=== PATIENT | female | born 1960 | race Caucasian/White ===

== ENCOUNTER 2023-12-28 18:52 | Outpatient (REF) | payer BC, SELFPAY ==
[2024-01-03 14:09] LABS: Age Gdln ACOG Testing Note (.); HPV Aptima Negative (Negative); IGP, Aptima HPV, rfx 16/18,45 Note (.)
== END 2023-12-28 18:53 | disposition home or self-care (01) ==
LOC: LAB 18:52
PROVIDERS: PCP Family Medicine; Visit Provider Physician Assistant
DX: Z01.419 Encounter for gynecological examination (general) (routine) without abnormal findings (principal)
CPT/HCPCS: 87624; G0145

== ENCOUNTER 2025-01-01 20:13 | Outpatient (REF) | payer BC, SELFPAY ==
--- OUTSIDE RECORDS SUMMARY | 2025-01-01 20:16 | XMS_ITS | CCD ---
Author Organization [facility] Care Team Providers Care Fashion Buyer Name Role Phone Tash Recio Primary Care Physician MD Tash Recio Primary Care Provider [phone] MD Brett Scott Attending Provider [phone] MD Tash Recio Primary Care Provider [phone] MD Brett Scott Attending Provider [id number] Brett Scott Attending Unavailable Bertt Scott Admitting Unavailable Tash Recio Primary Care Unavailable Tash Recio Primary Care Unavailable Brett Scott Attending Unavailable Brett Scott Admitting Unavailable DUARTE COLINDRES Admitting Unavailable DUARTE COLINDRES Attending Unavailable ALMITA, DR BIANCHI Primary Care Unavailable KARASIK, DR WEST Admitting Unavailable KARASIK, DR WEST Attending Unavailable ALMITA, DR BIANCHI Primary Care Unavailable KARROLO, DR WEST Consulting Unavailable ALMITA, DR BIANCHI Admitting Unavailable ALMITA, DR BIANCHI Attending Unavailable OBIY, DR BIANCHI Primary Care Unavailable OBIY, DR BIANCHI Consulting Unavailable Unavailable Primary Care Provider UnavailSUNNI Herbert Attending Unavailable KAVITHA IGLESIAS Attending Unavailable SUNNI WALKER Attending Unavailable Denny Barber Admitting Unavailable Denny Barber Attending Unavailable Sunil Denny Referring Unavailable Tash Recio Consulting Unavailable REFERRAL, SELF Admitting Unavailable REFERRAL, SELF Attending Unavailable REFERRAL, SELF Referring Unavailable Tsah Recio Consulting Unavailable Ashwin Ramos Attending Unavailable Ashwin Ramos Attending Unavailable Tash Recio Referring Unavailable DUKE Durand Admitting Unavailabl e Sherin Durand Attending Unavailable NONE, XXXX Referring Unavailable STANJOSE Patel Admitting Unavailable KARENJOSE Patel Sherin L Attending Unavailable Maia Hassan Attending Unavailable Maia Hassan Referring Unavailable Maia Hassan Admitting Unavailable Maia Hassan Referring Unavailable Maia Hassan Attending Unavailable Maia Hassan Attending Unavailable Allergies Allergy Classification Reported Allergen(s) Allergy Type Date of Onset Reaction(s) Facility (1 source) No Known Medication Allergies; Translations: [No Known Medication Allergies] Propensity to adverse reactions (disorder) [facility] Repository Medications Current Medications Medication Drug Class(es) Dates Sig (Normalized) Sig (Original) acetaminophen 500 mg oral tablet (8 sources) Start: 11-23-2022 End: 12-28-2023 acetaminophen 500 mg, Oral, PRN as needed for pain, Refills(s) 0 Start Date: 11/23/22 Status: Ordered ascorbic acid 1000 mg oral tablet (3 sources) Vitamin C Ascorbic Acid (vitamin C) 1000 MG tablet 1 (one) time each day at the same time 0 Active aspirin 81 mg delayed release oral tablet (14 sources) Platelet Aggregation Inhibitor, Nonsteroidal Anti-inflammatory Drug Start: 03-14-2023 take 1 tablet by mouth once daily aspirin 81 mg Oral EC Tab 81 mg = 1 tab(s), Oral, Daily, # 30 tab(s), Refills(s) 0 Start Date: 03/14/23 Status: Ordered Start: 08-05-2021 take 1 capsule by mouth once d aily aspirin 81 mg oral capsule 81 mg = 1 cap(s), Oral, Daily, Blood Thinner Start Date: 08/05/21 Status: Ordered Matilde-C 1000 mg oral tablet (11 sources) Start: 01-31-2022 take 1 tablet by mouth once daily Matilde-C 1000 mg oral tablet 1,000 mg = 1 tab(s), Oral, Daily, Prophylaxis Start Date: 01/31/22 Status: Ordered gabapentin 100 mg oral capsule (3 sources) Anti-epileptic Agent Start: 05-12-2022 take 1 capsule by mouth once daily at bedtime gabapentin 100 mg Cap TAKE ONE CAPSULE BY MOUTH DAILY AT BEDTIME Start Date: 05/12/22 Status: Ordered ibuprofen 200 mg oral tablet (8 sources) Nonsteroidal Anti-inflammatory Drug Start: 11-04-2019 take 200 mg by mouth every six hours as needed for pain Advil 200 mg, Oral, q6hr, PRN as needed for pain, Refills(s) 0, Pain Start Date: 11/04/19 Status: Ordered [facility] [place] Medication (17 sources) Start: 05-12-2022 Misc Medicatio n See Instructions, K-2 BY MOUTH DAILY Start Date: 05/12/22 Status: Ordered Start: 05-12-2022 Misc Medicatio n See Instructions, calcium/magnesium/zinc by mouth daily Start Date: 05/12/22 Status: Ordered Multi Vitamin+ (11 sources) Start: 10-07-2019 take 1 tablet by mouth once daily Multi Vitamin+ 1 tab, Oral, Daily, Refill(s) 0, Prophylaxis Start Date: 10/07/19 Status: Ordered Vitamin D3 1000 intl units oral capsule (8 sources) Start: 01-31-2022 take 1 capsule by mouth once daily Vitamin D3 1000 intl units oral capsule 25 mcg = 1 cap(s), Oral, Daily, takes 6 days a week, Prophylaxis Start Date: 01/31/22 Status: Ordered Completed/Discontinued Medications Medication Drug Class(es) Dates Sig (Normalized) Sig (Original) alendronic acid 70 mg oral tablet (2 sources) Bisphosphonate End: 12-28-2023 take 1 tablet by mouth once daily alendronate (Fosamax) 70 MG tablet 1 tablet 30 minutes before the first food, beverage or medicine of the day with plain water Orally 0 12/28/2023 Discontinued citalopram 20 mg oral tablet (2 sources) Serotonin Reuptake Inhibitor Start: 03-01-2023 End: 12-28-2023 take 1 tablet by mouth in the morning citalopram (CeleXA) 20 MG tablet Take 20 mg by mouth in the morning. 0 03/01/2023 12/28/2023 Discontinued cyclobenzaprine hydrochloride 10 mg oral tablet (2 sources) Muscle Relaxant Start: 07-04-2023 End: 12-28-2023 take 1 tablet by mouth every eight hours as needed cyclobenzaprine (Flexeril) 10 MG tablet Take 10 mg by mouth every 8 (eight) hours if needed 0 07/04/2023 12/28/2023 Discontinued 24 hr desvenlafaxine succinate 25 mg extended release oral tablet (2 sources) Serotonin and Norepinephrine Reuptake Inhibitor Start: 11-04-2023 End: 12-28-2023 take 1 tablet by mouth every twenty-four hours in the morning desvenlafaxine succinate ER 25 MG 24 hour tablet Take 1 tablet by mouth in the morning. 0 11/04/2023 12/28/2023 Discontinued estradiol 0.1 mg/ml vaginal cream (13 sources) Estrogen Start: 05-08-2023 End: 12-28-2023 Estrace 0.1 MG/GM vaginal cream Apply 1 g topically 0 05/08/2023 12/28/2023 Discontinued Start: 05-08-2023 Estrace 0.1 mg /g Cream 1 gm, Topical, MonWedFri, 42.5 gm, Refill(s) 3, apply pea size amount around urethra opening 2x per week, [facility], 154.9, cm, 05/08/23 8:33:00 EDT, Height/Length Dosing, 92, kg, 03/14/23 8:58:00 EDT, Weight Dosing Start Date: 05/08/23 Status: Ordered Start: 08-05-2021 Estrace 0.1 mg /g Cream 1 gm, Topical, MonWedFri, 42.5 gm, Refill(s) 3, apply pea size amount around urethra opening 3x per week, [facility], 154.9, cm, 08/05/21 8:44:00 EDT, Height/Length Dosing, 104.2, kg, 08/05/21 8:44:00 EDT, Weight Dosing Start Date: 08/05/21 Status: Ordered Start: 08-05-2021 Estrace 0.1 mg /g Cream 1 gm, Topical, MonWedFri, 42.5 gm, Refill(s) 3, apply pea size amount around urethra opening 3x per week, [facility], 154.9, cm, 08/05/21 8:44:00 EDT, Height/Length Dosing, 104.2, kg, 08/05/21 8:44:00 EDT, Weight Dosing Start Date: 08/05/21 Status: Ordered fluconazole 150 mg oral tablet (2 sources) Azole Antifungal Start: 01-05-2023 End: 12-28-2023 fluconazole (Diflucan) 150 MG tablet TAKE 1 TABLET BY MOUTH SINGLE DOSE 0 01/05/2023 12/28/2023 Discontinued fluorouracil 50 mg/ml topical cream (2 sources) Nucleoside Metabolic Inhibitor Start: 05-24-2022 End: 12-28-2023 fluorouracil (Efudex) 5 % cream every 12 (twelve) hours 0 05/24/2022 12/28/2023 Discontinued hydrOXYzine hydrochloride 25 mg oral tablet (2 sources) Antihistamine Start: 03-01-2023 End: 12-28-2023 hydrOXYzine HCl (Atarax) 25 MG tablet Take 25 mg by mouth in the morning and 25 mg at noon and 25 mg in the evening and 25 mg before bedtime. 0 03/01/2023 12/28/2023 Discontinued LORazepam 1 mg oral tablet (2 sources) Benzodiazepine Start: 03-13-2023 End: 12-28-2023 take 1 tablet by mouth every eight hours as needed LORazepam (Ativan) 1 MG tablet TAKE ONE TABLET BY MOUTH EVERY 8 HOURS FOR 3 DAYS NEEDED 0 03/13/2023 12/28/2023 Discontinued meloxicam 7.5 mg oral tablet (2 sources) Nonsteroidal Anti-inflammatory Drug Start: 08-03-2023 End: 12-28-2023 take 1-2 tablets by mouth once daily as needed meloxicam (Mobic) 7.5 MG tablet TAKE 1 TO 2 TABLETS BY MOUTH ONCE DAILY NEEDED FOR 30 DAYS 0 08/03/2023 12/28/2023 Discontinued metoprolol tartrate 25 mg oral tablet (2 sources) beta-Adrenergic Roxana Start: 11-04-2023 End: 12-28-2023 take 1 tablet by mouth twice daily at mealtime metoprolol tartrate (Lopressor) 25 MG tablet TAKE ONE TABLET BY MOUTH TWICE A DAY WITH FOOD FOR 30 DAYS 0 11/04/2023 12/28/2023 Discontinued terbinafine 250 mg oral tablet (2 sources) Allylamine Antifungal Start: 11-13-2023 End: 12-28-2023 take 1 tablet by mouth once daily terbinafine (LamISIL) 250 MG tablet Indications: Onychomycosis Take 1 tablet, by mouth, once daily, 90 days 90 tablet 0 11/13/2023 12/28/2023 Discontinued Problems Active Problems Problem Classification Problem Date Documented Da te Episodic/Chronic Abdominal pain (20 sources) Inguinal pain; Translations: [Suprapubic pain] 01-31-2022 Episodic Anxiety disorders (1 source) Anxiety disorder; Translations: [Anxiety disorder, unspecified] Onset: 10-09-2023 Chronic Essential hypertension (1 source) Essential hypertension; Translations: [Essential (primary) hypertension] Onset: 10-09-2023 Chronic Genitourinary symptoms and ill-defined conditions (11 sources) Disorder of urethra 01-31-2022 Episodic Neoplasms of unspecified nature or uncertain behavior (1 source) Neoplasm of unspecified behavior of bone, soft tissue, and skin; Translations: [Neoplasm of unspecified behavior of bone, soft tissue, and skin] Onset: 09-27-2022 Episodic Other nutritional; endocrine; and metabolic disorders (11 sources) Morbid obesity 10-07-2019 Chronic Other screening for suspected conditions (not mental disorders or infectious disease) (2 sources) Patient encounter status; Translations: [Encounter for screening mammogram for malignant neoplasm of breast] 12-27-2023 Episodic Prolapse of female genital organs (11 sources) Overactive bladder due to prolapse of female genital organ 10-07-2019 Chronic Spondylosis; intervertebral disc disorders; other back problems (11 sources) Low back pain 01-31-2022 Episodic Unclassified (10 sources) Long-term current use of opiate analgesic drug Onset: 05-12-2022 05-12-2022 Comment on above: Added secondary to c urrent Opioid Treatment Agreement Urinary tract infections (11 sources) Recurrent urinary tract infection 01-31-2022 Episodic Past or Other Problems Problem Classification Problem Date Documented Da te Episodic/Chronic Sprains and strains (4 sources) Sprain of ligaments of lumbar spine, subsequent encounter; Translations: [SPRAIN LIGAMENTS LUMBAR SPN SUBSQT] Onset: 11-28-2021 Episodic Results Test Name Value Interpretation Reference Range Facility Consent for Treatmenton 12-28 Consent for Treatment [id number] Normal [facility] MA Mamm Screen w/CAD if perf and 3D Bilon 01-15-2024 MA Mamm Screen w/CAD if perf and 3D Mason Exam Date/Time: 01/15/2024 09:43 EST Reason for Exam: Z12.31 Report IMPRESSION: BIRADS 2 BENIGN FINDINGS, NORMAL INTERVAL FOLLOW-UP.12 MONTH RECALL. CLINICAL HISTORY: Z12.31. COMPARISON: 12/16/2022. COMMENT: Routine views and tomosynthesis views of both breasts were obtained. There are scattered areas of fibroglandular density. There are small stable nodular densities with intramammary lymph node suspected. No dominant breast mass nor neoplastic calcifications are identified in either breast. There has been no significant change from the previous exam. The examination was reviewed with Computer Aided Detection. Breast Density: No Mammography is very important to your health. The current [employer] and National [employer] Cancer Network guidelines recommends annual mammography beginning at age 40. This facility utilizes a reminder system to ensure all patients receive reminder notifications at the appropriate time based on the recommendations of this exam. Board Certified Radiologists. Accredited by the ACR and FDA. Ordering Provider: REFERRAL, SELF FINAL REPORT Dictated: 01/15/2024 11:46 am Marlon Carter M.D. Signed (Electronic Signature): 01/15/2024 11:46 am Signed by: Marlon Carter M.D. Transcribed by: GEOVANNY Technologist: [facility] Assessment: BI-RADS Category 2-Benign finding Recommendation: Normal interval follow-up Normal [facility] IGP,APTIMA HPV,AGE GDLNon AGE GDLN ACOG TESTING Note . [facility] Comment on above: TESTS RESULT FLAG UN ITS REF RANGE LAB Clinician Provided Cytology Information Source.............Vagina No. of containers..01 ThinPrep Vial Age Algo ACOG Yovana... 30-65 01 FLAG LEGEND: L-Low Normal,H-High Normal,LL-Alert Low,HH-Alert High <-Panic Low,>-Panic High,A-Abnormal,AA-Critical Abnormal Performed at: 01 =[address] [address] Elaine Hernandez MD, HPV APTIMA Negative Negative [facility] Comment on above: This nucleic acid am plification test detects fourteen high- risk HPV types (16,18,31,33,35,39,45,51,52,56,58,59,66,68) without differentiation. Performed at: =[address] [id number] [place]: Elaine Hernandez MD, Phone: [phone] Performed at: [address] [id number] [place] [place]: Elaine Hernandez MD, Phone: [phone] IGP, APTIMA HPV, RFX 16/18,45 Note . [facility] Comment on above: TESTS RESULT FLAG UN ITS REF RANGE LAB DIAGNOSIS: 02 NEGATIVE FOR INTRAEPITHELIAL LESION OR MALIGNANCY. Specimen adequacy: 02 Satisfactory for evaluation. Endocervical and/or squamous metaplastic cells (endocervical component) are present. Performed by: 02 Bre [place] Pre Certification Specialist (ASCP) . 02 Note: Note 02 The Pap smear is a screening test designed to aid in the detection of premalignant and malignant conditions of the uterine cervix. It is not a diagnostic procedure and should not be used as the sole means of detecting cervical cancer. Both false-positive and false-negative reports do occur. Test Methodology: Note 02 This liquid based ThinPrep(R) pap test was screened with the use of an image guided system. HPV Genotype Reflex Note 02 Criteria not met, HPV Genotype not performed. FLAG LEGEND: L-Low Normal,H-High Normal,LL-Alert Low,HH-Alert High <-Panic Low,>-Panic High,A-Abnormal,AA-Critical Abnormal Performed at: [address] [address] Elaine Hernandez MD, SPATULA-ALONE [facility] ED Note-Physicianon 10-10-20 ED Note-Physician Basic Information abdomenTime Seen: Rito WALL, Ernie 10/09/2023 09:47 Chief Complaint Pt reports she got dizzy with bilateral tingling in arms this AM around 0830. Pt reports she was feeling anxious and stressed at the time. Hx of anxiety. denies vision/speech changes. denies medical hx. denies chest pain/sob. History of Present Illness 60-year-old female comes to the ED for evaluation of paresthesias. The patient states she was at work when she became very stressed and felt like her blood pressure spiked. She states she felt weak dizzy and had generalized paresthesias. No focal area of weakness. No unilateral paresthesias. No associated headache or visual changes. No chest pain or shortness of breath. No abdominal pain nausea or vomiting. She states she did have a similar episode in the past and was seen by cardiology that time and it was thought to be due to anxiety. She states overall she is feeling improved upon evaluation here, but continues to have some generalized tingling. Review of Systems A 10 point review of systems is negative except as noted above. Medical and Surgical History: Reviewed and noted Social history: Lives at home Tobacco: Denies Physical Exam Vitals & Measurements T: 36.5 ?C(Oral) HR: 100(Peripheral) RR: 16 BP: 170/98 SpO2: 97% HT: 155 cm WT: 97.6 kg BMI: 40.62 Nurses notes and vital signs reviewed and patient is not hypoxic. General: Awake and alert, mildly anxious in appearance Skin: Warm, dry, no pallor noted. Head: Atraumatic. Neck: No JVD. Eye: Normal conjunctiva. Ears, Nose, Mouth, and Throat: Moist mucous members. Cardiovascular: Strong distal pulses. Normal cardiac rate. No peripheral edema. Chest wall: Respiratory: Respirations are nonlabored. Clear to auscultation. Back: Normal range of motion, no CVA tenderness. Musculoskeletal: Normal ROM with no gross deformity. Gastrointestinal: Soft and nontender. Urological: Neurological: Awake and alert. No focal deficits. Follows commands. GCS 15. NIHSS 0 performed at 0947 Psychiatric: Cooperative. Medical Decision Making Patient presents with generalized paresthesias, shakiness and sensation of her blood pressure spiking. She does states she had a history of this in the past with anxiety. She is off anxiety medication and declined. Medical work-up was obtained. Laboratory studies reviewed and noted. EKG with no ischemic changes. Chest x-ray with no acute infiltrates. Her blood pressure has trended down throughout her ED stay and on serial examination she is feeling improved. Results are discussed at length with her. Sound like she had a similar presentation in the past and was seen by cardiology who felt her symptoms were likely related to anxiety. This does fit her presentation today as well. However, with her presenting elevated blood pressure did recommend she transfer her blood pressures at home and discuss with her PCP. She continues to have no associated chest pain or neurological deficits. She is discharged to follow-up with PCP. Patient was encouraged to return to the ED if symptoms worsen or change. Assessment/Plan Anxiety (F41.9: Anxiety disorder, unspecified) Hypertension (I10: Essential (primary) hypertension) Orders: Automated Diff Basic Metabolic Panel CBC w/ Auto Diff ED Cardiac Monitoring eGFR Extra SST Tube Oxygen Saturation Oxygen Therapy PT & PTT Saline Lock Insert Troponin 0 Hr. Troponin 3 Hr. Troponin 6 Hr. Troponin 9 Hr. XR Chest Single View Disposition Plan Patient Discharge Condition Disposition: Discharged home Condition: Improved and stable Counseled: Patient and/or family were counseled to workup, results, treatment plan and follow-up recommendations Discharge Prescription List Prescriptions No active prescription medications Follow-up With When Contact Information Tash Recio In 3 days 10/12/2023 EST [address] [facility] [address] [place] [id number] Business (1) Additional Instructions: Patient Education Managing Anxiety, Adult Hypertension, Adult Attestation Patient seen and evaluated by the physician hospital administrative assistant. Attending physician was present in the emergency department and supervised care. This visit was performed by both the physician and an APC. I performed all aspects of the MDM as documented. This report was transcribed using voice recognition software. Every effort was made to ensure accuracy, however, inadvertently computerized supervisor research kennel mistakes may be present. Appropriate healthcare PPE was used in evaluating this patient. The patient was placed in a mask. The healthcare provider was wearing mask, gloves, and utilizing proper hand hygiene. All equipment was properly cleansed. Problem List/Past Medical History Ongoing Long-term current use of opiate analgesic drug Obesity, Class III, BMI 40-49.9 (morbid obesity) Overactive bladder due to prolapse of female genital organ Historical Inguinal pain Recurrent UTI (more content not included)... Normal [facility] Comment on above: Result Comment: Elec tronically Signed By: rEnie Veras PA-C\.br\Date and Time Signed: 10/09/23 11:28 EST\.br\Electronically Co-Signed By: Ashwin Ramos DO\.br\Date and Time Co-Signed: 10/10/23 06:57 EST Auto Diffon 10-09-2023 Basophils/100 WBC (Bld) 0.3 % Normal 0.0-2.0 [facility] Comment on above: Order Comment: Order Added by Discern Expert. Performed By: #### 2 [id number], [id number], [id number], [id number], [id number], [id number] ####[facility] [address] [place] [address] Basophils/Leukocytes Auto (Bld) [Pure # fraction] 0.0 E9/L Normal 0.0-0.2 [facility] Comment on above: Order Comment: Order Added by Discern Expert. Performed By: #### 2 550241, [id number], [id number], 2500525, [id number], [id number] ####[address] [address] Eosinophils/100 WBC (Bld) 0.2 % Normal 0.0-8.0 [facility] Comment on above: Order Comment: Order Added by Discern Expert. Performed By: #### 2 306372, [id number], 97668294, 8018265, 5950728, [id number] ####[address] [address] Eosinophils/Leukocytes Auto (Bld) [Pure # fraction] 0.0 E9/L Normal 0.0-0.5 [facility] Comment on above: Order Comment: Order Added by Discern Expert. Performed By: #### 2 912239, [id number], [id number], 0138359, 1865923, [id number] ####[address] [address] Lymphocytes/100 WBC (Bld) 20.3 % Normal 14.0-50.0 [facility] Comment on above: Order Comment: Order Added by Discern Expert. Performed By: #### 2 906991, [id number], 64600098, 4619231, 2758362, [id number] ####[address] [address] Lymphocytes/Leukocytes Auto (Bld) [Pure # fraction] 1.0 E9/L Normal 1.0-4.0 [facility] Comment on above: Order Comment: Order Added by Discern Expert. Performed By: #### 2 140243, [id number], [id number], 1568296, 2156860, [id number] ####[address] [address] Monocytes/100 WBC (Bld) 4.6 % Normal 4.0-14.0 [facility] Comment on above: Order Comment: Order Added by Discern Expert. Performed By: #### 2 945795, [id number], 70195552, 8815477, 3709343, [id number] ####[address] [place] [address] Monocytes/Leukocytes Auto (Bld) [Pure # fraction] 0.2 E9/L Normal 0.2-1.0 [facility] Comment on above: Order Comment: Order Added by Discern Expert. Performed By: #### 2 446362, 78535123, 90343912, 0044175, 9119114, [id number] ####[facility] [address] [place] [address] Neutrophils/100 WBC (Bld) 74.6 % Normal 36.0-75.0 [facility] Comment on above: Order Comment: Order Added by Discern Expert. Performed By: #### 2 540986, [id number], [id number], 2908633, 8121039, [id number] ####[facility] [address] [place] [address] Neutrophils/Leukocytes Auto (Bld) [Pure # fraction] 3.8 E9/L Normal 2.0-7.5 [facility] Comment on above: Order Comment: Order Added by Discern Expert. Performed By: #### 2 611668, 37395055, 83848064, 2589595, 6004402, [id number] ####[facility] [address] [place] [address] BMP 10-09-2023 Creatinine [Mass/Vol] 0.8 mg/dL Normal 0.5-1.3 [facility] Comment on above: Performed By: #### 2 033011, [id number], 47866080, 5520410, 1425930, [id number] ####[facility] [address] [place] [address] Urea nitrogen [Mass/Vol] 14 mg/dL Normal 5-21 [facility] Comment on above: Performed By: #### 2 295387, 57972889, 34924320, 1396003, 1919824, [id number] ####[facility] [address] [place] [address] Urea nitrogen/Creatinine [Mass ratio] 18 No Units Normal 10-20 [facility] Comment on above: Performed By: #### 2 685798, 94467244, 73722707, 5986930, 6245967, [id number] ####[facility] [address] [place] [address] Anion gap [Moles/Vol] 11 mmol/L Normal 6-16 [facility] Comment on above: Performed By: #### 2 329306, [id number], 61853804, 7470847, 0983858, [id number] ####[facility] [address] [place] [address] Calcium [Mass/Vol] 9.1 mg/dL Normal 8.9-11.1 [facility] [facility] Comment on above: Performed By: #### 2 101301, [id number], [id number], 4223805, 0150724, [id number] ####[facility] [address] [place] [address] Chloride [Moles/Vol] 106 mmol/L Normal 101-111 [facility] Comment on above: Performed By: #### 2 283942, [id number], [id number], 9296148, 4596184, 12042938 ####[facility] [address] [place] [address] CO2 [Moles/Vol] 25 mmol/L Normal 21-31 [facility] Comment on above: Performed By: #### 2 668147, 16074575, 93073636, 4168567, 5220984, 61188320 ####[facility] [address] [place] [address] Glucose [Mass/Vol] 117 mg/dL Normal 55-199 [facility] Comment on above: Result Comment: If t his glucose result represents a fasting glucose, interpretation should refer to the following reference range: 55-99 mg/dL Performed By: #### 2 209819, [id number], 04395321, 5018644, 9541610, 07624897 ####[facility] [address] [place] [address] Potassium [Moles/Vol] 3.6 mmol/L Normal 3.5-5.3 [facility] Comment on above: Performed By: #### 2 779849, 98849615, 98062490, 4474057, 3656351, 86096132 ####[facility] [address] [place] [address] Sodium [Moles/Vol] 138 mmol/L Normal 135-145 [facility] Comment on above: Performed By: #### 2 120453, 39870179, 00269386, 6115780, 4827517, 51267657 ####[facility] [address] [place] [address] CBC w/ Auto Diffon 3 Erythrocyte distribution width (RBC) [Ratio] 13.9 % Normal 10.9-14.2 [facility] Comment on above: Performed By: #### 2 478388, 20794589, 88794613, 0722606, 9845107, 66144721 ####[facility] [address] [place] [address] Hematocrit (Bld) [Volume fraction] 43.9 % Normal 34.0-46.0 [facility] Comment on above: Performed By: #### 2 074263, 91711995, 73635017, 1981483, 9915759, 60425769 ####[facility] [address] [place] [address] Hemoglobin (Bld) [Mass/Vol] 14.4 g/dL Normal 12.0-16.0 [facility] Comment on above: Performed By: #### 2 483193, 08078444, 55587725, 5531811, 2537657, 58370675 ####[facility] [address] [place] [address] MCH (RBC) [Entitic mass] 28.7 pg Normal 27.0-34.0 [facility] Comment on above: Performed By: #### 2 835801, 35558864, 35419089, 3291308, 4825805, 20424343 ####[facility] [address] [place] [address] MCHC (RBC) [Mass/Vol] 32.8 g/dL Normal 31.4-36.0 [facility] Comment on above: Performed By: #### 2 641369, 46087404, 48154321, 5048644, 3308312, 56869889 ####[place] [address] MCV (RBC) [Entitic vol] 87.4 fL Normal 80.0-100.0 [facility] Comment on above: Performed By: #### 2 042781, 45485519, 92365154, 2981525, 7166219, 24875214 ####[address] [address] Platelet mean volume (Bld) [Entitic vol] 8.6 fL Normal 6.4-10.8 [facility] Comment on above: Performed By: #### 2 630876, 52147539, 53687686, 9799987, 6556765, 54754233 ####[address] [address] Platelets (Bld) [#/Vol] 168.0 E9/L Normal 150.0-500.0 [facility] Comment on above: Performed By: #### 2 185517, 35448629, 24798456, 6106861, 8389964, 47444394 ####[address] [address] RBC (Bld) [#/Vol] 5.0 E12/L Normal 4.3-5.9 [facility] Comment on above: Performed By: #### 2 858065, 70182612, 73361829, 3376666, 1570945, 60847123 ####[place] [address] [place] [address] WBC corrected for nucl RBC Auto (Bld) [#/Vol] 5.1 E9/L Normal 4.0-11.0 [facility] Comment on above: Performed By: #### 2 308190, 43633724, 32377825, 2391943, 9707397, 25922834 ####[facility] [address] [place] [address] CHEMISTRYOrdered By: SYSTEM SYSTEM on 10-09-2023 Anion gap [Moles/Vol] 11 mmol/L Normal 6 - 16 mEq/L [facility] Calcium [Mass/Vol] 9.1 mg/dL Normal 8.9 - 11. 1 mg/dL [facility] Chloride [Moles/Vol] 106 mmol/L Normal 101 - 1 11 mmol/L [facility] CO2 [Moles/Vol] 25 mmol/L Normal 21 - 31 mmol/L [facility] Creatinine [Mass/Vol] 0.8 mg/dL Normal 0.5 - 1.3 mg/dL [facility] GFR/1.73 sq M.predicted among non-blacks MDRD (S/P/Bld) [Vol rate/Area] 83 mL/min/1.73 m2 Normal >=59mL/min/1 .73 m2 [facility] Chem S Comment on above: Interpretive Data: C hronic kidney disease could be indicated at eGFR's of less than 60 mL/min/1.73m2. Kidney failure is indicated at less than 15 mL/min/1.73m2. Glucose [Mass/Vol] 117 mg/dL Normal 55 - 199 mg/dL [facility] Comment on above: Interpretive Data: I f this glucose result represents a fasting glucose, interpretation should refer to the following reference range: 55-99 mg/dL Potassium [Moles/Vol] 3.6 mmol/L Normal 3.5 - 5.3 mmol/L [facility] Sodium [Moles/Vol] 138 mmol/L Normal 135 - 145 mmol/L [facility] Troponin I.cardiac [Mass/Vol] 3.10 pg/mL Low 10.10 - 27.10 pg/mL [facility] Comment on above: Interpretive Data: T he 95% CI (Confidence Interval) PPV (Positive Predictive Value) for myocardial infarction in females is 38 pg/mL, in males 51 pg/mL. The results should be used in conjunction with clinical conditions of myocardial infarction. (Access High Sensitivity Troponin I Instructions For Use, Iván Kenton, June 2018) Urea nitrogen [Mass/Vol] 14 mg/dL Normal 5 - 21 mg/dL [facility] Remisol Urea nitrogen/Creatinine [Mass ratio] 18 mg/mg Normal 10 - 20 [facility] Remisol CHEMISTRYOrdered By: Lab ROP User on 10-09-2023 Glucose [Mass/Vol] 111 mg/dL High 55 - 99 mg/dL [facility] POC Subsection POC Username [email or web address] Invalid Interpretation Code [facility] POC Subsection Sodium [Moles/Vol] [id number] mmol/L Invalid Interpretation Code [facility] POC Subsection Sodium [Moles/Vol] [id number] mmol/L Invalid Interpretation Code [facility] POC Subsection COAGULATIONOrdered By: Elly Stout on 10-09-2023 aPTT Coag (PPP) [Time] 32.5 s Normal 25.1 - 36.5 second(s) [facility] Auto Coag Comment on above: Interpretive Data: Analilia hankins 15 days - 4 weeks 1 - 5 months 6 - 11 months 1 - 5 years 6 - 10 years 11 - 17 years PTT Mean: 35.4 (27.6-45.6) Mean: 33.5 (24.8-40.7) Mean: 32.4 (25.1-40.7) Mean: 31.6 (24.0-39.2) Mean: 31.6 (26.9-38.7) Mean: 31.0 (24.6-38.4) Pediatric Reference ranges were obtained from a study by Linwood Mi et al. prepared from 1437 samples obtained at 7 different centers using the same coagulation reagent and instrumentation as [facility]. Currently there are no coagulation studies available worldwide for children to 14 days, and no normal ranges. Heparin therapeutic range (represented by Anti-Factor Xa activity of 0.2 - 0.4 U/mL) corresponds to PTT of 56.6 - 109.0 sec. INR Coag (PPP) [Relative time] 1.2 {INR} Invalid Interpretation Code [facility] Auto Coag Comment on above: Interpretive Data: I NR results are specifically intended to assess patients stabilized on long-term Anticoagulation therapy suggested INR s Less Intensive Anticoagulation 2.0 3.0 Conventional Range 3.0 4.5 PT Coag (PPP) [Time] 13.5 s High 9.4 - 1 2.5 second(s) [facility] Auto Coag Comment on above: Interpretive Data: 1 5 days - 4 weeks 1 - 5 months 6 -11 months 1-5 years 6-10 years 11 -17 years Mean: 11.2 (9.5-12.6) Mean: 11.0 (9.7-12.8) Mean: 11.0 (9.8-13.0) Mean: 11.3 (9.9-13.4) Mean: 11.7 (10.0-14.6) Mean: 11.8 (10.0 - 14.1) Pediatric Reference ranges were obtained from a study by abmer Yan al. prepared from 1437 samples obtained at 7 different centers using the same coagulation reagent and instrumentation as [facility]. Currently there are no coagulation studies available worldwide for children to 14 days, and no normal ranges. Capillary Glucose POCon 09-27 Glucose [Mass/Vol] 111 mg/dL High 55-99 [facility] Comment on above: Performed By: #### 2 [id number] #### [facility] [address] [place] [address] Consent for Treatmenton 09-27 Consent for Treatment [id number] .00TIFF Normal [facility] Discharge Instructionson Discharge Instructions [id number] 1.00TIFF Normal [facility] ED Clinical Summaryon 2022 ED Clinical Summary [address] [address] ED Clinical Summary Person Information Name: CLARICE DICKINSON [place]ha/[place] Age: 63 Years : 1960 Sex: Female Language: Sudanese PCP: Tash Recio MD Marital Status: Phone: [phone] MRN: Visit Id: Visit Reason: Anxiety; Paresthesia; Dizziness; LIGHT HEADED, DIZZY Speciality: Acuity: 3 Enc Type: Emergency Med Service: Emergency Arrival: 10/09/2023 09:38:37 Discharge: 10/09/2023 11:23:02 LOS: 000 01:45 Checkin: 10/09/2023 09:38:37 Checkout: 10/09/2023 11:23:02 Dispo Type: Home (Routine DC) EVENTS: Event Name Event Status Request Date/Time Start Date/Time Complete Date/Time Arrive Complete 10/09/2023 09:38:37 10/09/2023 09:38:37 10/09/2023 09:38:37 Document Home Meds Request 10/09/2023 09:38:37 Triage Complete 10/09/2023 09:38:37 10/09/2023 09:48:47 10/09/2023 09:48:47 Bed Assign Complete 10/09/2023 09:41:00 10/09/2023 09:41:00 10/09/2023 09:41:00 Dr Exam Complete 10/09/2023 09:41:00 10/09/2023 09:47:31 10/09/2023 09:47:31 RN Exam Complete 10/09/2023 09:41:00 10/09/2023 10:10:12 10/09/2023 10:10:12 Registration Complete 10/09/2023 09:41:47 10/09/2023 09:41:47 10/09/2023 09:41:47 Reg Complete Request 10/09/2023 09:41:47 Reg Bed Request Complete 10/09/2023 09:41:48 10/09/2023 09:41:48 10/09/2023 09:41:48 EKG Complete 10/09/2023 09:44:58 10/09/2023 10:03:50 Registration Request 10/09/2023 09:47:31 Dr Exam Complete 10/09/2023 09:52:25 10/09/2023 09:52:25 10/09/2023 09:52:25 Pending Labs Complete 10/09/2023 09:55:31 10/09/2023 09:55:31 10/09/2023 09:55:32 Pending Labs Request 10/09/2023 09:56:48 Lab Complete 10/09/2023 09:56:48 10/09/2023 10:36:52 Patient Care Request 10/09/2023 09:56:48 RT Request 10/09/2023 09:56:48 X-Ray Complete 10/09/2023 09:56:48 10/09/2023 10:13:55 10/09/2023 10:25:48 Pending Labs Complete 10/09/2023 10:15:41 10/09/2023 10:15:41 10/09/2023 10:36:52 Lab Complete 10/09/2023 10:15:41 10/09/2023 10:15:41 10/09/2023 10:36:52 Pending Labs Complete 10/09/2023 10:20:47 10/09/2023 10:20:47 10/09/2023 10:20:55 Lab Complete 10/09/2023 10:20:48 10/09/2023 10:20:48 10/09/2023 10:20:55 Pending Labs Complete 10/09/2023 10:25:27 10/09/2023 10:25:27 10/09/2023 10:25:27 Wet Read Complete 10/09/2023 10:25:48 10/09/2023 10:26:31 10/09/2023 10:26:31 Discharge Complete 10/09/2023 11:08:37 10/09/2023 11:23:07 10/09/2023 11:23:07 Transfer Complete 10/09/2023 11:23:07 10/09/2023 11:23:07 10/09/2023 11:23:07 ADDRESS: [address] [facility] [id number] [facility] DOC NOTES: MEDICAL INFORMATION: Prescriptions Given: Medications to Continue with No Changes Other Medications acetaminophen 500 Milligram By Mouth as needed as needed for pain. ascorbic acid (Matilde-C 1000 mg oral tablet) 1 Tablets By Mouth every day. aspirin (aspirin 81 mg Oral EC Tab) 1 Tablets By Mouth every day. estradiol topical (Estrace 0.1 mg/g Cream) 1 Gram Topical Monday. apply pea size amount around urethra opening 2x per week. Refills: 3. multivitamin (Multi Vitamin+) 1 tab By Mouth every day. Non-Formulary Medication (Misc Medication) calcium/magnesium/zin c by mouth daily. PATIENT EDUCATION INFORMATION: Instructions: Managing Anxiety, Adult; Hypertension, Adult Follow up: With: Address: When: Tash Recio [address], [address] [place] [id number] Business (1) In 3 days 10/12/2023 DIAGNOSIS: Anxiety; Hypertension Normal [facility] ED Patient Education Noteon 10-09-2023 ED Patient Education Note Cardiovascular Hypertension, Adult High blood pressure (hypertension) is when the force of blood pumping through the arteries is too strong. The arteries are the blood vessels that carry blood from the heart throughout the body. Hypertension forces the heart to work harder to pump blood and may cause arteries to become narrow or stiff. Untreated or uncontrolled hypertension can lead to a heart attack, heart failure, a stroke, kidney disease, and other problems. A blood pressure reading consists of a higher number over a lower number. Ideally, your blood pressure should be below 120/80. The first ( top ) number is called the systolic pressure. It is a measure of the pressure in your arteries as your heart beats. The second ( bottom ) number is called the diastolic pressure. It is a measure of the pressure in your arteries as the heart relaxes. What are the causes? The exact cause of this condition is not known. There are some conditions that result in high blood pressure. What increases the risk? Certain factors may make you more likely to develop high blood pressure. Some of these risk factors are under your control, including: ? Smoking. ? Not getting enough exercise or physical activity. ? Being overweight. ? Having too much fat, sugar, calories, or salt (sodium) in your diet. ? Drinking too much alcohol. Other risk factors include: ? Having a personal history of heart disease, diabetes, high cholesterol, or kidney disease. ? Stress. ? Having a family history of high blood pressure and high cholesterol. ? Having obstructive sleep apnea. ? Age. The risk increases with age. What are the signs or symptoms? High blood pressure may not cause symptoms. Very high blood pressure (hypertensive crisis) may cause: ? Headache. ? Fast or irregular heartbeats (palpitations). ? Shortness of breath. ? Nosebleed. ? Nausea and vomiting. ? Vision changes. ? Severe chest pain, dizziness, and seizures. How is this diagnosed? This condition is diagnosed by measuring your blood pressure while you are seated, with your arm resting on a flat surface, your legs uncrossed, and your feet flat on the floor. The cuff of the blood pressure monitor will be placed directly against the skin of your upper arm at the level of your heart. Blood pressure should be measured at least twice using the same arm. Certain conditions can cause a difference in blood pressure between your right and left arms. If you have a high blood pressure reading during one visit or you have normal blood pressure with other risk factors, you may be asked to: ? Return on a different day to have your blood pressure checked again. ? Monitor your blood pressure at home for 1 week or longer. If you are diagnosed with hypertension, you may have other blood or imaging tests to help your health care provider understand your overall risk for other conditions. How is this treated? This condition is treated by making healthy lifestyle changes, such as eating healthy foods, exercising more, and reducing your alcohol intake. You may be referred for counseling on a healthy diet and physical activity. Your health care provider may prescribe medicine if lifestyle changes are not enough to get your blood pressure under control and if: ? Your systolic blood pressure is above 130. ? Your diastolic blood pressure is above 80. Your personal target blood pressure may vary depending on your medical conditions, your age, and other factors. Follow these instructions at home: Eating and drinking ? Eat a diet that is high in fiber and potassium, and low in sodium, added sugar, and fat. An example of this eating plan is called the DASH diet. DASH stands for Dietary Approaches to Stop Hypertension. To eat this way: ? Eat plenty of fresh fruits and vegetables. Try to fill one half of your plate at each meal with fruits and vegetables. ? Eat whole grains, such as whole-wheat pasta, brown rice, or whole-grain bread. Fill about one fourth of your plate with whole grains. ? Eat or drink low-fat dairy products, such as skim milk or low-fat yogurt. ? Avoid fatty cuts of meat, processed or cured meats, and poultry with skin. Fill about one fourth of your plate with lean proteins, such as fish, chicken without skin, beans, eggs, or tofu. ? Avoid pre-made and processed foods. These tend to be higher in sodium, added sugar, and fat. ? Reduce your daily sodium intake. Many people with hypertension should eat less than 1,500 mg of sodium a day. ? Do not drink alcohol if: ? Your health care provider tells you not to drink. ? You are , may be , or are planning to become . ? If you drink alcohol: ? Limit how much you have to: ? 0?1 drink a day for women. ? 0?2 drinks a day for men. ? Know how much alcohol is in your drink. In the [place] one drink equals one 12 oz bottle of beer (355 mL), one 5 oz glass of wine (148 mL), or one 1? oz glass (more content not included)... Normal [facility] ED Patient Summaryon 023 ED Patient Summary [address] [address] Patient Discharge Instructions Person Information Name: CLARICE DICKINSON Age: 63 Years Arrival Date: 10/09/2023 09:38:37 Discharge Diagnosis: Anxiety; Hypertension Primary Care Physician: Tash Recio MD Provider Information Primary Provider: Ashwin Ramos DO Advanced [employer] Musician:Ernie Veras PA-C The exam and treatment you received in the Emergency Department were for an urgent problem and are not intended as complete care. It is important that you follow up with a doctor, nurse practitioner, or physician?s hospital administrative assistant for ongoing care. If your symptoms become worse or you do not improve as expected and you are unable to reach your usual health care provider, you should return to the Emergency Department. We are available 24 hours a day. CLARICE DICKINSON has been given the following list of patient education materials, prescriptions and follow-up instructions: Follow-up Instructions: With: Address: When: Tash Recio [address] [place] [address], [place] [address] Business (1) In 3 days 10/12/2023 In the event that this physician does not participate in your insurance network, please consult with your insurance company to find a nearby participating provider. Patient Education Materials: Managing Anxiety, Adult; Hypertension, Adult A MESSAGE TO ALL PATIENTS REGARDING OPIOIDS PRESCRIPTION OPIOIDS: WHAT YOU NEED TO KNOW Prescription opioids can be used to help relieve gtiyszji-ax-rdkeyb pain and are often prescribed following a surgery or injury, or for certain health conditions. These medications can be an important part of the treatment but also come with serious risks. It is important to work with your healthcare provider to make sure you are getting the safest, most effective care. WHAT ARE THE RISKS AND SIDE EFFECTS OF OPIOID USE? Prescription opioids carry serious risks of addiction and overdose, especially with prolonged use. An opioid overdose, often marked by slowed breathing, can cause sudden . The use of prescription opioids can have a number of side effects as well, even when taken as directed: ? Tolerance?meaning you might need to take more of the medication for the same pain relief ? Physical dependence?meaning you have symptoms of withdrawal when a medication is stopped ? Increased sensitivity to pain ? Constipation ? Nausea, vomiting, and dry mouth ? Sleepiness and dizziness ? Confusion ? Depression ? Low levels of testosterone that can result in lower sex drive, energy, and strength ? Itching and sweating RISKS ARE GREATER WITH: ? History of drug misuse, substance use disorder, or overdose ? Mental health conditions (such as depression or anxiety) ? Sleep apnea ? Older age (65 years and older) ? Avoid alcohol while taking prescription opioids. Also, unless specifically advised by your health care provider, medications to avoid include: ? Benzodiazepines (such as Xanax or Valium) ? Muscle relaxants (such as Soma or Flexeril) ? Hypnotics (such as Ambien or Lunesta) ? Other prescription opioids KNOW YOUR OPTIONS Talk to your health care provider about ways to manage your pain that don?t involve prescription opioids. Some of these options may actually work better and have fewer risks and side effects. Options may include: ? Pain relievers such as acetaminophen, ibuprofen, and naproxen ? Some medication that are also used for depression or seizures ? Physical therapy and exercise ? Cognitive behavioral therapy, a psychological, goal-directed approach, in which patients learn how to modify physical, behavioral, and emotional triggers of pain and stress. IF YOU ARE PRESCRIBED OPIOIDS FOR PAIN: ? Never take opioids in greater amounts or more often than prescribed. ? Follow up with your primary health care provider. o Work together to create a plan on how to manage your pain. o Talk about ways to help manage your pain that don?t involve prescription opioids. o Talk about any and all concerns and side effects. ? Help prevent misuse and abuse o Never sell or share prescription opioids. o Never use another person?s prescription opioids. ? Store prescription opioids in a secure place and out of reach of others (this may include visitors, children, friends, and family). ? Safely dispose of unused prescription opioids: Find your community drug take-back program or your pharmacy mail-back program, or flush them down the toilet, following guidance from the Food and Drug Administration (www.fda.gov/Drugs/Re sourcesForYou). ? Visit www.cdc.gov/drugoverd ose to learn about the risks of opioids abuse and overdose. ? If you believe you may be struggling with addiction, tell your health career technical education instructor and ask for guidance or call [facility]?S National Helpline at 3-697- (more content not included)... Normal [facility] HEMATOLOGYOrdered By: SYSTEM SYSTEM on 10-09-2023 Basophils/100 WBC (Bld) 0.3 % Normal 0.0 - 2.0 % [facility]eAutoSS Basophils/Leukocytes Auto (Bld) [Pure # fraction] 0.0 E9/L Normal 0.0 - 0.2 E9/L [facility]eAutoSS Eosinophils/100 WBC (Bld) 0.2 % Normal 0.0 - 8.0 % [facility]eAutoSS Eosinophils/Leukocytes Auto (Bld) [Pure # fraction] 0.0 E9/L Normal 0.0 - 0.5 E9/L [facility] Lymphocytes/100 WBC (Bld) 20.3 % Normal 14.0 - 50.0 % [facility]eAuto[facility] Lymphocytes/Leukocytes Auto (Bld) [Pure # fraction] 1.0 E9/L Normal 1.0 - 4.0 E9/L [facility]Auto[facility] Monocytes/100 WBC (Bld) 4.6 % Normal 4.0 - 14.0 % [facility]eAutoSS Monocytes/Leukocytes Auto (Bld) [Pure # fraction] 0.2 E9/L Normal 0.2 - 1.0 E9/L [facility]AutoSS Neutrophils/100 WBC (Bld) 74.6 % Normal 36.0 - 75.0 % [facility]eAutoSS Neutrophils/Leukocytes Auto (Bld) [Pure # fraction] 3.8 E9/L Normal 2.0 - 7.5 E9/L [facility] HemeAutoSS HEMATOLOGYOrdered By: Sd Jack on 10-09-2023 Erythrocyte distribution width (RBC) [Ratio] 13.9 % Normal 10.9 - 14.2 % [facility] HemeAutoSS Hematocrit (Bld) [Volume fraction] 43.9 % Normal 34.0 - 46.0 % [facility] Hemoglobin (Bld) [Mass/Vol] 14.4 g/dL Normal 12.0 - 16.0 gm/dL [facility]eAutoSS MCH (RBC) [Entitic mass] 28.7 pg Normal 27.0 - 34.0 pg [facility]eAutoSS MCHC (RBC) [Mass/Vol] 32.8 g/dL Normal 31.4 - 36.0 gm/dL [facility] MCV (RBC) [Entitic vol] 87.4 fL Normal 80.0 - 100.0 fL [facility]eAutoSS Platelet mean volume (Bld) [Entitic vol] 8.6 fL Normal 6.4 - 10.8 fL [facility]eAutoSS Platelets (Bld) [#/Vol] 168.0 E9/L Normal 150.0 - 500.0 E9/L FT HemeAutoSS RBC (Bld) [#/Vol] 5.0 E12/L Normal 4.3 - 5.9 E12/L FT HemeAutoSS WBC corrected for nucl RBC Auto (Bld) [#/Vol] 5.1 E9/L Normal 4.0 - 11.0 E9/L [facility] HemeAutoSS Monitor Recordon 10-09-2023 Monitor Record [id number]# 1.00TIFF Normal [facility] Monitor Record [id number]# 1.00TIFF Normal [facility] PT & PTTon 10-09-2023 aPTT Coag (PPP) [Time] 32.5 second(s) Normal 25.1-36.5 [facility] Comment on above: Result Comment: Para meter 15 days - 4 weeks 1 - 5 months 6 - 11 months 1 - 5 years 6 - 10 years 11 - 17 years PTT Mean: 35.4 (27.6-45.6) Mean: 33.5 (24.8-40.7) Mean: 32.4 (25.1-40.7) Mean: 31.6 (24.0-39.2) Mean: 31.6 (26.9-38.7) Mean: 31.0 (24.6-38.4) Pediatric Reference ranges were obtained from a study by Linwood Mi et al. prepared from 1437 samples obtained at 7 different centers using the same coagulation reagent and instrumentation as [facility]. Currently there are no coagulation studies available worldwide for children to 14 days, and no normal ranges. Heparin therapeutic range (represented by Anti-Factor Xa activity of 0.2 - 0.4 U/mL) corresponds to PTT of 56.6 - 109.0 sec. Performed By: #### 2 [id number], [id number], [id number], [id number], [id number], [id number] ####[facility] [address] [place] [address] INR Coag (PPP) [Relative time] 1.2 {INR} Invalid Interpretation Code [facility] Comment on above: Result Comment: INR results are specifically intended to assess patients stabilized on long-term Anticoagulation therapy suggested INR?s ?Less Intensive Anticoagulation? 2.0 ? 3.0 Conventional Range 3.0 ? 4.5 Performed By: #### 2 [id number], [id number], [id number], [id number], [id number], [id number] ####[facility] [address] [place] [address] PT Coag (PPP) [Time] 13.5 second(s) High 9.4-12.5 [facility] Comment on above: Result Comment: 15 d ays - 4 weeks 1 - 5 months 6 -11 months 1- 5 years 6-10 years 11 -17 years Mean: 11.2 (9.5-12.6) Mean: 11.0 (9.7-12.8) Mean: 11.0 (9.8-13.0) Mean: 11.3 (9.9-13.4) Mean: 11.7 (10.0-14.6) Mean: 11.8 (10.0 - 14.1) Pediatric Reference ranges were obtained from a study by Linwood Mi et al. prepared from 1437 samples obtained at 7 different centers using the same coagulation reagent and instrumentation as [facility]. Currently there are no coagulation studies available worldwide for children to 14 days, and no normal ranges. Performed By: #### 2 [id number], [id number], [id number], [id number], [id number], [id number] ####[facility] [address] [place] [address] Prescriptions/Work Noteson 1 12-09-2022 Prescriptions/Work Notes [id number]# 1.00TIFF Normal [facility] Troponin 0 Hr.on 10-09-2023 Troponin I.cardiac [Mass/Vol] 3.10 pg/mL Low 10.10-27.10 [facility] Comment on above: Result Comment: The 95% CI (Confidence Interval) PPV (Positive Predictive Value) for myocardial infarction in females is 38 pg/mL, in males 51 pg/mL. The results should be used in conjunction with clinical conditions of myocardial infarction. (Access High Sensitivity Troponin I Instructions For Use, Iván Larry, June 2018) Performed By: #### 2 [id number], [id number], [id number], [id number], [id number], [id number] ####[facility] [address] [place] [address] XR Chest Single Viewon 10-09 XR Chest Single View Exam Date/Time: 10/09/2023 10:25 EST Reason for Exam: Chest pain Report IMPRESSION: NO EVIDENCE OF ACTIVE CHEST DISEASE. CLINICAL HISTORY: Chest pain. COMPARISON: 03/13/2023. COMMENT: AP portable. The heart is normal in size. The mediastinum is unremarkable. The lungs appear clear. No infiltration nor pleural effusion is evident. No significant change is noted when compared to the prior exam. Ordering Provider: Ernie Veras FINAL REPORT Dictated: 10/09/2023 11:56 am Marlon Carter M.D. Signed (Electronic Signature): 10/09/2023 11:56 am Signed by: Marlon Carter M.D. Transcribed by: GEOVANNY Technologist: MICHELLE Technical Comments Radiation Dose: Ka,r in mGy = na DAP = na Normal [facility] eGFRon 10-09-2023 GFR/1.73 sq M.predicted among non-blacks MDRD (S/P/Bld) [Vol rate/Area] 83 mL/min/1.73 m2 Normal >=59 [facility] Comment on above: Order Comment: Order added by Discern Expert. Result Comment: Director Of Global Marketing cade kidney disease could be indicated at eGFR's of less than 60 mL/min/1.73m2. Kidney failure is indicated at less than 15 mL/min/1.73m2. Performed By: #### 2 [id number], [id number], [id number], 6804603, 1314326, [id number] ####[facility] [address] [place] [address] C Urineon 05-11-2023 Bacteria identified Cx Nom (U) Microbiology PROCEDURE: Urine Culture [R1] SOURCE: U CleanCatch BODY SITE: COLLECTED DATE/TIME: 05/08/2023 10:43 EDT RECEIVED DATE/TIME: 05/08/2023 13:49 EDT START DATE/TIME: 05/08/2023 13:49 EDT FREE TEXT SOURCE: Mo ALVAREZ, Maia Hassan MD, Maia Shahid FINAL REPORTS Final Report [] Verified Date/Time: 05/11/2023 15:07 EDT <10,000 cfu/ml Mixed skin contaminants Performing Locations R1: This test was performed at: [facility], [address] [address], [address]- , , [facility] Comment on above: Performed By: #### 2 [id number] ####[facility] [address] [place] [address] Consent for Procedure/Surger yon 05-08-2023 Consent for Procedure/Surgery [id number]# 1.00CD:127 Normal [facility] Consent for Treatmenton 04-27 Consent for Treatment [id number]#1 .00CD:127 Normal [facility] Inpatient Patient Summaryon 05-08-2023 Inpatient Patient Summary [place] [id number] Clinical Summary Person Information Name: CLARICE DICKINSON Age: 63 Years : 1960 Sex: Female PCP: Tash Recio MD Marital Status: Phone: [phone] Race: White Ethnicity: Non- or Language: Sudanese Visit Id: Visit Reason: URETHERAL LESION, RECURRENT UTI Speciality: Acuity: Enc Type: Outpatient Med Service: Surgery Arrival: 05/08/2023 08:19:21 Discharge: Dispo Type: Address: [address] [place] [phone] Provider Notes: Diagnosis: Female stress incontinence; Urethral lesion; Urgency of urination Problems Active Long-term current use of opiate analgesic drug (05/12/2022) Overactive bladder due to prolapse of female genital organ Obesity, Class III, BMI 40-49.9 (morbid obesity) Smoking Status: Functional Status: Sensory Deficits: History of Falls: Mobility Assistance Prior to Admission: ADLs: Current Level of Assistance for Self-Care/Mobility: Cognitive Status: Allergies No Known Medication Allergies Laboratory or Other Results This Visit (last charted value for your 05/08/2023 visit) No Laboratory or Other Results This Visit Measurements: Height: 154.9 cm Weight: Blood Pressure: Not Valued / Not Valued BMI: Procedures No Procedures Documented Immunizations No Immunizations Documented This Visit Final Med List: acetaminophen 500 Milligram By Mouth as needed as needed for pain. ascorbic acid (Matidle-C 1000 mg oral tablet) 1 Tablets By Mouth every day. aspirin (aspirin 81 mg Oral EC Tab) 1 Tablets By Mouth every day. estradiol topical (Estrace 0.1 mg/g Cream) 1 Gram Topical Monday. apply pea size amount around urethra opening 2x per week. Refills: 3. multivitamin (Multi Vitamin+) 1 tab By Mouth every day. Non-Formulary Medication (Misc Medication) calcium/magnesium/zin c by mouth daily. Care Team Members: Attending Physician: Maia Hassan MD Consulting Physician: Referring Physician: Maia Hassan MD Follow up: With: Address: When: Maia Hassan [address], [facility] [address] [place] [phone] Business (1) Comments: Office to schedule follow up in 3 months Patient Education Information: EU - Cystoscopy Discharge Instructions (CUSTOM) [facility] IntraOperative Documentson 0 05-08-2023 IntraOperative Documents [id number]# 1.00CD:127 [facility] Main OR Intraoperative Recor don 05-08-2023 Main OR Intraoperative Record IntraOp Document Type FTURO Summary Primary Physician: Maia Hassan MD Finalized Date/Time: 05/08/23 09:34:50 Pt. Name: CLARICE DICKINSON D.O.B./Sex: 1960 Female Med Rec #: [id number] Physician: Maia Hassan MD Financial #: [id number] Pt. Type: O Room/Bed: / Admit/Disch: 05/08/23 08:19:21 - Institution: Case Times FTURO Entry 1 Patient Times In Room 05/08/23 09:06:00 Out Room 05/08/23 09:36:00 Procedure Times Start 05/08/23 09:21:00 Stop 05/08/23 09:31:00 Anesthesia Times Last Modified By: Yamini ARAYA, Trice ESCAMILLA 05/08/23 09:29:33 Case Attendance FTURO Entry 1 Entry 2 Entry 3 Case Attendee Maia Hassan MD RN, SEJALOR, Josefa Cramer CST Role Performed Surgeon - Primary Manager Culture - Primary Scrub - Primary Time In 05/08/23 09:06:00 05/08/23 09:06:00 05/08/23 09:06:00 Time Out 05/08/23 09:36:00 05/08/23 09:36:00 05/08/23 09:36:00 Procedure CYSTOSCOPY LOCAL(.) CYSTOSCOPY LOCAL(.) CYSTOSCOPY LOCAL(.) Comments Last Modified By: Yamini ARAYA, CNOR, Yamini ARAYA, SEJALOR, Yamini ARAYA, SEJALOR, Trice 05/08/23 Trice 05/08/23 Trice 05/08/23 09:29:34 09:29:34 09:29:34 Surgical Procedures FTURO Entry 1 Procedure Description Procedure CYSTOSCOPY LOCAL Modifiers . Surgeon Description cysto Primary Procedure Yes Primary Surgeon Maia Hassan MD Start 05/08/23 09:21:00 Stop 05/08/23 09:31:00 Anesthesia Type Local Surgical Service Urology Wound Class 2 - Clean-Contaminated Last Modified By: SEJAL Kc RNOR, Trice 05/08/23 09:29:36 General Case Data FTURO Pre-Care Text: Classifies surgical wound, implements aseptic technique, initiates traffic control Entry 1 Case Information OR URO 1 FT Case Level None Wound Class 2 - Clean-Contaminated Specialty Urology Preop Diagnosis URETHERAL LESION, Postop Same As Preop No RECURRENT UTI Postop Diagnosis URETHERAL LESION, Outcomes Met? Yes Last Modified By: Yamini ARAYA, SEJALOR, Trice 05/08/23 09:27:49 Post-Care Text: The patient is free from signs and symptoms of infection EU IntraOp - FTURO Pre-Care Text: Implements protective measures prior to operative or invasive procedure, confirms identity before the operative or invasive procedure, verifies operative procedure, surgical site, and laterality Entry 1 EU Perioperative Protocols Procedure(s) CYSTOSCOPY LOCAL(.) Patient Identity Birthday, ID Band Verified (select at Check, Patient least 2): Participation Consents / H and P HandP, Surgery/Procedure Operative Site N/A Verified Consent Marking Verified Surgical Site Yes Laterality Verified n/a Verified Procedure Verified Yes Correct Patient Yes Position Verified Availability Equipment, Medication Time Out Maia Hassan MD, Verified (If Participants Yamini ARAYA, CNOR, Applicable) Bela Carnes CST, Kimberly A Time Out Complete 05/08/23 09:19:00 Allergies Reviewed? Yes Allergies Reviewed Self/Patient With Body Position Frog Legged Prep Area perineal area Prep Agents Betadine Solution Skin. Condition Unable to Visualize Additional Other (See Comment) Specimens Comment urine culture Specimens Collected Vitals - EU Blood Pressure 167/102 Pulse 89 bpm Respirations 16 br/min SPO2 EBL 0 IandO - EU Total Intake 0 mL Total Output 0 mL Outcomes Met? Yes Last Modified By: FRANCINE Kc RN, Ruthann 05/08/23 09:25:49 Post-Care Text: The patient is free from signs and symptoms of injury caused by extraneous objects Sign Out FTURO Entry 1 Before Patient Leaves OR Nurse verbally Yes Nurse verbally n/a confirms with the confirms with the team the name of team that the procedure(s) instrument, sponge, recorded and needle counts are correct (or N/A) Nurse verbally Yes Nurse verbally n/a confirms with the confirms with the team how the team whether there specimen is labeled are any equipment (including patient problems to be name), if applicable addressed Sign Out Complete 05/08/23 09:33:00 Last Modified By: FRANCINE Kc RN, Ruthann 05/08/23 09:29:49 Case Comments Finalized By: FRANCINE Kc RN, Ruthann Document Signatures Signed By: FRANCINE Kc RN, Ruthann 05/08/23 09:29 FRANCINE Kc RN, Ruthann 05/08/23 09:34 Normal [facility] Main OR Preoperative Recordo n 05-08-2023 Main OR Preoperative Record Holding Area Document Type FTURO Summary Primary Physician: Maia Hassan MD Finalized Date/Time: 05/08/23 08:33:49 Pt. Name: CLARICE DICKINSON/Sex: 1960 Female Med Rec #: [id number] Physician: Maia Hassan MD Financial #: [id number] Pt. Type: O Room/Bed: / Admit/Disch: 05/08/23 08:19:21 - Institution: Case Times Holding FTURO Pre-Care Text: Verifies consent for planned procedure, identifies individual values and wishes concerning care, includes family members in perioperative teaching Secures patient's records' belongings, and valuables, maintains patient's dignity and privacy, and maintains patient confidentiality Entry 1 In Holding 05/08/23 08:24:00 Outcomes Met? Yes Last Modified By: Josefa Mckeon RN 05/08/23 08:26:14 Post-Care Text: The patient participates in decisions affecting his or her perioperative plan of care The patient's right to privacy is maintained Surgery Checklist FTURO Entry 1 Patient Birthday, ID Band Procedure History and Physical, Identification: Check, Patient Verification: Surgical Consent, With Participation Patient NPO after Midnight: n/a Personal Items: Glasses, Jewelry Personal Items GLASSES; RINGS 3; Limitations: UP AD VADIM Comment: BRACELETS X 6; EARRINGS X 1 [place] Complaints of Pain: Yes Pain Comment: 12/06 - LOWER LEFT QUAD (ABDOMEN) Skin Integrity Dry, Warm Vitals - EU Blood Pressure 165/102 Pulse 89 bpm Respirations 16 br/min SPO2 98 % Additional None RN Reviewed Yes Specimens Collected Last Modified By: Josefa Mckeon RN 05/08/23 08:33:46 Finalized By: Josefa Mckeon RN Document Signatures Signed By: Josefa Mckeon RN 05/08/23 08:29 Josefa Mckeon RN 05/08/23 08:33 Normal [facility] Operative Reporton Operative Report Patient: CLARICE DICKINSON Age: 63 years Sex: Female : 1960 Associated Diagnoses: None Author: Maia Hassan MD Procedure Operative Information Details: Date/ Time: 05/08/2023 11:15:00. Pre-Op Dx: Urethral lesion (KAD53-CK N36.9, Discharge, Medical). Post-Op Dx: Same. Anesthesia Type: Local. Procedure: Local Cystoscopy. Complications: None. Risks/Benefits/Inform ed Consent: Surgical risks, benefits, details of the procedure have been explained to the patient, Full informed consent has been obtained. Intraoperative Information Prepped: Patient is brought back to the endoscopy suite, Patient is placed in supine position, Patient prepped in the usual fashion with Betadine solution, 2% Xylocaine Jelly is placed per Urethra, After waiting several minutes the Cystoscope is introduced. The Urethra is: Similar 5 mm yellow submucosal mass at 12-1 o'clock postion on anterior bladder neck, stable appearing, non tender.. The Bladder is: Normal, Trabeculated None (0), No bladder tumors, lesions, stones or foreign bodies.. The ureteral orifices: Show efflux of clear urine. Devices Implanted: None. Removal: Cystoscope is removed, The patient tolerated it well. Vaginal examination: Vaginal mucosa: There is moderate vaginal atrophy The urethra is patent, orthotopic. There are no masses or lesions. There is mild urethral hypermobility and ELEAZAR is seen. She is able to correctly identify her pelvic muscles after coaching, weak recruitment. No signficant anterior/posterior prolapse. Mild stage 1-2 anterior with valsalva. . Postoperative Information Discharge: Follow up arranged. Stable submucosal urethral lesion. Follow up in 3 months to see if urgency symptoms and UTIs lessen after restarting estrace cream. If not, will discuss proceeding with transurethral resection of urethral lesion under anesthesia. . Normal [facility] Comment on above: Result Comment: Elec tronically Signed By: Maia Hassan MD.\.br\Date and Time Signed: 05/08/23 11:19 EDT Outpatient Surgery Discharge Instructionon 05-08-2023 Outpatient Surgery Discharge Instruction [id number]# 1.00CD:127 Normal [facility] Outpatient Surgery Discharge Instruction [place] [id number] Patient Discharge Instructions PERSON INFORMATION Name: CLARICE DICKINSON Date of : 1960 Current Date: 05/08/2023 09:33:48 PHYSICIANS Admitting Physician: Maia Hassan MD Comment: Discharge Diagnosis: Female stress incontinence; Urethral lesion; Urgency of urination CLARICE DICKINSON has been given the following list of follow-up instructions, prescriptions, and patient education materials: IF UNABLE TO CONTACT YOUR PHYSICIAN AND YOU FEEL IT IS AN EMERGENCY, GO TO THE NEAREST EMERGENCY ROOM OR CALL 911 Follow up: With: Address: When: Maia Hassan [address] [place], [place] [phone] Business (1) Comments: Office to schedule follow up in 3 months Comment: PATIENT EDUCATION INFORMATION Instructions: Cystoscopy ? Voiding after the procedure: there may be some pain, burning, urgency, frequency and blood tinged urine following the procedure. These symptoms usually resolve within 2-5 days. Drink the amount of fluid it takes to keep the urine pink to yellow or clear in color. Drinking enough water and fluids will help to ease any discomfort after your procedure. ? If you are having problems that seem out of the ordinary, please call. ? If unable to contact your physician and you feel it is an emergency, go to the nearest emergency room or call 911 ? Diet ? you may resume your normal diet. ? Activity ? you may resume your normal activities ? Call if you have a fever over 100 degrees. ALOK Adams ANNE M, have received the attached patient education materials/instruction s and have verbalized understanding: May we do a follow up call? Yes No I was present when discharge instructions were given Patient Signature Date Clinican/Nurse Signature Date You may receive a survey from Jaelyn Marcial asking you to rate your care experience. Your feedback is important and will help us understand what we do well and how we can improve the quality of care we provide to you, your loved ones and our community. It?s an honor to serve you. Thank you for choosing [facility] Normal [facility] Progress Note-Physicianon Progress Note-Physician Patient: CLARICE DICKINSON Age: 63 years Sex: Female : 1960 Associated Diagnoses: None Author: Maia Hassan MD Health Status Allergies: Allergic Reactions (Selected) No Known Medication Allergies, Allergies (1) Active Reaction No Known Medication Allergies None Documented Current medications: (Selected) Prescriptions Prescribed Estrace 0.1 mg/g Cream: 1 gm, Topical, MonWedFri, 42.5 gm, Refill(s) 3, apply pea size amount around urethra opening 2x per week, [facility], 154.9, cm, 05/08/23 8:33:00 EDT, Height/Length Dosing, 92, kg, 03/14/23 8:58:00 EDT, Weight Dosing Documented Medications Documented Matilde-C 1000 mg oral tablet: 1,000 mg = 1 tab(s), Oral, Daily, Prophylaxis Misc Medication: See Instructions, calcium/magnesium/zin c by mouth daily Multi Vitamin+: 1 tab, Oral, Daily, Refill(s) 0, Prophylaxis acetaminophen: 500 mg, Oral, PRN as needed for pain, Refills(s) 0 aspirin 81 mg Oral EC Tab: 81 mg = 1 tab(s), Oral, Daily, # 30 tab(s), Refills(s) 0 Impression and Plan Assessment and Plan: Diagnosis: Female stress incontinence (RKI49-IR N39.3, Discharge, Medical), History of recurrent UTIs (NDR36-RI Z87.440, Working, Medical), Urethral lesion (JLO45-AK N36.9, Discharge, Medical), Urgency of urination (JIC00-PT R39.15, Discharge, Medical), Vaginal atrophy (KIC43-RP N95.2, Working, Medical). Patient presented today for follow up of urethral lesion, urinary urgency and history of recurrent UTIs. Due to patient?s recent UTI and slight worsening of urgency symptoms, I will continue topical Estrace cream and order urine culture. She has not been using Estrace cream consistently of late. Pt to restart 2 times per week. Risks/ benefits discussed. Refill sent today to pharmacy on file. 1) Urethral lesion Discussed stable appearance of submucosal urethral lesion suspicious for lipoma or cyst. Prior urine cytology 02/05/22: atypical, favor reactive; FISH negative. However, discussed how we cannot rule out malignancy without pathology. Patient with several stressors in life currently. We will continue monitoring for hematuria and worsening urinary symptoms. Discussed importance of compliance of medical therapy and follow up. -Follow up in 3 months. Will discuss proceeding with transurethral resection of urethral tumor under anesthesia at that time. Risks/benefits of procedure discussed with patient. 2) Urinary urgency, Vaginal atrophy -Worsening urgency today. -Patient will restart Estrace cream, timed voiding, pelvic floor therapy at home and follow-up in 3 months. 3) History of UTI -Self treated with Cipro 2 days ago. Had UTI 1 month ago that was treated with Cipro by PCP. Otherwise, no UTIs since last seen -We will send urine today for culture and call in antibiotic based on sensitivities. -TUR urethral lesion if UTIs continue Normal [facility] Comment on above: Result Comment: Elec tronically Signed By: Mo ALVAREZ, Maia Shahid\.br\Date and Time Signed: 05/08/23 11:28 EDT Consent for Treatmenton 06 Consent for Treatment [id number]# 1.00CD:127 Normal [facility] Consultation Noteon 05-05-20 Consultation Note Patient: CLARICE DICKINSON Age: 63 years Sex: Female : 1960 Associated Diagnoses: None Author: Sherin Durand PA-C Subjective Chief complaint Lower back pain. Leg pain- resolved. Patient is a 63-year-old female. She has a past medical history significant for a [facility] claim. The approved diagnosis code- S35.5XXA?sprain of ligaments of the lumbar spine. She underwent recent repeat bilateral L4?5 transforaminal epidural steroid injection. This was done on 03/22/2023. And she has obtained 100% relief. She states that this injection was very uncomfortable for her. She had a lot of tenseness and anxiety during the procedure. Patient states that she had a lot of discomfort for a few days after but this then resolved. About a week after she obtained 100% relief and she still has 100% relief at this time. At this time she is overall very happy. She states that she can walk and stand without problem. She is able to do the things she wants to do. Health Status Allergies: Allergic Reactions (Selected) No Known Medication Allergies, Allergies (1) Active Reaction No Known Medication Allergies None Documented Current medications: (Selected) Prescriptions Prescribed Estrace 0.1 mg/g Cream: 1 gm, Topical, MonWedFri, 42.5 gm, Refill(s) 3, apply pea size amount around urethra opening 3x per week, [facility], 154.9, cm, 08/05/21 8:44:00 EDT, Height/Length Dosing, 104.2, kg, 08/05/21 8:44:00 EDT, Weight Dosing Documented Medications Documented Advil: 200 mg, Oral, q6hr, PRN as needed for pain, Refills(s) 0, Pain Matilde-C 1000 mg oral tablet: 1,000 mg = 1 tab(s), Oral, Daily, Prophylaxis Misc Medication: See Instructions, K-2 BY MOUTH DAILY Misc Medication: See Instructions, calcium/magnesium/zin c by mouth daily Multi Vitamin+: 1 tab, Oral, Daily, Refill(s) 0, Prophylaxis Vitamin D3 1000 intl units oral capsule: 25 mcg = 1 cap(s), Oral, Daily, takes 6 days a week, Prophylaxis acetaminophen: 500 mg, Oral, PRN as needed for pain, Refills(s) 0 aspirin 81 mg Oral EC Tab: 81 mg = 1 tab(s), Oral, Daily, # 30 tab(s), Refills(s) 0 Problem list: All Problems Lower back pain / SNOMED CT 384925474 / Confirmed Obesity, Class III, BMI 40-49.9 (morbid obesity) / SNOMED CT 426305067 / Confirmed Overactive bladder due to prolapse of female genital organ / SNOMED CT 0225102973 / Confirmed Long-term current use of opiate analgesic drug / SNOMED CT 731127664683502 / Confirmed Added secondary to current Opioid Treatment Agreement Resolved: Recurrent UTI / SNOMED CT 883739995 Resolved: Suprapubic pain / SNOMED CT 477900898 Resolved: Urethral lesion / SNOMED CT 1751275 Resolved: Inguinal pain / SNOMED CT 863235098 Objective VS/Measurements BP: 141/84, BMI 39.6, respirations: 12 General: Alert and oriented, No acute distress. Overweight Eye: Normal conjunctiva. HENT: Normocephalic, Normal hearing. Cardiovascular: No edema. Musculoskeletal Normal range of motion. Normal strength. Integumentary: Warm, Dry, [place]. Injection site well-healed Neurologic: Alert, Oriented. Psychiatric: Cooperative, Appropriate mood & affect. Impression and Plan Patient is a 63-year-old female. She has a past medical history significant for a [facility] claim. The approved diagnosis code- S35.5XXA?sprain of ligaments of the lumbar spine. She underwent recent repeat bilateral L4?5 transforaminal epidural steroid injection. This was done on 03/22/2023. And she has obtained 100% relief. At this time, she is doing well. She is comfortable and happy. She is able to walk and stand without problem. She is overall very pleased with how much relief she has obtained. At this time, she is going to follow-up in 3 months for reevaluation. Call the clinic sooner if necessary. She will call should she require anything from our services. CAROLYN score: 2% Normal [facility] Comment on above: Result Comment: Elec tronically Signed By: Sherin Durand PA-C\.br\Date and Time Signed: 05/05/23 07:51 EDT\.br\Electronically Co-Signed By: Denny Barber MD\.br\Date and Time Co-Signed: 05/07/23 08:50 EDT Office/Clinic Note-Physician on 05-05-2023 Office/Clinic Note-Physician [id number]#1 .00CD:127 Normal [facility] Office/Clinic Note-Physician [id number]#1 .00CD:127 Normal [facility] Patient Correspondenceon Patient Correspondence [id number]#1 .00CD:127 Normal [facility] Patient Correspondence [id number]#1 .00CD:127 [facility] Patient History Officeon Patient History Office [id number]#1 .00CD:127 [facility] Pre-Certification Formon Pre-Certification Form [id number]# 1.00CD:127 [facility] Coding Summary.on 03-24-2023 Coding Summary. CD:[id number] W w+PGhlYWQ+MF1QDROjE45 ajQEqmF8oF2TKQHxWTjmr QERDVPsAFnBajfBhPK4jl XNjZXJu IC8+JU3gPOEyKqjojVFff 3G4uBO9X59xnw3yPJfpkP L7RXAeOlYnpykhu6xkqHy 6IDcuNmluOyBt RKBseR26SKL9wY38Jj26n LFcwXNnd1kzwIy1OoTtNX RaNQF2pIfaVDkda0UrZSR mB98tkWJpt9O8 XLWqmYqqeJUvFnDomFK6b D9wGMaklimnd4orffyqIv y0ce39bVLru5V5zCP3P1E lcuG3XNUcbREp LbwhqRPMlT3iyucwh9hcv ytsMyHsSINvIAn2EJx5SS HtnRibSrEbKU09PIZ7TPA aniPuQ9NtFUXj yHjsJjC5a9C7Rq8TJ9WEB yobY2ORNSFIBKpczWJ+PC 06nu88X9SgBzbbCzf9HGG zRBO1pLS9tF4z CKQaZAgku9C4hCZ9V6Via qQzdx3kk2ggOHZyLJzqH4 8chHVdt2D3XIPfzTM4XPF bhZlsNnMtjB39 Oyc+FREimShzd9UjKchiu 0epo3wdfBx2JnfvWBLxzu YjoSaxCTM3i6DoPe4zTOX idXI6cCF4tB0o WsBnFcZ1ACbaP704EfHjm QSqEiufV17aX7CuvMO+PH BtBog2TSOsuZcrQK0lV9Z hZGRpbmctbGVm fPskEK3dGGZpikryDDBod M1kAYZxF8y6SwRyTiX7MD pbG4BrXADcathsFk41hQ3 tFsGwUlO3MTch J3JkhnO2XMBctGPaVChrD UF7A33ew8K9FWNoAKWdOB N3rDO6kS8txHqckhsdkHC mdDsgdmVydGlj TLrdAZerT995OYUrnAwrB kNvZGluZyBEYXRlOiAgMD QvMjgvMjAyMzwvdGQ+PHR gHGR6rVrdJOGa wLDgOZtdDh4sgEycbIvbJ B8aANMvfapxKUYpuK3wQH NtqRGziOhkZS7gMURewko im780AjUeLDA2 LCTpdUXsR5CyxO7uDnNpP WJhQTYiS9RdzLExMQnmJ6 91ZJpsJsC9FPCepnTwV6Z sLWFsaWduOiB0 o3M1Cw3Rh9EydcklH6Hwk BHvGaWcAbtoMDc0W5YaOz wvdHI+YN43FJYgZH35VBn 7VJW5pLsoRDup BLGkM3LfcK6zOfLrIMPiH GRkOyc+PHRhYmxlIHdpZH RoPScxMDAlJyBzdHlsZT0 iLq3mAUVvZJYi zQonwJUhRqSit0vrAQKiV ZsjBN2guDgbG9SczXP2RO Ehf2z2Vd41P40lW2QwvMI +QDYiqFR7jCS5 bO4pVnAnGbG5KTyaS393R rZpgWIwDmowz8kfw3oqlL a6YyA4MTStemEjeWhlPDW 6e9WdCp33U94w IHdpZHRoPSIxNSUiIHZhb Bqbyg0qeS6mLb5+PGNvbC F2bBD3wZ9pSkUzGsJ8WQe jE673IqPhbGYc Jcsfb7gfg4czcGe2UpAiO ZIzbkMyyVcaXTP3n6KbIr 31U9CnjCehj9VsApu0kj8 1kONwm1A3uUW8 E1YjLUVeaxllzQMqxXnrF J3dWKAgopikUWZtmL0nOV WbZ4p4HmSgPmQ2GZbuQ5J ajeJ2GDBtsNDe MDQvrVFGuB6lyqmax6dcx cniFwNsAZKnNMk3LAo4ZL MezVpqFnPhUYO5CpP0TLY 2xQPqoD1imIve gvialE3nJvc+UVH6lOEem OZRNI8uDugerHL+PHRkIH X4jFjhNMcoJCJanW5aVRA tS9y6RyTaRrK8 BJraR4KgwdD2KNZraVHfV SAwoMISbB7xoebcg4rwdp jpNnYyBRYqNVu4HGz9AZB saWduOiBsZWZ0 RuP8AKF9yYQjfR1ppUyay ttpjV9xHqq+QmlydGggRG Q0JOe3H3QmOdj3RQLmsHx sFG8qlRSrDQoy Xu8cvYzavWpzRO9iUGCrj fssm645DmSoq5ebWIAruP BwOJcmZZH7I96ie1G0ZVZ oUFUuKKM9jTD5 eA8tpLcmockefJGyzPkku vWjmFwqALvqCXtaO909GL IsaJotXhSyWVz7S9WuZvj 1HQKziLzyGB5m cJHaWMvzYe0rpMcxoFlqV L6tLKVdjuscf118JpQez0 ojVPUxmBDiZCjrQZX2K11 ui9P5VPLrKFAb KPC5eED0wD4taZdqixfbb GVmdDsgdmVydGljYWwtYW tdP279YPPmcZipKbZmuIh 6G3EpAng8OSXa bXkzOZ7bvEWbOYzvRv6df ZojeFtvOC3eBIQnrzlon5 79WnRcr4wsRSNqoZOwGTc lBAO6O08lo9D4 IWVeSFJkZLY8gOY3xN3rs GlnbjogbGVmdDsgdmVydG caNGudOZsdL778VAIaxDl nPlBhdGllbnQg OZmrGEm3V3DaGyuypJL+P G25HVJaBM51aIYaxOMmo2 cbaAy2CzRjWJPkTPR7vEh bECgau0IbSIBm D01yvSMge7O3TLAaoBcyd JMkStBrnYB4xE4uZYydaj tdc5asbkjgRrwwt8dbjf2 6lS54P94eBRyl ZHRoPSIzMCUiIHZhbGlnb m3sdI8xGh9+FNZmmNK3iQ U3kL5qKXEtMfN2SHgqF45 9InRvcCIvPjxj d8qrf8yqbOb7TpO5TFQyz tXxpLyoHOS9u9SlPq20G8 9sIHdpZHRoPSIyMCUiIHZ enTerax0xdK9p Ii8+XMBlfVO2dMG9lH7wL wBwTzY5GRewS932JoJxkF UnNytjZ00pF8OjySZ+PHR fOrm3WDPguYyp GZ7syDTcTIsgUv7jLAK4Y gVxIyAzZIctO6XqSFPvbe khneybxGB3VAThHXVmlU0 6Xq2lvLebUWAw gMLCoX5bdfdso3aooguqC eOdYDCbJWs0IIa5JJYxvW kdEwUmQAA6ZeY9ZJG0jNC mdV9lpZfflhhy xO0bN8RnSDKuewfsJh71p S8sRfCzXtV5RDsaAga+Ql FTM9pTFgLjICCTPuUzKYl vdGQ+PHRkIHN0 rGqsECydNWXfwE3xSBAvU 1c6KyEhBfC0QFpjZ8GvMG VvwqzjBr66nT5dGlPtCnG 8IFueH2XarqG5 RNNveKAgOQymXTV8H52rs 8E8KKYrCDXfZQH5eGR1xX 1hbGlnbjogbGVmdDsgdmV ydGljYWwtYWxp Z436FHBdnFsnLsU6FbX3M oX0EpJ3F3AfUcz8KIEkaF swXH1bjNMlAXvoHb8anMn glDdqGO1uHRQr kedvBRNxqN5lILVnlKUdb LhmRV7hHMEkaluei354Zm ZcRBM9OBCnoERtW6RwnK1 yOiAjMDAwMDAw J9OnaJWvEBhnI093TPbwD gL7ACOmznKdY5GmUCEbjQ lbEzX4e6N2Wh90OjXCSQE yczwvdGQ+PHRk NZG6uTxrGFgdNNPbrY8sZ GHlD2d5FsHbLhM5GCycY2 NpGOQsfeyzYf01aT5bFoT bDmE0GBuvV3Vw vcG5AKMbyMFkTPreLBI9F 72pf4W8MZNqNZQpMCJ9sL I6cS0kyEqvzhbofDPgwWf gdmVydGljYWwt MWhrC689WPJlqKzeSpAju WFsZTwvdGQ+PNZcOCI7eD djKCamWEAxbN6fPRMeS8t 7KlGxMaB1XIuj Z8ElOXPscctjNl29mB1bR oRxXqT3MOgrN6RjjjM4NF XsbMUgECtsKDX6L10cc1J 1LGZbYMDgXKB7 nPD0cA2adKhdjnpuqXPkq DsgdmVydGljYWwtYWxpZ2 36JOSygNosWpNiyX6bZCI uYWdlbWVudDwv dGQ+DO14xg53A3BvCqvuY ix5BFKzSCG4qVJ6tI6cVU ZiRNbbx6G0hAD3J4IidiR pdq9vz0ewJMJj QZgpU18uxMHty0K9VMKnd VA3USEeyBphVpFalL53Fu c+SUOuxLuup3IcSyqrs3i vq7mqnFj5NcLf WKGtkbUgbDryMPC1f8TpT t80S90gWWltGZPcMDRwNN KwCAFqtZhcju6wyS7wQq4 +JQZbvDX6iEE5 eQ6hNiQnHzY0MGdsT628G zWaqINlJfboc7czb3rteI t6EzIvIAJefaPhiPumVBA 3g3NbEe24J1Ot bLbgj1YmUtq3mr73xXLuw 4W1pMN1N1OlWUSrviqtoE HjzJtxQM3vLVEhhmnhEXT gaU0qGDXlS0b9 ZuMlMnQ8EXvcX0WjwvM1K CKmvITnDFKsrQDDpZ7dxn vom9szhzblKnOsLCBqAPd 3SKa6DFZzrXat OeFiMBN8GiI7CQR9hQTzx H3zyPordfuyyC9tCfb+UG o7y4pwuXCmHK7mwBU2JW9 5VK67kZQgs9V0 fBQ6Y2UaRPLfxzddlygit AS1UJEzMTBupO35Yy4upI bxJt4xSFLbUSK3FCXjoUF oQ5EwwY3bXtBr HIWuKJDhT5LbkLXtOVutO 926TSibWaO5AKTxosRpX5 GbNYJuyRqjIcP4w0L0Wl4 IHC21SY03IH58 fYLvn1B3mKF8S7OmTGZbh uwtcqzifAU2NKEePDIqwI 15Zy1wjXyvNt8dCMUrKTJ 8QYZixSPnR7Ri wI5wTjZhRIQsMORxI5Hfn EIhMHnzI260IYvkHwH2GJ ZdlaZfU2XoOJDuhReoWuL 5h1M3Ni6MVx38 CE25TT76bPJxw8N1tAA5O 3LjQMFxlqtunxaewJQ6YD QuEPCouX36Vz6ylFzpIt5 qUNPeLAS4GOYm zRHkW2RdfD7fOwGsYZUcK CXhU3IweUTjFKiuR494AA niHtA8JZYiunAgH3PnCAP fgPcsUfR4n2L0 Xr5IAXjbpwv2J4XqTqzwf HI+BK54PFZpNY05uTFgkI Jdb9izeRf4QwAcDYVyIKL 1hBouHUxhs4Xb ZKAcF85e (more content not included)... Normal [facility] Consent for Procedure/Surger yon 03-22-2023 Consent for Procedure/Surgery [id number]#1. 00CD:127 [facility] Consent for Treatmenton 02-26 Consent for Treatment [id number]#1 .00CD:127 [facility] Discharge Instructionson Discharge Instructions [id number]#1. 00CD:127 [facility] IntraOperative Documentson 0 03-22-2023 IntraOperative Documents [id number]#1. 00CD:127 [facility] Main OR Intraoperative Recor don 03-22-2023 Main OR Intraoperative Record IntraOp Document Type FTPM Summary Primary Physician: Denny Barber MD Finalized Date/Time: 03/22/23 08:09:36 Pt. Name: CLARICE DICKINSON D.O.B./Sex: 1960 Female Med Rec #: [id number] Physician: Denny Barber MD Financial #: [id number] Pt. Type: P Room/Bed: / Admit/Disch: 03/22/23 06:57:25 - Institution: Case Times FTPM Entry 1 Patient Times In Room 03/22/23 07:59:00 Out Room 03/22/23 08:08:00 Procedure Times Start 03/22/23 08:02:00 Stop 03/22/23 08:07:00 Anesthesia Times Last Modified By: Sharri Wilson RN 03/22/23 08:09:24 Case Attendance FTPM Entry 1 Entry 2 Entry 3 Case Attendee Sunil ALVAREZ, Denny Fuentes RN, Sharri Tate RN Role Performed Surgeon - Primary Scrub - Primary Manager Culture - Primary Time In 03/22/23 07:59:00 03/22/23 07:59:00 03/22/23 07:59:00 Time Out 03/22/23 08:08:00 03/22/23 08:08:00 03/22/23 08:08:00 Procedure TRANSFORAMINAL EPIDURAL TRANSFORAMINAL EPIDURAL TRANSFORAMINAL EPIDURAL STEROID STEROID STEROID INJECTIO(Bilateral) INJECTIO(Bilateral) INJECTIO(Bilateral) Comments Last Modified By: Sharri Wilson RN 03/22/23 Sharri Wilson RN 03/22/23 Sharri Wilson RN 03/22/23 08:09:24 08:09:24 08:09:24 Entry 4 Case Attendee Kavitha Villalta Role Performed Speech Communication Instructor Time In 03/22/23 07:59:00 Time Out 03/22/23 08:08:00 Procedure TRANSFORAMINAL EPIDURAL STEROID INJECTIO(Bilateral) Comments Last Modified By: Sharri Wilson RN 03/22/23 08:09:24 Perioperative Protocols FTPM Pre-Care Text: Implements protective measures prior to operative or invasive procedure, confirms identity before the operative or invasive procedure, verifies operative procedure, surgical site, and laterality Entry 1 Procedure(s) TRANSFORAMINAL EPIDURAL Patient Identity Birthday, ID Band STEROID Verified (select at Check, Patient INJECTIO(Bilateral) least 2): Participation Consents / H and P HandP, Surgery/Procedure Operative Site Present Verified Consent Marking Verified Surgical Site Yes Laterality Verified Yes Verified Procedure Verified Yes Correct Patient Yes Position Verified Availability Equipment, Medication, Prep Dry Yes Verified (If X-ray Applicable) PreOp Antibiotic No Time Out Sharri Wilson RN, Smith Given Participants RN, Sunil Castillo MD, Ambar Baldwin Amy Time Out Complete 03/22/23 08:00:00 Outcomes Met? Yes Last Modified By: Sharri Wilson RN 03/22/23 08:00:12 Post-Care Text: The patient is free from signs and symptoms of injury caused by extraneous objects Allergy Information FTPM Pre-Care Text: Verifies allergies Entry 1 Allergies Reviewed? Yes Allergies Reviewed Self/Patient With Outcomes Met? Yes Last Modified By: Sharri Wilson RN 03/22/23 07:21:18 Post-Care Text: The patient received appropriate medication(s) safely administered during the perioperative period Surgical Procedures FTPM Entry 1 Procedure Description Procedure TRANSFORAMINAL EPIDURAL Modifiers Bilateral STEROID INJECTION Surgeon Description L4 TFESI Primary Procedure Yes Primary Surgeon Sunil ALVAREZ, Denny Start 03/22/23 08:02:00 Stop 03/22/23 08:07:00 Anesthesia Type None Surgical Service Pain Management Wound Class 1 - Clean Last Modified By: Sharri Wilson RN 03/22/23 08:09:26 General Case Data FTPM Pre-Care Text: Classifies surgical wound, implements aseptic technique, initiates traffic control Entry 1 Case Information OR Pain Proc Room Case Level Level 2 Wound Class 1 - Clean Specialty Pain Management Preop Diagnosis S33.5XXA Postop Same As Preop Yes Postop Diagnosis S33.5XXA Outcomes Met? Yes Last Modified By: Sharri Wilson RN 03/22/23 07:21:30 Post-Care Text: The patient is free from signs and symptoms of infection Skin Assessment (Pre Procedure) FTPM Pre-Care Text: Implements protective measures to prevent skin/ tissue injury due to thermal or mechanical sources Evaluates for signs and symptoms of physical injury to skin and tissue Entry 1 Skin Integrity Intact, [place], Warm, and Skin Abnormality No Dry Outcomes Met? Yes Last Modified By: Sharri Wilson RN 03/22/23 07:21:41 Post-Care Text: The patient is free from signs and symptoms of injury caused by extraneous objects Patient Positioning FTPM Pre-Care Text: Identifies physical alterations that require additional precautions for procedure-specific positioning, verifies presence of prosthetics or corrective devices, positions the patient, evaluates the patient for signs and symptoms of injury as a result of positioning Entry 1 Procedure TRANSFORAMINAL EPIDURAL Body Position Prone STEROID INJECTIO(Bilateral) Feet Uncrossed? Yes Left Arm Position Resting at Side Right Arm Position Resting at Side Left Leg Position Extended Right Leg Position Extended Positioning Device Pillow Under Head Large, Safety Strap, Pillow Large Under Knees Press Points Checked Yes By Sharri Wilson RN Outcomes Met? Yes Last Modified By: Sharri Wilson RN 04 (more content not included)... Normal [facility] Main OR Preoperative Recordo n 03-22-2023 Main OR Preoperative Record Holding Area Document Type FTPM Summary Primary Physician: Denny Barber MD Finalized Date/Time: 03/22/23 07:17:47 Pt. Name: ALOKCLARICE D.O.B./Sex: 1960 Female Med Rec #: [id number] Physician: Denny Barber MD Financial #: [id number] Pt. Type: P Room/Bed: / Admit/Disch: 03/22/23 06:57:25 - Institution: Case Times Holding FTPM Pre-Care Text: Verifies consent for planned procedure, identifies individual values and wishes concerning care, includes family members in perioperative teaching Secures patient's records' belongings, and valuables, maintains patient's dignity and privacy, and maintains patient confidentiality Entry 1 In Holding 03/22/23 07:16:00 Outcomes Met? Yes Last Modified By: Trudy Golden RN 03/22/23 07:16:05 Post-Care Text: The patient participates in decisions affecting his or her perioperative plan of care The patient's right to privacy is maintained Surgery Checklist FTPM Entry 1 Patient Birthday, ID Band Procedure History and Physical, Identification: Check, Patient Verification: Surgical Consent, With Participation Patient NPO after Midnight: No Date/Time: 03/22/23 07:16:00 Results Reviewed 0630 cup of coffee Personal Items: Dentures, Glasses, Comments: Jewelry Personal Items Pt. wearing upper Complaints of Pain: Yes Comment: partial, one ring and glasses. Pain Comment: 2/10 lower back pain Operative Site Yes Marking: Marked By: Dr. Barber Location: bilateral L4 Availability Equipment, X-Ray Verified: Does Patient Smoke No Patient states Yes Comment - Adult -Bunny postop adult Supervision supervision available Case Cancelled in No Holding Area see comments below for reason Last Modified By: Trudy Golden RN 03/22/23 07:17:43 Finalized By: Trudy Golden RN Document Signatures Signed By: Trudy Golden RN 03/22/23 07:17 Trudy Golden RN 03/22/23 07:17 [facility] Operative Reporton Operative Report SURGERY DATE: 03/22/2023 DIAGNOSIS: Lumbar sprain OPERATION: Bilateral lumbar transforaminal epidural steroid injection under fluoroscopic guidance of the L4 nerve roots at the L4-L5 foramina SOLUTION USED: 1 mL of 2% lidocaine, 3 mL of normal saline and 1 mL of Kenalog 40 mg, 5 mL total, 2.5 mL per site; contrast was 1 mL of Isovue per site; local anesthetic was 2 mL of lidocaine 1% per site ANESTHESIA: Local COMPLICATIONS: None PROCEDURE: After informed consent was obtained, the patient was brought to the Operating Room and placed in the prone position. The area in question was prepped and draped in a sterile fashion. An ipsilateral oblique fluoroscopic view of the lumbar spine was obtained and after a local anesthetic was administered into the skin, a 22 gauge Chiba needle was inserted into the skin and advanced to the 6 o'clock position beneath the left L4 pedicle under intermittent fluoroscopic guidance. Proper needle position was confirmed via AP and lateral fluoroscopy. Contrast was administered under live fluoroscopy in both views and demonstrated appropriate epidural and nerve root uptake and the absence of any intravascular or intrathecal spread. The local anesthetic steroid solution was injected incrementally. The needle was removed. Bleeding was nil. The procedure was repeated in the same manner at the same level on the opposite side. The patient tolerated the procedure well and was transferred to the Recovery Room in good condition. Denny Barber M.D. [facility] Comment on above: Result Comment: Elec tronically Signed By: Sunil ALVAREZ, Denny\.br\Date and Time Signed: 03/22/23 08:08 EDT Heart and Vascular Office/Cl inic Noteon 03-20-2023 Heart and Vascular Office/Clinic Note Chief Complaint here for f/uof ED visit History of Present Illness Clarice Dickinson is a 63-year-old female patient here today for follow-up after ER visit. She had gone to [facility], ER with complaints of bilateral upper extremities paresthesias. She had no chest pain per se, they did do an EKG which was nonacute and troponins which were negative. She had been seen by Dr. Dodson in the past for abnormal EKG prior to MRI requiring sedation. ordered echocardiogram which showed normal LV function, RVSP of 38 mmHg. Doing well today, no new cardiac complaints. Her symptoms are driven by psychosocial stressors. She describes her discomfort as numbness and tingling in the arms. Occasionally she will get some chest tightness when stressed emotionally. No family history, no tobacco use, no other significant cardiac risk factors beyond age and gender. Review of Systems Constitutional: no fever, no chills, no weakness, no fatigue Respiratory: no shortness of breath, no cough, no orthopnea, no wheezing Cardiovascular: no chest pain, no palpitations, no edema Neuro:no dizziness no light headed no syncope Additional ROS info: Except as noted in the above Review of Systems and in the History of Present Illness all other systems have been reviewed and are negative or noncontributory. Physical Exam Vitals & Measurements HR: 88(Peripheral) BP: 128/84 SpO2: 97% HT: 61 in HT: 155 cm WT: 92 kg WT: 202.4 lb BMI: 38.29 General: alert, no acute distress Neck: Supple, noJVD nocarotid bruit Cardiovascular: regular rate and rhythm, no murmur normal peripheral perfusion Respiratory: Lungs CTA, respirations non labored Extremities:no edema Neurological: oriented x 4, LOC appropriate for age, sensation equal & normal bilaterally, speech normal Skin: Warm, dry, intact- no rash or concerning lesions Cardiac Diagnostics (02/28/2022 09:54 EDT Echo Transthoracic Complete) SUMMARY/CONCLUSION: 1. Normal left ventricular size and function with a left ventricular ejection fraction of 65%. 2. Mild left atrial enlargement. 3. Trivial tricuspid regurgitation with mildly elevated pulmonary pressures of 38 mmHg. 4. Stage 1 diastolic dysfunction. 5. No old echocardiograms for comparison. [1] Assessment/Plan 1. Chest pain (R07.9: Chest pain, unspecified) Her chest pain is atypical. Her EKG is unchanged from prior, troponin was negative. Her echocardiogram shows normal LV function. She can continue her daily aspirin. We discussed stress ECG to rule out ischemia. She could also have coronary artery calcium score. She will call us after school is finished and we will likely proceed with stress testing, does not want to schedule today, which is fine Follow-up With When Contact Information ALL GARCIA, Sherin[place] [address]- [phone] Additional Instructions: Follow-up after cardiac testing. Problem List/Past Medical History Ongoing Long-term current use of opiate analgesic drug Obesity, Class III, BMI 40-49.9 (morbid obesity) Overactive bladder due to prolapse of female genital organ Historical Inguinal pain Recurrent UTI Suprapubic pain Urethral lesion Procedure/Surgical History Eye (12/13/2022), Epidural injection of lumbar spine using fluoroscopic guidance (11/23/2022), Injection of nerve root of lumbar spine using fluoroscopic guidance (07/06/2022), MRI - Magnetic resonance imaging (04/08/2022), Partial hysterectomy (2005), History of knee surgery. Medications acetaminophen, 500 mg, Oral, PRN Advil, 200 mg, Oral, q6hr, PRN aspirin 81 mg oral capsule, 81 mg= 1 cap(s), Oral, Daily aspirin 81 mg Oral EC Tab, 81 mg= 1 tab(s), Oral, Daily Matilde-C 1000 mg oral tablet, 1000 mg= 1 tab(s), Oral, Daily Estrace 0.1 mg/g Cream, 1 gm, Topical, MonWedFri, 3 refills Misc Medication, See Instructions Misc Medication, See Instructions Multi Vitamin+, 1 tab, Oral, Daily Vitamin D3 1000 intl units oral capsule, 25 mcg= 1 cap(s), Oral, Daily Allergies No Known Medication Allergies Social History Alcohol - Denies Alcohol Use, 03/30/2018 1-2 times per year, 03/13/2023 Substance Abuse - Denies Substance Abuse, 03/30/2018 Tobacco - Denies Tobacco Use, 03/30/2018 Never (less than 100 in lifetime) Tobacco Use:. Never Smokeless Tobacco Use:., 03/14/2023 Family History Family history is negative Immunizations Vaccine Date Status SARS-CoV-2 (COVID-19) mRNA-1273 vaccine 03/12/2021 Recorded SARS-CoV-2 (COVID-19) mRNA-1273 vaccine 02/10/2021 Recorded [1] Echo Transthoracic Complete; Jonathan ALVAREZ, Raphael Negro 02/28/2022 09:54 EDT Normal [facility] Comment on above: Result Comment: Elec tronically Signed By: Sherin CARRIZALES CNP\Date and Time Signed: 03/20/23 14:22 EDT Coding Summary.on 03-16-2023 Coding Summary. CD:[id number] W w+PGhlYWQ+UW2VVBCcS46 ojWRlnE5kC5OXSTkSTeft HILSYRmIJtKxqpKgKS0qw XNjZXJu IC8+UN1hDXLbOjkqzGEbp 5G0bKQ7W66msl5aOWsuvX A4SAWrRiZevhkbv6rihKg 6IDcuNmluOyBt CQGfdD26KGU6fY57Zn13m TThaFAou6zokBx3GfCpHN MsUVC0uEtgCHwtr5ZgYYK eH84qdWTpi9C5 YHMrsDaxnCPxXwMalIX7l L4uYUpxkooxh3owefkaYz z7sv39bRZsd2H3aUL6Z6D siiH3ZFQutXQc UahxfIRVvR0qlazez5vec lqaRtFzYGRuUAu9KPp4QR QitMisTuDlCY71VNA5JKW kayZhC7YzDVQg gSppHjM5a3F3Cl2US8MOQ lkoU7EVFPDSYJtraTP+PC 70wq22X7NpZnhrQgf1EBX tPJV5cHB1zJ4e IPJuASadl4E3kRO0U2Lwh vLmfm1vy5xaEDJhXDylQ8 8ovJBxo9Z0VYXucQS7OIR vtAucMyHvhY45 Oyc+OZEviZbkr2CaAzpsb 7pym2xeaVt6JsvuFKUdyr CfqKuuIGD7q4HfVh9yKTI btLI3zIX9mC7r QrUyOlP0JAogN879QwHcz UOxRmpiW15iB5TewYG+PH EiBfp4YSXokAlrVC3rI4C hZGRpbmctbGVm xEzzPE6jCUYfayacOMKmk C0wWDNdB1n5JzFbAjX8SZ flD5HyYNFvfainUd10bQ8 jOuKxOyV9QDbc V6MmnhC0ABNyjNJrVBqpH UD2M60uj7I0JPAfXTDfHD J2pFW2yZ0znSvdaqmlkXV mdDsgdmVydGlj HGgzJUqwW875BMCzyFyuM kNvZGluZyBEYXRlOiAgMD QvMjAvMjAyMzwvdGQ+PHR pPHW5zLopNVIc oGEgMLbbQm2hzFyxdIvsR F6jZNOdcewgIRVkyF5yBK XbdYKbsUvpGU7hAXYgine db757RnQtYRX7 FDCzlCRbB4PhmZ2yDdWtM NVtWKVqT2OhtGVtEMclK5 09UDajTzO1RMZsuuViO7Y sLWFsaWduOiB0 j0X6Xs0No1LpsaxcO6Xkw HEvIdEfWwucQZo7B3LlNl wvdHI+QS81TNKiOI59WFb 7QDX5fZcyIYzv JBUsS1AerW3tPgHhKRQpT GRkOyc+PHRhYmxlIHdpZH RoPScxMDAlJyBzdHlsZT0 zGz9jYGTyUOSx eFkymREiXvBri4ipNFQiY DutIV6tpPajW8XjnGE7YS Xhs3l9Mu85Q21rK8ZabXA +ESZglXJ6pDM5 uW0yYpAoYwP6FYuqP646M dBluWZfIuwzg6brl8ocyP m8KsO5OVWsldEbbVgmEZG 6f2JpCa45P55c IHdpZHRoPSIxNSUiIHZhb Ujrag8yrA5nSp8+PGNvbC D7pOQ5bH9mFcEmTkW2KGf vI471KeCooKDv Cqfxj1wlk5hxuHq8YoPuR VEnewIauRvvCJR3p6FgLk 32N7SxgYzll8UtNit0cl2 3nAUfd9K0xAZ6 S2NkUOXywxrulTDnfFjhN U6zSKOhabmfDQPpeN9dVF SvN6s5UtCbWlX3QNfvC0T nazL2YYIwkZMy YBEkgPCUeJ8vhzgpk8sfp kxjMdXlBWUhSRd5ZSt4DO SirQpnQvYgWGX5GnB4ZPC 1vPGuqR1qqYqw wtusbE5qRrw+DBV5jVZam ASRXR2uRovhtBV+PHRkIH V8qDieJJtwRWFqmN3jQCU mI5q7AvOoGdW1 CLmwZ5RzkfA8HSUwlAJwA KDurEYJbH4xlzkjn9ysqe rmSvIsNKGgZLs7MPz0SZO saWduOiBsZWZ0 BuC9MAC7tYOqsZ2nxBfzb uazqF6iAof+QmlydGggRG E5SDo6N8CjBso8TKJglYl qUY2lpRXcTGrw Ep9qrHrmnPqeAP9fVMVya hivn943NgPlp6rfMPAfuQ HoZSykWQL6E67wz5G8CDS eORPfWDA9eQN0 cY4ajUbcmxvqkDVxfTtsb wHmlZqwSOmhPMybZ147VI MwxEvdMxZlCPu6I5HkDig 3UXUkiOlrNW3x uPGlVAgyQe3kwAfcnXbzO S2tTHGrpuyum461QnPgl4 ssOUNrqEPeLVeqPPM4K17 ql2C6WTYsXBBw RGM6bZB3aR3ioVdbjndqc GVmdDsgdmVydGljYWwtYW wpY181FPOdyGphXuEliNx 2B6IjLku9MYFh xDwjSU6fpTGvAVykKx2zx SonkUsoRE9mOKPozgnyr5 14ZdRbm0nmTZSnwWTgLQx wLVO9N70jg3D1 QBLeZMCsHTU6fZY1pB5rs GlnbjogbGVmdDsgdmVydG fwJFawJWcsS193HXUdjJc nPlBhdGllbnQg VPhmQCm2Y7QyGwlhqBP+P T15RPRdWC15zCQlgNWec5 tuvCm8OyApEVIaGZC2bSk oWAxxw3BtTJJt Q69idJTjl1X2BHZxfTtxm YUyFmGaeTT9qK0rAChfsg qvg3pazwptWmxqq3xowu3 2gO40O05rKLly ZHRoPSIzMCUiIHZhbGlnb e2cyP0hPt5+LONgpXL5uS L1cO5uHUMaIbW2FIagH01 9InRvcCIvPjxj i3fxz0mzpJt6KkL4UODew tHcnAjiVKY4r5SvMq74F4 9sIHdpZHRoPSIyMCUiIHZ erOhvdj6wmW5f Ii8+ICNwtOW9jPC5lO4xK nHyNaL9BExxE700DnKovI TrKpvqL10dL3WnvOV+PHR xYsw1EWXseJlj DF4zfBKrZGtjGz6dRGP4X jRxYrEwODbiE5ZxLGKpam gllgxknJN7JXRvBNNvcT8 1Tq2zlHfqRREu jXZSbU5athbyf3lkgmarO zCpPNGpKYy0CAu9ROKcpK yoChPhPGH6IcZ3WHO2eFP vtX9wpGxrojzv hK2uK9HaAHGjvhvvUf20w A7aXuNpLxM8QCqqDoq+Ql AQC7zNUbNaFAQJAzKoOIf vdGQ+PHRkIHN0 zZxeKEwpKPHlhR9jGQSzP 8b9SkYuOsE7XXjxV2FiWL QuvxinZx88eR9pInMhUhI 0IQwhM4XjngS1 IWVbvNZiSLseWYS6E23al 6G8ENHhDLYoGQN8yHN3zJ 1hbGlnbjogbGVmdDsgdmV ydGljYWwtYWxp V939FKXjhEscSpA3BhG0Z aA4YwO5L5JiXhd9ZJJiwA rjJO9pdUKbKKgrBx0cpIn izAmkNQ2vMQGm eusyRNBznX8cBHThvGYib DmgSM4fHJYnwavxa110Bp DbBKW6OLEekLFcT0EcfJ4 yOiAjMDAwMDAw M7DasRRjRXydM406FQupK jR1VYGzviSeD3JpCOXknF dlGlC3m4D2To74RyZQAFK yczwvdGQ+PHRk OHO0aZeyCNfeMQBxlE7nL SIzD1f4SoVoGfN8NBcdU5 LuKAYratljAh62vN1fEeL nHnQ5GWnrG2On daL8WGQhrPOaKOgyMMJ7L 51un7Q4BHYtDNMfVXG9tD P4fF3epIgyakkdyOEbsKr gdmVydGljYWwt UZmsE633LKBfdRitOcXlk WFsZTwvdGQ+XMSuYVI1eM bbFPoaBLLorH3xTIOiQ3z 7GiOoLoZ5EEkz C1TcBQVwckvsBf96pH5xU tTaNjO4HJzoK9SowlO3PV KjnCDaBBzvNJD2D62ko7O 7HXEfZSSuLXY7 mQN3lU1svHkqxpevnQImn DsgdmVydGljYWwtYWxpZ2 84MKKapXapKfRqOTGwAR2 jeTwvdGQ+PC90 pi17N9LrPamsEgc3EPVeG FN3eZM6yQ0mADIePJsww4 W4iWH4L8AsmmLwnc8we0w jMCSfWPjqU49i uATah5H4KJLzmDN3DTKcc CjaPfUvwH39Dyr+PGNvbG mok4OkBtucp0qhm0jfsIk 9IjMwJSIgdmFs oExrMPM0s7CzNx78K93qI HdpZHRoPSIzMCUiIHZhbG mdjv6xdN1oLz3+PGNvbCB 2fUF3uR8fUhBl AeF5LBeaV502UaWbwDZiO utyp0mcm8vjdEd9LjZbVD IwbkAhiHzxHEJ2g8EkJv3 6G2ExrWmfr5Mz Ekh3om07eEQvj0K5lVX8U 3BhZGRpbmctbGVmdDogMC 6rMTTifhywSEFvaD9iXTF oO4g8CfRoFcI9 JRcoC3PkxdY7OBModKRxR NIoyZNKbD6ipnzlu5ovby uoKtHdLYTxBMz3TCr8CUM saWduOiBsZWZ0 QiN5MQI2tIRegE0jbRryc jottE4vFmk+ZHp3d1ddzD DaQK7wxDW4JV73ZD24iRJ xh0L5zQK1B1Ax EASgetqrbaefnVK5XQKgQ AOrvA63Ls7afOicLa2eDC LyDJP7XNHdoYKlQ0OvlS2 yOiAjMDAwMDAw X0IpfPKvUIbyG138KOrgL yS7ZSTaguHiG7LzIHKyiH fnChA8y0O1Nr0CHG82HI6 8KV31zEVld8B8 eKP4T0RfBZBjafxgeaqmr RO7DEElXJUdbX73Gt1buX dmYy9pHLXdLJT5PUGveYX tD2TmuN9vRiEr SZMqGQEcM8FfqLVwZUcyK 234PQvoRbC9DZRzsrKcG2 VjUSQqaUuwVrZ0c0W6Wy2 OPt63OM24EH59 zPNbz5C8tAS8G3BiRNPvf jzofybzvDG7UNJrNANvdG 15Wn1tlSibKm1xLCExWLX 8BHNkcZAeH0Qw qF3fZaCzQHAoUNQpY0Ojt GSwMPvwY042YBfqCcQ9ZL EoztUtY4XmBNAryTicKeL 8b2J7Qa6DKRdh fgh3N0AxNjbvwXX+PC90Y NDaHA32cJEpbQZft0yhkH z0SmBdCQDkBHV9eFyzYPq jg3LpEMJzM96p aRCfd7V9 (more content not included)... Normal [facility] Consent for Treatmenton 02-25 Consent for Treatment [id number]#1 .00CD:127 Normal [facility] Prescriptions/Work Noteson 0 03-14-2023 Prescriptions/Work Notes [id number]# 1.00CD:127 Normal [facility] Progress Note-Nurseon 2022 Progress Note-Nurse [id number]# 1.00CD:127 Normal [facility] Auto Diffon 03-13-2023 Basophils/100 WBC (Bld) 0.6 % Normal 0.0-2.0 [facility] Comment on above: Order Comment: Order Added by Discern Expert. Performed By: #### 2 062423, 8859314, 6587455, 4953936, 63410828, 71541314 ####[facility] [address] [place] [address] Basophils/Leukocytes Auto (Bld) [Pure # fraction] 0.0 E9/L Normal 0.0-0.2 [facility] Comment on above: Order Comment: Order Added by Discern Expert. Performed By: #### 2 194307, 8362987, 8067985, 7360324, 82037901, 82973089 ####[address] [address] Eosinophils/100 WBC (Bld) 0.4 % Normal 0.0-8.0 [facility] Comment on above: Order Comment: Order Added by Discern Expert. Performed By: #### 2 626513, 2721420, 6519132, 5143409, 42838498, 85737920 ####[address] [address] Eosinophils/Leukocytes Auto (Bld) [Pure # fraction] 0.0 E9/L Normal 0.0-0.5 [facility] Comment on above: Order Comment: Order Added by Discern Expert. Performed By: #### 2 223286, 7025195, 3020063, 8551568, 25759692, 93313550 ####[address] [address] Lymphocytes/100 WBC (Bld) 20.4 % Normal 14.0-50.0 [facility] Comment on above: Order Comment: Order Added by Discern Expert. Performed By: #### 2 088578, 6447987, 6803458, 0384260, 57073713, 89106292 ####[address] [address] Lymphocytes/Leukocytes Auto (Bld) [Pure # fraction] 1.0 E9/L Normal 1.0-4.0 [facility] Comment on above: Order Comment: Order Added by Discern Expert. Performed By: #### 2 931429, 7087160, 0837664, 4954736, 99106257, 55579947 ####[address] [address] Monocytes/100 WBC (Bld) 6.0 % Normal 4.0-14.0 [facility] Comment on above: Order Comment: Order Added by Discern Expert. Performed By: #### 2 185981, 4003315, 0527238, 0924620, 99683423, 70319735 ####[facility] [address] [place] [address] Monocytes/Leukocytes Auto (Bld) [Pure # fraction] 0.3 E9/L Normal 0.2-1.0 [facility] Comment on above: Order Comment: Order Added by Discern Expert. Performed By: #### 2 315783, 2692573, 7096961, 4574535, 84577243, 90669142 ####[facility] [address] [place] [address] Neutrophils/100 WBC (Bld) 72.6 % Normal 36.0-75.0 [facility] Comment on above: Order Comment: Order Added by Discern Expert. Performed By: #### 2 519633, 0409905, 0810547, 8414438, 88783245, 10746792 ####[facility] [address] [place] [address] Neutrophils/Leukocytes Auto (Bld) [Pure # fraction] 3.6 E9/L Normal 2.0-7.5 [facility] Comment on above: Order Comment: Order Added by Discern Expert. Performed By: #### 2 722592, 8767929, 6527811, 6622174, 15494931, 73128367 ####[facility] [address] [place] [address] CBC w/ Auto Diffon Erythrocyte distribution width (RBC) [Ratio] 13.9 % Normal 10.9-14.2 [facility] Comment on above: Performed By: #### 2 395471, 2199163, 6069597, 0081889, 45100115, 36071997 #### [facility] [address] [place] [address] Hematocrit (Bld) [Volume fraction] 42.6 % Normal 34.0-46.0 [facility] Comment on above: Performed By: #### 2 601036, 2227921, 1340118, 7947667, 54478275, 50491538 #### [facility] [address] [place] [address] Hemoglobin (Bld) [Mass/Vol] 13.9 g/dL Normal 12.0-16.0 [facility] Comment on above: Performed By: #### 2 134031, 5611129, 9669536, 6695696, 56901723, 27647657 #### [facility] [address] [place] [address] MCH (RBC) [Entitic mass] 28.9 pg Normal 27.0-34.0 [facility] Comment on above: Performed By: #### 2 451158, 6281002, 0818326, 1506805, 24033090, 20854186 #### [facility] [address] [place], [place] [address] MCHC (RBC) [Mass/Vol] 32.6 g/dL Normal 31.4-36.0 [facility] Comment on above: Performed By: #### 2 744957, 1439624, 9585597, 9522106, 57939979, 66811597 #### [facility] [address] [place] [address] MCV (RBC) [Entitic vol] 88.7 fL Normal 80.0-100.0 [facility] Comment on above: Performed By: #### 2 047411, 3324091, 2329959, 9425771, 51651020, 12403327 #### [facility] [address] [place] [address] Platelet mean volume (Bld) [Entitic vol] 8.6 fL Normal 6.4-10.8 [facility] Comment on above: Performed By: #### 2 458816, 4397561, 7905335, 4686491, 41134729, 86321936 #### [facility] [address] [place] [address] Platelets (Bld) [#/Vol] 166.0 E9/L Normal 150.0-500.0 [facility] Comment on above: Performed By: #### 2 530826, 9872458, 6354255, 1735070, 43673626, 36567148 #### [facility] [address] [place] [address] RBC (Bld) [#/Vol] 4.8 E12/L Normal 4.3-5.9 [facility] Comment on above: Performed By: #### 2 915597, 8639605, 9390713, 1818670, 21463421, 24022933 #### [facility] [address] [place] [address] WBC corrected for nucl RBC Auto (Bld) [#/Vol] 4.9 E9/L Normal 4.0-11.0 [facility] Comment on above: Performed By: #### 2 845038, 0898832, 6497862, 2436901, 64135867, 69820702 #### [facility] [address] [place] [address] CMPon 03-13-2023 Albumin [Mass/Vol] 3.9 g/dL Normal 3.3-5.0 [facility] Comment on above: Performed By: #### 2 640901, 3343742, 0764965, 2554655, 38844007, 96783132 #### [facility] [address] [place] [address] Albumin/Globulin (S) [Mass conc ratio] 1.3 Normal 1.1-2.2 [facility] Comment on above: Performed By: #### 2 440583, 3515836, 0850013, 9159560, 15907874, 77944359 #### [facility] [address] [place] [address] ALP [Catalytic activity/Vol] 57 Int._Unit/L Normal 21-98 [facility] Comment on above: Performed By: #### 2 697944, 3883645, 9653394, 4126776, 94133987, 36945259 #### [facility] [address] [place] [address] ALT No additional P-5'-P [Catalytic activity/Vol] 11 Int._Unit/L Normal 6-46 [facility] Comment on above: Performed By: #### 2 566731, 1785696, 9680096, 6229403, 75091530, 59064111 #### [facility] [address] [place] [address] AST [Catalytic activity/Vol] 23 Int._Unit/L Normal 5-43 [facility] Comment on above: Performed By: #### 2 176426, 1928206, 3455175, 1641209, 84913175, 85315359 #### [facility] [address] [place] [address] Bilirubin [Mass/Vol] 0.8 mg/dL Normal 0.0-1.1 [facility] Comment on above: Performed By: #### 2 681096, 8150378, 6501543, 1636050, 28703278, 63973514 #### [facility] [address] [place] [address] Creatinine [Mass/Vol] 0.9 mg/dL Normal 0.5-1.3 [facility] Comment on above: Performed By: #### 2 400517, 4735856, 9746681, 1391744, 60775675, 76723298 #### [facility] [address] [place] [address] Globulin (S) [Mass/Vol] 3.1 g/dL Normal 1.4-4.0 [facility] Comment on above: Performed By: #### 2 185054, 2347688, 2335045, 5868882, 19999157, 45456566 #### [facility] [address] [place] [address] Protein [Mass/Vol] 7.0 g/dL Normal 6.0-7.8 [facility] Comment on above: Performed By: #### 2 729934, 2874249, 3070889, 7727975, 43140991, 63522290 #### [facility] [address] [place] [address] Urea nitrogen [Mass/Vol] 12 mg/dL Normal 5-21 [facility] Comment on above: Performed By: #### 2 374160, 9690520, 3914733, 7159321, 56491722, 22382783 #### [facility] [address] [place] [address] Urea nitrogen/Creatinine [Mass ratio] 13 No Units Normal 10-20 [facility] Comment on above: Performed By: #### 2 229080, 0506453, 3888722, 2492445, 77296849, 23798359 #### [facility] [address] [place] [address] Anion gap [Moles/Vol] 11 mmol/L Normal 6-16 [facility] Comment on above: Performed By: #### 2 614858, 1464735, 3283967, 0534056, 51376557, 59656093 #### [facility] [address] [place] [address] Calcium [Mass/Vol] 9.2 mg/dL Normal 8.9-11.1 [facility] Comment on above: Performed By: #### 2 782628, 2617599, 8818820, 2478973, 48108820, 61721196 #### [facility] [address] [place] [address] Chloride [Moles/Vol] 103 mmol/L Normal 101-111 [facility] Comment on above: Performed By: #### 2 174122, 6568899, 5566253, 4275640, 67318196, 96062605 #### [facility] [address] [place] [address] CO2 [Moles/Vol] 26 mmol/L Normal 21-31 [facility] Comment on above: Performed By: #### 2 687228, 3258596, 1658237, 0782000, 78616471, 23669778 #### [facility] [address] [place] [address] Glucose [Mass/Vol] 133 mg/dL Normal 55-199 [facility] Comment on above: Result Comment: If t his glucose result represents a fasting glucose, interpretation should refer to the following reference range: 55-99 mg/dL Performed By: #### 2 126916, 3449681, 4791806, 2272734, 33392278, 08956933 #### [facility] [address] [place] [address] Potassium [Moles/Vol] 3.7 mmol/L Normal 3.5-5.3 [facility] Comment on above: Performed By: #### 2 578969, 1595371, 3841623, 5321213, 79410067, 94193520 #### [facility] [address] [place] [address] Sodium [Moles/Vol] 136 mmol/L Normal 135-145 [facility] Comment on above: Performed By: #### 2 201857, 6823785, 3962429, 0988109, 55271468, 16850055 #### [facility] [address] [place] [address] Capillary Glucose POCon 02-25 Glucose [Mass/Vol] 114 mg/dL High 55-99 [facility] Comment on above: Performed By: #### 2 74777117 #### [facility] [address] [place] [address] Consent for Treatmenton 02-25 Consent for Treatment [id number]#1 .00CD:127 Normal [facility] Discharge Instructionson Discharge Instructions [id number]# 1.00CD:127 Normal [facility] ED Clinical Summaryon 2022 ED Clinical Summary [address] [address] ED Clinical Summary Person Information Name: CLARICE DICKINSON[place] Age: 63 Years : 1960 Sex: Female Language: Sudanese PCP: Tash Recio MD Marital Status: Phone: [phone] Visit Id: Visit Reason: Paresthesia; Medical screening exam; LIGHTHEADED, TINGLY ARMS Speciality: Acuity: 3 Enc Type: Emergency Med Service: Emergency Arrival: 03/13/2023 08:55:13 Discharge: 03/13/2023 11:04:42 LOS: 000 02:09 Checkin: 03/13/2023 08:55:13 Checkout: 03/13/2023 11:04:42 Dispo Type: Home (Routine DC) EVENTS: Event Name Event Status Request Date/Time Start Date/Time Complete Date/Time Arrive Complete 03/13/2023 08:55:13 03/13/2023 08:55:13 03/13/2023 08:55:13 Document Home Meds Request 03/13/2023 08:55:13 Triage Complete 03/13/2023 08:55:13 03/13/2023 09:05:13 03/13/2023 09:05:13 Bed Assign Complete 03/13/2023 08:58:06 03/13/2023 08:58:06 03/13/2023 08:58:06 Dr Exam Complete 03/13/2023 08:58:06 03/13/2023 08:58:25 03/13/2023 08:58:25 RN Exam Complete 03/13/2023 08:58:06 03/13/2023 09:15:32 03/13/2023 09:15:32 Registration Complete 03/13/2023 08:58:25 03/13/2023 09:08:20 03/13/2023 09:08:20 Pending Labs Complete 03/13/2023 09:07:06 03/13/2023 10:51:34 Lab Complete 03/13/2023 09:07:06 03/13/2023 10:01:27 EKG Complete 03/13/2023 09:07:06 03/13/2023 09:17:53 Reg Complete Request 03/13/2023 09:08:20 Reg Bed Request Complete 03/13/2023 09:08:20 03/13/2023 09:08:20 03/13/2023 09:08:20 X-Ray Complete 03/13/2023 09:11:37 03/13/2023 09:20:51 03/13/2023 09:30:45 Pending Labs Complete 03/13/2023 09:14:39 03/13/2023 09:14:39 03/13/2023 09:36:06 Lab Complete 03/13/2023 09:14:39 03/13/2023 09:14:39 03/13/2023 09:36:06 Pending Labs Complete 03/13/2023 09:15:47 03/13/2023 09:15:47 03/13/2023 09:15:47 Pending Labs Complete 03/13/2023 09:18:49 03/13/2023 09:18:49 03/13/2023 09:18:50 Wet Read Complete 03/13/2023 09:30:45 03/13/2023 10:16:46 03/13/2023 10:16:46 Pending Labs Complete 03/13/2023 09:36:47 03/13/2023 09:36:47 03/13/2023 09:36:55 Lab Complete 03/13/2023 09:36:47 03/13/2023 09:36:47 03/13/2023 09:36:55 Discharge Complete 03/13/2023 10:54:02 03/13/2023 11:05:17 03/13/2023 11:05:17 Transfer Complete 03/13/2023 11:05:17 03/13/2023 11:05:17 03/13/2023 11:05:17 ADDRESS: [address] [place] [phone] PHYS DOC NOTES: MEDICAL INFORMATION: Prescriptions Given: [facility], [address], [place] [id number], [phone] lorazepam (Ativan 1 mg Tab) 1 Tablets By Mouth every 8 hours for 3 Days. Take one by mouth every eight hours as needed. Refills: 0. Medications to Continue with No Changes Other Medications acetaminophen 500 Milligram By Mouth as needed as needed for pain. ascorbic acid (Matilde-C 1000 mg oral tablet) 1 Tablets By Mouth every day. aspirin (aspirin 81 mg oral capsule) 1 Capsules By Mouth every day. cholecalciferol (Vitamin D3 1000 intl units oral capsule) 1 Capsules By Mouth every day. takes 6 days a week. estradiol topical (Estrace 0.1 mg/g Cream) 1 Gram Topical Monday. apply pea size amount around urethra opening 3x per week. Refills: 3. ibuprofen (Advil) 200 Milligram By Mouth every 6 hours as needed as needed for pain. multivitamin (Multi Vitamin+) 1 tab By Mouth every day. Non-Formulary Medication (Misc Medication) calcium/magnesium/zin c by mouth daily. Non-Formulary Medication (Misc Medication) K-2 BY MOUTH DAILY. PATIENT EDUCATION INFORMATION: Instructions: Paresthesia, Jjcv-ia-Uzwz Follow up: With: Address: When: Tash Recio [address] [place] [address], [address] [place] [id number] Business (1) In 4 days 03/17/2023 DIAGNOSIS: Anxiousness; Paresthesias Normal [facility] ED Note-Physicianon 03-13-20 ED Note-Physician Basic Information Time Seen: Ashwin Ramos DO 03/13/2023 08:58 Chief Complaint Pt c/o bilateral arm parasthesis since this morning. Pt denies neck/back pain, THOMAS, blurred vision, n/v. History of Present Illness 63 female presents emergency department with bilateral upper extremity paresthesias. Patient states this started a little bit last night but then again this morning. She is never had anything like this before and denies any other associated symptoms. She specifically denies: Headache, changes to speech or vision, dizziness or vertigo, weakness to the upper or lower extremities, chest pain shortness of breath abdominal pain urinary symptoms nausea vomiting diarrhea or any other associated symptoms or complaints. She takes no medications daily other than a daily baby aspirin. She denies any obvious aggravating or alleviating factors. She does state that she is been dealing with a lot of stress lately regarding her father who has been very sick and some of her siblings and their dealings with his care. No other aggravating or relieving factors no other associated symptoms no other prior treatments or complaints. Family: Reviewed and noncontributory Social: lives at home Review of systems negative unless otherwise specified in the HPI. Physical Exam Vitals & Measurements T: 36.4 ?C(Oral) HR: 104(Peripheral) RR: 18 BP: 164/97 SpO2: 97% HT: 155 cm WT: 92.4 kg BMI: 38.46 General: The patient appears well and in no apparent distress. Patient is resting comfortably on cart. Skin: Warm, dry, no pallor noted. Head: Normocephalic, atraumatic Neck: No JVD Eye: PERRLA, EOMI ENT: Moist mucus membranes Cardiovascular: Regular rate normal peripheral perfusion Respiratory: No respiratory distress no accessory muscle use no obvious audible wheezing Chest Wall: no deformity Musculoskeletal: normal ROM, no deformity, no swelling GI: Soft no obvious distention. No rebound or rigidity. No guarding. No tenderness. Neurological: A&O moves all extremities equal strength and symmetry stroke scale score of 0 Psychiatric: Cooperative and appropriate Medical Decision Making MEDICAL DECISION MAKING Number and Complexity of Problems Differential Diagnosis: MDM Data External documents reviewed: My EKG interpretation: in chart if applicable My CT interpretation: in chart if applicable My X-ray interpretation: in chart if applicable My Ultrasound interpretation: Decision rules/scores evaluated: Discussed with: Treatment and Disposition ED Course: Work-up in the ER has been reviewed and noted. Work-up is essentially benign we did check her blood pressure a second time and it was unremarkable. The paresthesias not entirely clear but given that they are bilateral I would not suspect central cause. Patient was educated on signs and symptoms of worsening clinical picture including any changes to speech or vision or lateralization of her symptoms and that if these do occur she needs to return immediately for imaging. In the meantime she does have follow-up with her PCP on Monday we will trial her on some Ativan to see if this helps with her symptoms as she does state that she has a lot going on causing her stress and perhaps this is a manifestation of that stress. She is provided with a note for work and discharged home she is comfortable with the plan. Shared decision making: Code status: Assessment/Plan Anxiousness (F41.9: Anxiety disorder, unspecified) Ordered: lorazepam, 1 mg = 1 tab(s), Oral, q8hr, Take one by mouth every eight hours as needed, X 3 day(s), # 9 tab(s), Refills(s) 0, Pharmacy: [id number], 155, cm, 03/13/23 9:05:00 EDT, Height/Length Dosing, 92.4, kg, 03/13/23 9:05:00 EDT, Weight Dosing Paresthesias (R20.2: Paresthesia of skin) Orders: Automated Diff Capillary Glucose POC CBC w/ Auto Diff Comprehensive Metabolic Panel ECG 12 Lead Adult eGFR Extra Blue Tube Extra SST Tube Troponin TSH With T4fr Reflex XR Chest Single View Disposition Plan Discharge Prescription List Prescriptions Ativan 1 mg Tab, 1 mg= 1 tab(s), Oral, q8hr Follow-up With When Contact Information Tash Recio In 4 days 03/17/2023 EDT [address] [facility] [place] [id number] Business (1) Additional Instructions: Patient Education Paresthesia, Gjjc-rg-Rjsl Problem List/Past Medical History Ongoing Long-term current use of opiate analgesic drug Obesity, Class III, BMI 40-49.9 (morbid obesity) Overactive bladder due to prolapse of female genital organ Historical Inguinal pain Recurrent UTI Suprapubic pain Urethral lesion Procedure/Surgical History Eye (12/13/2022), Epidural injection of lumbar spine using fluoroscopic guidance (11/23/2022), Injection of nerve root of lumbar spine using fluoroscopic guidance (07/06/2022), MRI - Magnetic resonance imaging (04/08/2022), Partial hysterectomy (2005), History of knee surgery. Medications Inpatient No active inpatie (more content not included)... Normal [facility] Comment on above: Result Comment: Elec tronically Signed By: Ashwin Ramos DO\.br\Date and Time Signed: 03/13/23 10:55 EDT ED Patient Education Noteon 03-13-2023 ED Patient Education Note Neurology Paresthesia Paresthesia is a burning or prickling feeling. This feeling can happen in any part of the body. It often happens in the hands, arms, legs, or feet. Usually, it is not painful. In most cases, the feeling goes away in a short time and is not a sign of a serious problem. If you have paresthesia that lasts a long time, you may need to be seen by your doctor. Follow these instructions at home: Alcohol use ? Do not drink alcohol if: ? Your doctor tells you not to drink. ? You are , may be , or are planning to become . ? If you drink alcohol: ? Limit how much you use to: ? 0?1 drink a day for women. ? 0?2 drinks a day for men. ? Be aware of how much alcohol is in your drink. In the [place] one drink equals one 12 oz bottle of beer (355 mL), one 5 oz glass of wine (148 mL), or one 1? oz glass of hard liquor (44 mL). Nutrition ? Eat a healthy diet. This includes: ? Eating foods that have a lot of fiber in them, such as fresh fruits and vegetables, whole grains, and beans. ? Limiting foods that have a lot of fat and processed sugars in them, such as fried or sweet foods. General instructions ? Take fkck-vnp-mljtnjw and prescription medicines only as told by your doctor. ? Do not use any products that have nicotine or tobacco in them, such as cigarettes and e-cigarettes. If you need help quitting, ask your doctor. ? If you have diabetes, work with your doctor to make sure your blood sugar stays in a healthy range. ? If your feet feel numb: ? Check for redness, warmth, and swelling every day. ? Wear padded socks and comfortable shoes. These help protect your feet. ? Keep all follow-up visits as told by your doctor. This is important. Contact a doctor if: ? You have paresthesia that gets worse or does not go away. ? Your burning or prickling feeling gets worse when you walk. ? You have pain or cramps. ? You feel dizzy. ? You have a rash. Get help right away if you: ? Feel weak. ? Have trouble walking or moving. ? Have problems speaking, understanding, or seeing. ? Feel confused. ? Cannot control when you pee (urinate) or poop (have a bowel movement). ? Lose feeling (have numbness) after an injury. ? Have new weakness in an arm or leg. ? Pass out (faint). Summary ? Paresthesia is a burning or prickling feeling. It often happens in the hands, arms, legs, or feet. ? In most cases, the feeling goes away in a short time and is not a sign of a serious problem. ? If you have paresthesia that lasts a long time, you may need to be seen by your doctor. This information is not intended to replace advice given to you by your health care provider. Make sure you discuss any questions you have with your health care provider. Document Released: 10/26/2009 Document Revised: 12/09/2019 Document Reviewed: 11/22/2018 Elsevier Patient Education ? 2019 [employer]. Normal [facility] ED Patient Summaryon 023 ED Patient Summary [address] [address] Patient Discharge Instructions Person Information Name: CLARICE DICKINSON Age: 63 Years Arrival Date: 03/13/2023 08:55:13 Discharge Diagnosis: Anxiousness; Paresthesias Primary Care Physician: Tash Recio MD Provider Information Primary Provider: Ashwin Ramos DO Advanced Church Musician:None The exam and treatment you received in the Emergency Department were for an urgent problem and are not intended as complete care. It is important that you follow up with a doctor, nurse practitioner, or physician?s hospital administrative assistant for ongoing care. If your symptoms become worse or you do not improve as expected and you are unable to reach your usual health care provider, you should return to the Emergency Department. We are available 24 hours a day. CLARICE DICKINSON has been given the following list of patient education materials, prescriptions and follow-up instructions: Follow-up Instructions: With: Address: When: Tash Almita [address] [place] [address], [facility] [address] Business (1) In 4 days 03/17/2023 In the event that this physician does not participate in your insurance network, please consult with your insurance company to find a nearby participating provider. Patient Education Materials: Paresthesia, Upjq-vr-Xzck A MESSAGE TO ALL PATIENTS REGARDING OPIOIDS PRESCRIPTION OPIOIDS: WHAT YOU NEED TO KNOW Prescription opioids can be used to help relieve dttegrbp-md-gvdptc pain and are often prescribed following a surgery or injury, or for certain health conditions. These medications can be an important part of the treatment but also come with serious risks. It is important to work with your healthcare provider to make sure you are getting the safest, most effective care. WHAT ARE THE RISKS AND SIDE EFFECTS OF OPIOID USE? Prescription opioids carry serious risks of addiction and overdose, especially with prolonged use. An opioid overdose, often marked by slowed breathing, can cause sudden . The use of prescription opioids can have a number of side effects as well, even when taken as directed: ? Tolerance?meaning you might need to take more of the medication for the same pain relief ? Physical dependence?meaning you have symptoms of withdrawal when a medication is stopped ? Increased sensitivity to pain ? Constipation ? Nausea, vomiting, and dry mouth ? Sleepiness and dizziness ? Confusion ? Depression ? Low levels of testosterone that can result in lower sex drive, energy, and strength ? Itching and sweating RISKS ARE GREATER WITH: ? History of drug misuse, substance use disorder, or overdose ? Mental health conditions (such as depression or anxiety) ? Sleep apnea ? Older age (65 years and older) ? Avoid alcohol while taking prescription opioids. Also, unless specifically advised by your health care provider, medications to avoid include: ? Benzodiazepines (such as Xanax or Valium) ? Muscle relaxants (such as Soma or Flexeril) ? Hypnotics (such as Ambien or Lunesta) ? Other prescription opioids KNOW YOUR OPTIONS Talk to your health care provider about ways to manage your pain that don?t involve prescription opioids. Some of these options may actually work better and have fewer risks and side effects. Options may include: ? Pain relievers such as acetaminophen, ibuprofen, and naproxen ? Some medication that are also used for depression or seizures ? Physical therapy and exercise ? Cognitive behavioral therapy, a psychological, goal-directed approach, in which patients learn how to modify physical, behavioral, and emotional triggers of pain and stress. IF YOU ARE PRESCRIBED OPIOIDS FOR PAIN: ? Never take opioids in greater amounts or more often than prescribed. ? Follow up with your primary health care provider. o Work together to create a plan on how to manage your pain. o Talk about ways to help manage your pain that don?t involve prescription opioids. o Talk about any and all concerns and side effects. ? Help prevent misuse and abuse o Never sell or share prescription opioids. o Never use another person?s prescription opioids. ? Store prescription opioids in a secure place and out of reach of others (this may include visitors, children, friends, and family). ? Safely dispose of unused prescription opioids: Find your community drug take-back program or your pharmacy mail-back program, or flush them down the toilet, following guidance from the Food and Drug Administration (www.fda.gov/Drugs/Re sourcesForYou). ? Visit www.cdc.gov/drugoverd ose to learn about the risks of opioids abuse and overdose. ? If you believe you may be struggling with addiction, tell your health career technical education instructor and ask for guidance or call [facility]?S National Helpline at 2-602-786-HELP. v Source: [place] Depart (more content not included)... Normal [facility] Monitor Recordon 03-13-2023 Monitor Record [id number]# 1.00CD:127 Normal [facility] Prescriptions/Work Noteson 0 03-13-2023 Prescriptions/Work Notes [id number]# 1.00CD:127 Normal [facility] TSH With T4fr Reflexon 03-13 TSH Qn 1.29 m[IU]/L Normal 0.34-5.60 [facility] Comment on above: Performed By: #### 2 [id number], [id number], [id number], [id number], [id number], [id number] ####[facility] [address] [place] [address] Troponinon 03-13-2023 Troponin I.cardiac [Mass/Vol] 2.80 pg/mL Low 10.10-27.10 [facility] Comment on above: Result Comment: The 95% CI (Confidence Interval) PPV (Positive Predictive Value) for myocardial infarction in females is 38 pg/mL, in males 51 pg/mL. The results should be used in conjunction with clinical conditions of myocardial infarction. (Access High Sensitivity Troponin I Instructions For Use, Iván Larry, June 2018) Performed By: #### 2 [id number], [id number], [id number], [id number], [id number], [id number] ####[facility] [address] [place] [address] XR Chest Single Viewon 03-13 XR Chest Single View Exam Date/Time: 03/13/2023 09:30 EDT Reason for Exam: Chest pain Report IMPRESSION: NO ACUTE CARDIOPULMONARY DISEASE. CLINICAL HISTORY: Chest pain COMPARISON: January 31, 2022 FINDINGS: Osseous structures are intact. Cardiopericardial silhouette is normal. Pulmonary vasculature is normal. Lungs are clear. Ordering Provider: Ashwin Ramos FINAL REPORT Dictated: 03/13/2023 10:06 am Larry Shrestha MD Signed (Electronic Signature): 03/13/2023 10:06 am Signed by: Larry Shrestha MD Transcribed by: GEOVANNY Technologist: DOMITILA Technical Comments Radiation Dose: Ka,r in mGy = na DAP = na Normal [facility] eGFRon 03-13-2023 GFR/1.73 sq M.predicted among blacks MDRD (S/P/Bld) [Vol rate/Area] mL/min/{1.73_m2} Normal >=59 [facility] Comment on above: Order Comment: Order added by Discern Expert. Result Comment: eGFR is race adjusted. AA=. Performed By: #### 2 [id number], [id number], [id number], [id number], [id number], [id number] #### [facility] [address] [place] [address] GFR/1.73 sq M.predicted among non-blacks MDRD (S/P/Bld) [Vol rate/Area] mL/min/{1.73_m2} Normal >=59 [facility] Comment on above: Order Comment: Order added by Discern Expert. Result Comment: Director Of Global Marketing cade kidney disease could be indicated at eGFR's of less than 60 mL/min/1.73m2. Kidney failure is indicated at less than 15 mL/min/1.73m2. Performed By: #### 2 [id number], [id number], [id number], [id number], [id number], [id number] #### [facility] [address] [place] [address] Patient Correspondenceon Patient Correspondence [id number] #1.00CD:127 Normal [facility] Workers' Comp Officeon 02-16 Workers' Comp Office [id number]#1 .00CD:127 Normal [facility] Workers' Comp Office [id number]#2 .00CD:127 Normal [facility] Antonio 10-04-2022 L - -------- Specimen: [id number] Received: 10/05/22 Status: SHILPA Alfredodeepak Num: [id number] Spec Type: Surgical Subm Dr: Brett Scott MD Tissues: A Soft Tissue Mass - Simple Excision (except lipoma) (SCALP) Procedures: Cathryn HENSLEY/Luz Marina Harrington -------- Age/ Patient Sex Location Account Attending Physician -------- Clarice Dickinson 62/F S[place]IE [id number] Brett Scott MD -------- SPEC NUM: [id number] RECD: 10/05/22 STATUS: SHILPA FRYE NUM: [id number] BETSY: 10/04/[address]: Brett Scott MD ENTERED: 10/05/[address] [facility] [address]: SPEC TYPE: Surgical DEPT: S ENTERED BY: [id number] RECV BY: [id number] ORDERED: SHELLIE Gross/Micro L5 ORDERED: SHELLIE Gross/Micro L5 Pathological Diagnosis Left scalp, excisional biopsy: - Trichilemmal cyst. 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 Each is inked and sectioned. The nodule has a rubbery, yellow-white cut surface. The cut surface of the skin is unremarkable. Computer System Technician sections are submitted in one cassette labeled A1. Microscopic Description One glass slide with H E stained material has been examined. The microscopic findings support the above pathologic diagnosis. -------- Specimen: [id number] Received: 10/05/22 Status: SHILPA Alfredodeepak Num: [id number] Spec Type: Surgical Subm Dr: Brett Scott MD Tissues: A Soft Tissue Mass - Simple Excision (except lipoma) (SCALP) Procedures: Cathryn HENSLEY/Micro L5 -------- Patient: Clarice Dickinson [id number] (Continued) -------- Specimen: [id number] Received: 10/05/22 (Continued) Signed (signature on file) Kwesi Johnson MD 10/06/22 1455 -------- Specimen: [id number] Received: 10/05/22 Status: SHILPA Frye Num: [id number] Spec Type: Surgical Subm Dr: Brett Scott MD Tissues: A Soft Tissue Mass - Simple Excision (except lipoma) (SCALP) Procedures: Cathryn HENSLEY/Luz Marina L5 -------- Patient: Clarice Dickinson [id number] (Continued) -------- Specimen: [id number] Received: 10/05/22 (Continued) CPT Codes 82547 -------- -------- Specimen: [id number] Received: 10/05/22 Status: SHILPA Frye Num: [id number] Spec Type: Surgical Subm Dr: Brett Scott MD Tissues: A Soft Tissue Mass - Simple Excision (except lipoma) (SCALP) Procedures: SHELLIE Gross/Luz Marina L5 -------- Patient: Clarice Dickinson [id number] (Continued) -------- Signed (signature on file) Kwesi Johnson MD 10/06/22 1455 [facility] 09-27-2022 L - -------- Specimen: [id number] Received: 09/27/22-125 Status: SHILPA Frye Num: [id number] Spec Type: Surgical Subm Dr: rBett Scott MD Tissues: A Soft Tissue/Surgical Margin-Other than Tumor,Mass,Lip or Alice (LT SCALP) Procedures: Cathryn HENSLEY/Luz Marina Levin -------- Age/ Patient Sex Location Account Attending Physician -------- Clarice Dickinson 62/F SADIE [id number] Brett Scott MD -------- SPEC NUM: [id number] RECD: 09/27/22 STATUS: SHILPA FRYE NUM: [id number] BETSY: 09/27/[address] [facility] [address]: Brett Scott MD ENTERED: 09/27/[address] [facility] [address]: ADEEL TYPE: Surgical DEPT: S ORDERED: HE, Gross/Micro L4 ORDERED: HE, Gross/Micro L4 Pathological Diagnosis Scalp, mass, excision: - Pilar cyst/trichilemma cyst. Clinical Information Mass, increasing in size, primary biopsy; D 49.2. Gross Description Received in formalin labeled with the patient's name, number and mass left scalp is a 2.7 x 2.7 x 1.5 cm dong yeh, rubbery tissue which is partially surface by 1.4 x 0.4 cm ellipse of dong white, hairbearing skin. The cut surface of the nodule is rubbery, dong-yeh, focally gritty. Computer System Technician sections are submitted in one cassette labeled A1. Microscopic Description One glass slide with H E stained material has been examined. The microscopic findings support the above pathologic diagnosis. CPT Codes 90833 -------- -------- Specimen: [id number] Received: 09/27/22 Status: SHILPA Frye Num: [id number] Spec Type: Surgical Subm Dr: Brett Scott MD Tissues: A Soft Tissue/Surgical Margin-Other than Tumor,Mass,Lip or Alice (LT SCALP) Procedures: HE, Gross/Micro L4 -------- Patient: Clarice Dickinson [id number] (Continued) -------- Signed (signature on file) Juan Martel MD 09/28/22 1020 [facility] CBC AUTO DIFFon 07-14-2022 BASO # 0.0 103/ul Normal 0.0-0.1 [facility] Comment on above: Performed By: #### H FPFCBC #### [facility] [address] [address] [address] Jonas Sanchez Basophils/100 WBC (Bld) 0.0 % Critically low 0.2-2.0 [facility] Comment on above: Performed By: #### H FPFCBC #### [facility] [address] [address] [address] Jonas Sanchez EO # 0.0 103/ul Normal 0.0-0.7 [facility] Comment on above: Performed By: #### H FPFCBC #### [facility] [address] [place] [address] Dr. Jonas Sanchez Eosinophils/100 WBC (Bld) 0.5 % Critically low 0.9-7.0 [facility] Comment on above: Performed By: #### H FPFCBC #### [facility] [address] [place] [address] Dr. Jonas Sanchez Erythrocyte distribution width (RBC) [Ratio] 13.6 % Normal 11.0-15.0 [facility] Comment on above: Performed By: #### H FPFCBC #### [facility] [address] [place] [address] Dr. Jonas Sanchez Hematocrit (Bld) [Volume fraction] 44.5 % Normal 36.0-48.0 [facility] Comment on above: Performed By: #### H FPFCBC #### [facility] [address] [place] [address] Dr. Jonas Sanchez Hemoglobin (Bld) [Mass/Vol] 14.5 g/dL Normal 12.0-16.0 [facility] Comment on above: Performed By: #### H FPFCBC #### [facility] [address] [place] [address] Dr. Jonas Sanchez IG # 0.03 10e3/ul Normal 0.00-0.03 [facility] Comment on above: Performed By: #### H FPFCBC #### [facility] [address] [place] [address] Dr. Jonas Sanchez IG % 0.5 % Normal 0.0-0.5 [facility] Comment on above: Performed By: #### H FPFCBC #### [facility] [address] [place] [address] Dr. Jonas Sanchez LYMPH # 1.8 103/ul Normal 1.2-3.8 [facility] Comment on above: Performed By: #### H FPFCBC #### [facility] [address] [place] [address] Dr. Jonas Sanchez Lymphocytes/100 WBC (Bld) 31.3 % Normal 20.5-60.0 [facility] Comment on above: Performed By: #### H FPFCBC #### [facility] [address] [place] [address] Dr. Jonas Sanchez MCH (RBC) [Entitic mass] 29.2 pg Normal 26.7-34.0 [facility] Comment on above: Performed By: #### H FPFCBC #### [facility] [address] [place] [address] Dr. Jonas Sanchez MCHC (RBC) [Mass/Vol] 32.6 g/dL Normal 29.9-35.2 [facility] Comment on above: Performed By: #### H FPFCBC #### [facility] [address] [place] [address] Dr. Jonas Sanchez MCV (RBC) [Entitic vol] 89.7 fL Normal 81.0-99.0 [facility] Comment on above: Performed By: #### H FPFCBC #### [facility] [address] [place] [address] Dr. Jonas Sanchez MONO # 0.4 103/ul Normal 0.3-0.8 [facility] Comment on above: Performed By: #### H FPFCBC #### [facility] [address] [place] [address] Dr. Jonas Sanchez Monocytes/100 WBC (Bld) 6.4 % Normal 1.7-12.0 [facility] Comment on above: Performed By: #### H FPFCBC #### [facility] [address] [place] [address] Dr. Jonas Sanchez NEUT # 3.6 103/ul Normal 1.4-6.5 [facility] Comment on above: Performed By: #### H FPFCBC #### [facility] [address] [place] [address] Dr. Jnoas Sanchez Neutrophils/100 WBC (Bld) 61.3 % Normal 43.0-75.0 [facility] Comment on above: Performed By: #### H FPFCBC #### [facility] [address] [place] [address] Dr. Jonas Sanchez Platelet mean volume (Bld) [Entitic vol] 11.4 fL Normal 9.5-13.5 [facility] Comment on above: Performed By: #### H FPFCBC #### [facility] [address] [place] [address] Dr. Jonas Sanchez PLT 172 103/ul Normal 150-450 [facility] Comment on above: Performed By: #### H FPFCBC #### [facility] [address] [place] [address] Dr. Jonas Sanchez RBC 4.96 106/ul Normal 4.20-5.40 [facility] Comment on above: Performed By: #### H FPFCBC #### [facility] [address] [place] [address] Dr. Jonas Sanchez WBC 5.8 103/ul Normal 4.0-11.0 [facility] Comment on above: Performed By: #### H FPFCBC #### [facility] [address] [place] [address] Dr. Jonas Sanchez [facility] PROFILEon 022 Albumin [Mass/Vol] 4.0 g/dL Normal 3.4-5.0 [facility] Comment on above: Performed By: #### H FPF #### [facility] [address] [place] [address] Dr. Jonas Sanchez Albumin/Globulin [Mass ratio] 1.1 {ratio} Normal [facility] Comment on above: Performed By: #### H FPF #### [facility] [address] [place] [address] Dr. Jonas Sanchez ALP [Catalytic activity/Vol] 80 U/L Normal 46-116 [facility] Comment on above: Performed By: #### H FPF #### [facility] [address] [place] [address] Dr. Jonas Sanchez ALT [Catalytic activity/Vol] 11 U/L Critically low 14-59 [facility] Comment on above: Performed By: #### H FPF #### [facility] [address] [place] [address] Dr. Jonas Sanchez AST [Catalytic activity/Vol] 19 U/L Normal 15-37 [facility] Comment on above: Performed By: #### H FPF #### [facility] [address] [place] [address] Dr. Jonas Sanchez Bilirubin [Mass/Vol] 0.5 mg/dL Normal 0.2-1.0 [facility] Comment on above: Performed By: #### H FPF #### [facility] [address] [place] [address] Dr. Jonas Sanchez Calcium [Mass/Vol] 8.8 mg/dL Normal 8.5-10.1 [facility] Comment on above: Performed By: #### H FPF #### [facility] [address] [place] [address] Dr. Jonas Sanchez Chloride [Moles/Vol] 105 mmol/L Normal 98-107 [facility] Comment on above: Performed By: #### H FPF #### [facility] [address] [place] [address] Dr. Jonas Sanchez CHOL-HDL RATIO NORM SEE BELOW Normal [facility] Comment on above: Result Comment: 3.3 - 4.4 LOW RISK 4.4 - 7.1 AVERAGE RISK 7.1 - 11.0 MODERATE RISK >11.0 HIGH RISK Performed By: #### H FPF #### [facility] [address] [place] [address] Dr. Jonas Sanchez Cholesterol [Mass/Vol] 196 mg/dL Normal <=200 [facility] Comment on above: Performed By: #### H FPF #### [facility] [address] [place] [address] Dr. Jonas Sanchez Cholesterol in HDL [Mass/Vol] 48 mg/dL Normal 40-60 [facility] Comment on above: Performed By: #### H FPF #### [facility] [address] [place] [address] Dr. Jonas Sanchez Cholesterol in LDL [Mass/Vol] 135.2 mg/dL Normal [facility] Comment on above: Performed By: #### H FPF #### [facility] [address] [address] [address] Jonas Sanchez Cholesterol.total/Chol esterol in HDL [Mass ratio] 4.1 {ratio} Normal [facility] Comment on above: Performed By: #### H FPF #### [facility] [address] [address] [address] Jonas Sanchez CO2 [Moles/Vol] 23.6 mmol/L Normal 21.0-32.0 [facility] Comment on above: Performed By: #### H FPF #### [facility] [address] [address] [address] Jonas Sanchez Creatinine [Mass/Vol] 0.89 mg/dL Normal 0.55-1.02 [facility] Comment on above: Performed By: #### H FPF #### [facility] [address] [address] [address] Jonas Sanchez Globulin (S) [Mass/Vol] 3.5 g/dL Normal [facility] Comment on above: Performed By: #### H FPF #### [facility] [address] [address] [address] Jonas Sanchez Glucose [Mass/Vol] 94 mg/dL Normal 74-106 [facility] Comment on above: Performed By: #### H FPF #### [facility] [address] [address] [address] Jonas Sanchez HDL NORMAL > or = 60 mg/dl - LO W CARDIOVASCULAR RISK <40 mg/dl - HIGH CARDIOVASCULAR RISK Normal [facility] Comment on above: Performed By: #### H FPF #### [facility] [address] [address] [address] Jonas Sanchez LDL CALC NORMAL SEE BELOW Normal [facility] Comment on above: Result Comment: <100 mg/dl OPTIMAL 100 - 129 mg/dl NEAR OR ABOVE OPTIMAL 130 - 159 mg/dl BORDERLINE HIGH 160 - 189 mg/dl HIGH >190 mg/dl VERY HIGH Performed By: #### H FPF #### [facility] [address] [address] [address] Jonas Sanchez Potassium [Moles/Vol] 4.0 mmol/L Normal 3.5-5.1 [facility] Comment on above: Performed By: #### H FPF #### [facility] [address] [address] [address] Jonas Sanchez Protein [Mass/Vol] 7.5 g/dL Normal 6.4-8.2 [facility] Comment on above: Performed By: #### H FPF #### [facility] [address] [place] [address] Dr. Jonas Sanchez Sodium [Moles/Vol] 140 mmol/L Normal 136-145 [facility] Comment on above: Performed By: #### H FPF #### [facility] [address] [place] [address] Dr. Jonas Sanchez Triglyceride [Mass/Vol] 64 mg/dL Normal <=150 [facility] Comment on above: Performed By: #### H FPF #### [facility] [address] [place] [address] Dr. Jonas Sanchez TSH 2.892 uIU/mL Normal 0.358-3.740 [facility] Comment on above: Performed By: #### H FPF #### [facility] [address] [place] [address] Dr. Jonas Sanchez Urea nitrogen [Mass/Vol] 19.0 mg/dL Critically high 7.0-18.0 [facility] Comment on above: Performed By: #### H FPF #### [facility] [address] [place] [address] Dr. Jonas Sanchez Urea nitrogen/Creatinine [Mass ratio] 21.3 mg/mg Normal [facility] Comment on above: Performed By: #### H FPF #### [facility] [address] [address] [address] Jonas Sanchez VLDL CALC 12.8 mg/dL Normal [facility] Comment on above: Performed By: #### H FPF #### [facility] [address] [place] [address] Dr. Jonas Sanchez Vital Signs Date Time Vital Sign Value Performing Clinician Facility 12-28-2023 16:00-0500 Body mass index (BMI) [Ratio] 42.59 kg/m2 Kavitha Iglesias PA Work Phone: [facility] 12-28-2023 16:00-0500 Body weight 102.24 kg Kavitha Iglesias PA Work Phone: [facility] 12-28-2023 16:00-0500 Diastolic blood pressure 84 mm[Hg] Kavitha Iglesias PA Work Phone: [facility] 12-28-2023 16:00-0500 Systolic blood pressure 130 mm[Hg] Kavitha Iglesias PA Work Phone: [facility] 10-09-2023 11:22-0500 Diastolic blood pressure 84 mm[Hg] Ashwin Ramos [facility] 10-09-2023 11:22-0500 Heart rate 80 /min Ashwin Ramos [facility] 10-09-2023 11:22-0500 Mean blood pressure 100 mm[Hg] Ashwin Hodgee [facility] 10-09-2023 11:22-0500 Respiratory rate 16 /min Ashwin Hodgee [facility] 10-09-2023 11:22-0500 SaO2% (BldA) [Mass fraction] 98 % Ashwin Hodgee [facility] 10-09-2023 11:22-0500 Systolic blood pressure 131 mm[Hg] Ashwin Hodgee [facility] 10-09-2023 10:30-0500 Diastolic blood pressure 81 mm[Hg] Ashwin Hodgee [facility] 10-09-2023 10:30-0500 Heart rate 89 /min Ashwin Hodgee [facility] 10-09-2023 10:30-0500 Mean blood pressure 98 mm[Hg] Ashwin Hodgee [facility] 10-09-2023 10:30-0500 Respiratory rate 15 /min Ashwin Ramos [facility] 10-09-2023 10:30-0500 SaO2% (BldA) [Mass fraction] 96 % Ashwin Hodgee [facility] 10-09-2023 10:30-0500 Systolic blood pressure 131 mm[Hg] Ashwin Hodgee [facility] 10-09-2023 10:07-0500 gluc 111 mg/dL Ashwin Hodgee [facility] 10-09-2023 10:07-0500 gluc Ashwin Ramos [facility] 10-09-2023 09:41-0500 Body temperature 97.7 [degF] Ashwin Ramos [facility] 10-09-2023 09:41-0500 Diastolic blood pressure 98 mm[Hg] Ashwin Ramos [facility] 10-09-2023 09:41-0500 Heart rate 100 /min Ashwin Ramos [facility] 10-09-2023 09:41-0500 Respiratory rate 16 /min Ashwin Ramos [facility] 10-09-2023 09:41-0500 SaO2% (BldA) [Mass fraction] 97 % Ashwin Ramos [facility] 10-09-2023 09:41-0500 Systolic blood pressure 170 mm[Hg] Ashwin Ramos [facility] 05-05-2023 07:42-0400 Diastolic blood pressure 84 mm[Hg] Sherin [employer] [facility] 05-05-2023 07:42-0400 Heart rate 65 /min Sherin [employer] [facility] 05-05-2023 07:42-0400 Mean blood pressure 103 mm[Hg] Sherin Durand [facility] 05-05-2023 07:42-0400 Respiratory rate 12 /min Sherin Durand [facility] 05-05-2023 07:42-0400 Systolic blood pressure 141 mm[Hg] Sherin Durand [facility] 03-22-2023 08:10-0400 Heart rate 69 /min Denny Zumbar [facility] 03-22-2023 08:10-0400 SaO2% (BldA) [Mass fraction] 99 % Denny Zumbar [facility] 03-22-2023 08:10-0400 Diastolic blood pressure 71 mm[Hg] Denny Zumbar [facility] 03-22-2023 08:10-0400 Mean blood pressure 91 mm[Hg] Denny Zumbar [facility] 03-22-2023 08:10-0400 Systolic blood pressure 131 mm[Hg] Denny Zumbar [facility] 03-22-2023 08:09-0400 Respiratory rate 16 /min Denny Zumbar [facility] 03-22-2023 08:00-0400 Diastolic blood pressure 80 mm[Hg] Denny Zumbar [facility] 03-22-2023 08:00-0400 Heart rate 80 /min Denny Zumbar [facility] 03-22-2023 08:00-0400 Respiratory rate 12 /min Denny Zumbar [facility] 03-22-2023 08:00-0400 Systolic blood pressure 130 mm[Hg] Denny Zumbar [facility] 03-22-2023 07:13-0400 Heart rate 85 /min Denny Zumbar [facility] 03-22-2023 07:13-0400 SaO2% (BldA) [Mass fraction] 99 % Denny Zumbar [facility] 03-22-2023 07:13-0400 Body temperature 98.06 [degF] Denny Zumbar [facility] 03-22-2023 07:12-0400 Diastolic blood pressure 52 mm[Hg] Denny Zumbar [facility] 03-22-2023 07:12-0400 Mean blood pressure 72 mm[Hg] Denny Zumbar [facility] 03-22-2023 07:12-0400 Systolic blood pressure 113 mm[Hg] Denny Zumbar [facility] 03-22-2023 07:08-0400 Respiratory rate 14 /min Denny Zumbar [facility] 11-23-2022 09:58-0500 Heart rate 69 /min Denny Zumbar [facility] 11-23-2022 09:58-0500 SaO2% (BldA) [Mass fraction] 99 % Denny Zumbar [facility] 11-23-2022 09:58-0500 Diastolic blood pressure 81 mm[Hg] Denny Zumbar [facility] 11-23-2022 09:58-0500 Mean blood pressure 95 mm[Hg] Denny Zumbar [facility] 11-23-2022 09:58-0500 Systolic blood pressure 125 mm[Hg] Denny Zumbar [facility] 11-23-2022 09:58-0500 Respiratory rate 16 /min Denny Zumbar [facility] 11-23-2022 09:48-0500 Diastolic blood pressure 86 mm[Hg] Denny Zumbar [facility] 11-23-2022 09:48-0500 Heart rate 80 /min Denny Zumbar [facility] 11-23-2022 09:48-0500 Respiratory rate 20 /min Denny Zumbar [facility] 11-23-2022 09:48-0500 SaO2% (BldA) [Mass fraction] 98 % Denny Zumbar [facility] 11-23-2022 09:48-0500 Systolic blood pressure 129 mm[Hg] Denny Zumbar [facility] 11-23-2022 09:33-0500 Heart rate 79 /min Denny Zumbar [facility] 11-23-2022 09:33-0500 SaO2% (BldA) [Mass fraction] 100 % Denny Zumbar [facility] 11-23-2022 09:32-0500 Diastolic blood pressure 88 mm[Hg] Denny Zumbar [facility] 11-23-2022 09:32-0500 Mean blood pressure 102 mm[Hg] Denny Zumbar [facility] 11-23-2022 09:32-0500 Systolic blood pressure 132 mm[Hg] Denny Zumbar [facility] 11-23-2022 09:31-0500 Body temperature 98.06 [degF] Denny Zumbar [facility] 11-23-2022 09:31-0500 Respiratory rate 18 /min Denny Zumbar [facility] 08-05-2022 12:44-0400 Diastolic blood pressure 76 mm[Hg] Sherin Durand [facility] 08-05-2022 12:44-0400 Heart rate 80 /min Sherin Durand [facility] 08-05-2022 12:44-0400 Mean blood pressure 93 mm[Hg] Sherin Durand [facility] 08-05-2022 12:44-0400 Respiratory rate 18 /min Sherin Durand [facility] 08-05-2022 12:44-0400 Systolic blood pressure 128 mm[Hg] Sherin Durand [facility] 07-06-2022 13:59-0400 Diastolic blood pressure 76 mm[Hg] Denny Zumbar [facility] 07-06-2022 13:59-0400 Heart rate 82 /min Denny Zumbar [facility] 07-06-2022 13:59-0400 Mean blood pressure 86 mm[Hg] Denny Zumbar [facility] 07-06-2022 13:59-0400 SaO2% (BldA) [Mass fraction] 99 % Denny Zumbar [facility] 07-06-2022 13:59-0400 Systolic blood pressure 106 mm[Hg] Denny Zumbar [facility] 07-06-2022 13:59-0400 Respiratory rate 14 /min Denny Zumbar [facility] 07-06-2022 13:47-0400 Diastolic blood pressure 86 mm[Hg] Denny Zumbar [facility] 07-06-2022 13:47-0400 Heart rate 81 /min Denny Zumbar [facility] 07-06-2022 13:47-0400 Respiratory rate 12 /min Denny Zumbar [facility] 07-06-2022 13:47-0400 SaO2% (BldA) [Mass fraction] 98 % Denny Zumbar [facility] 07-06-2022 13:47-0400 Systolic blood pressure 137 mm[Hg] Denny Zumbar [facility] 07-06-2022 12:47-0400 Body temperature 98.42 [degF] Denny Zumbar [facility] 07-06-2022 12:47-0400 Diastolic blood pressure 83 mm[Hg] Denny Zumbar [facility] 07-06-2022 12:47-0400 Heart rate 85 /min Denny Zumbar [facility] 07-06-2022 12:47-0400 Mean blood pressure 100 mm[Hg] Denny Zumbar [facility] 07-06-2022 12:47-0400 Respiratory rate 12 /min Denny Zumbar [facility] 07-06-2022 12:47-0400 SaO2% (BldA) [Mass fraction] 93 % Denny Zumbar [facility] 07-06-2022 12:47-0400 Systolic blood pressure 135 mm[Hg] Denny Zumbar [facility] 05-12-2022 09:35-0400 Diastolic blood pressure 85 mm[Hg] Denny Zumbar [facility] 05-12-2022 09:35-0400 Heart rate 65 /min Denny Zumbar [facility] 05-12-2022 09:35-0400 Mean blood pressure 102 mm[Hg] Denny Zumbar [facility] 05-12-2022 09:35-0400 Respiratory rate 16 /min Denny Zumbar [facility] 05-12-2022 09:35-0400 Systolic blood pressure 136 mm[Hg] Denny Zumbar [facility] 04-08-2022 10:34-0400 Blood Pressure Location DUARTE BERNADINE [facility] 04-08-2022 10:34-0400 Diastolic blood pressure 77 mm[Hg] DUARTE BERNADINE [facility] 04-08-2022 10:34-0400 Heart rate 61 /min DUARTE BERNADINE [facility] 04-08-2022 10:34-0400 Mean blood pressure 88 mm[Hg] DUARTE BERNADINE [facility] 04-08-2022 10:34-0400 Respiratory rate 16 /min DUARTE BERNADINE [facility] 04-08-2022 10:34-0400 SaO2% (BldA) [Mass fraction] 96 % DUARTE BERNADINE [facility] 04-08-2022 10:34-0400 Systolic blood pressure 109 mm[Hg] DURATE BERNADINE [facility] 04-08-2022 09:48-0400 Blood Pressure Location DUARTE BERNADINE [facility] 04-08-2022 09:48-0400 Diastolic blood pressure 70 mm[Hg] DUARTE BERNADINE [facility] 04-08-2022 09:48-0400 Heart rate 61 /min DUARTE BERNADINE [facility] 04-08-2022 09:48-0400 Mean blood pressure 82 mm[Hg] DUARTE BERNADINE [facility] 04-08-2022 09:48-0400 Respiratory rate 20 /min DUARTE BERNADINE [facility] 04-08-2022 09:48-0400 SaO2% (BldA) [Mass fraction] 98 % DUARTE BERNADINE [facility] 04-08-2022 09:48-0400 Systolic blood pressure 105 mm[Hg] DUARTE BERNADINE [facility] 04-08-2022 09:44-0400 Body temperature 96.8 [degF] DUARTE BERNADINE [facility] 04-08-2022 09:35-0400 Blood Pressure Location DUARTE BERNADINE [facility] 04-08-2022 09:35-0400 Body temperature 97.7 [degF] DUARTE BERNADINE [facility] 04-08-2022 09:35-0400 Diastolic blood pressure 68 mm[Hg] DUARTE BERNADINE [facility] 04-08-2022 09:35-0400 Heart rate 64 /min DUARTE BERNADINE [facility] 04-08-2022 09:35-0400 Respiratory rate 16 /min DUARTE BERNADINE [facility] 04-08-2022 09:35-0400 SaO2% (BldA) [Mass fraction] 97 % DUARTE BERNADINE [facility] 04-08-2022 09:35-0400 Systolic blood pressure 102 mm[Hg] DUARTE BERNADINE [facility] 04-08-2022 09:25-0400 Respiratory rate 9 /min DUARTE BERNADINE [facility] 04-08-2022 09:20-0400 Respiratory rate 11 /min DUARTE BERNADINE [facility] 04-08-2022 09:10-0400 Body temperature 97.16 [degF] DUARTE BERNADINE [facility] 04-08-2022 06:15-0400 Mean blood pressure 91 mm[Hg] DUARTE BERNADINE [facility] 04-08-2022 06:15-0400 Heart rate 86 /min DUARTE BERNADINE [facility] 04-08-2022 06:14-0400 Body temperature 97.7 [degF] DUARTE BERNADINE [facility] 04-08-2022 06:14-0400 Respiratory rate 20 /min DUARTE BERNADINE [facility] Encounters Encounter Date Encounter Type Care Provider Facility Start: 01-15-2024 End: 01-16-2024 [facility] Facility:[facility] Start: 01-15-2024 End: 01-15-2024 Patient encounter procedure SELF REFERRAL [facility] Start: 12-28-2023 End: 12-28-2023 ambulatory KAVITHA IGLESIAS Not Available Start: 12-28-2023 End: 12-28-2023 Patient encounter procedure Kavitha BANERJEE Work Phone: [facility] Work Phone: Start: 12-28-2023 End: 12-28-2023 Periodic preventive med est patient 40-64yrs Kavitha BANERJEE Work Phone: [facility] Comment on above: Well woman exam with routine gynecological exam; Breast cancer screening by mammogram; Pelvic pain in female Start: 12-28-2023 Clinisync Result Encounter Kavitha BANERJEE Work Phone: [facility] Unsolicited Start: 12-28-2023 Clinisync Result Encounter Kavitha BANERJEE Work Phone: [facility] Unsolicited Start: 12-25-2023 End: 12-25-2023 ambulatory SUNNI A FELTER Not Available Start: 11-13-2023 End: 11-13-2023 ambulatory SUNNI A FELTER Not Available Start: 10-09-2023 End: 10-09-2023 Emergency department patient visit Ashwin Ramos Facility:[facility] Start: 10-09-2023 End: 10-09-2023 Emergency department patient visit Ashwin Ramos [facility] Start: 08-03-2023 ambulatory Maia M. Roxye Facility:[facility] Start: 05-08-2023 End: 05-09-2023 ambulatory Maia M. Lue Facility:[facility] Start: 05-05-2023 End: 05-06-2023 ambulatory Tash Recio Facility:[facility] Start: 05-05-2023 End: 05-05-2023 Pain Management Sherin Durand [facility] Start: 03-22-2023 End: 03-23-2023 ambulatory Denny Barber Facility:[facility] Start: 03-22-2023 End: 03-22-2023 Pain Management Denny Barber [facility] Start: 03-14-2023 End: 03-15-2023 ambulatory XXXX NONE Facility:[facility] Start: 03-13-2023 End: 03-13-2023 Emergency department patient visit Ashwin Ramos Facility:[facility] Start: 02-13-2023 End: 02-14-2023 ambulatory Maia Hassan Facility:[facility] Start: 02-13-2023 End: 02-13-2023 Patient encounter procedure Maia Hassan [facility] Start: 11-25-2022 End: 11-25-[address] BRETT HINOJOSA Facility: Start: 11-23-2022 End: 11-23-2022 Pain Management eDnny Barber [facility] Start: 10-04-2022 End: 10-04-2022 ambulatory Tash Recio Facility:[facility] Start: 10-04-2022 End: 10-04-2022 ambulatory MD Tash Recio Work Phone: [facility] Work Phone: Start: 10-04-2022 End: 10-04-2022 Departed Referred MD Tash Recio Work Phone: [facility] [place] Start: 09-27-2022 End: 09-27-2022 ambulatory Brett Scott Facility:[facility] Start: 09-27-2022 End: 09-27-2022 ambulatory MD Tash Recio Work Phone: [facility] Work Phone: Start: 09-27-2022 End: 09-27-2022 Departed Referred MD Tash Recio Work Phone: [facility] [place] Start: 08-05-2022 End: 08-05-2022 Pain Management Sherin Durand [facility] Start: 07-14-2022 End: 07-15-[address] TASH RECIO Facility:[facility] Start: 07-06-2022 End: 07-06-2022 Pain Management Denny Barber [facility] Start: 05-23-2022 End: 05-23-2022 Patient encounter procedure Denny Barber [facility] Start: 05-12-2022 End: 05-12-2022 Pain Management Denny Barber [facility] Start: 04-08-2022 End: 04-08-2022 Admission to same day surgery [place] DUARET BERNADINE [facility] Start: 11-28-2021 End: 12-19-2021 ambulatory DUARTE BERNADINE Facility:[facility] Procedures Date Procedure Procedure Detail Performing Clinician Start: 12-28-2023 IGP,APTIMA HPV,AGE GDLN Kavitha BANERJEE Work Phone: Start: 03-22-2023 Injection of nerve r oot of lumbar spine using fluoroscopic guidance Sherin Durand Comment on above: B/L TFESI L4-5 100% Relief Start: 12-13-2022 Structure of eye pro per (body structure) Maia Hassan Start: 11-23-2022 Mammography Kavitha BANERJEE Work Phone: Start: 11-23-2022 Epidural injection o f lumbar spine using fluoroscopic guidance Maia Hassan Comment on above: B/l L4/5 TFESI: 100% relief Start: 07-06-2022 Injection of nerve r oot of lumbar spine using fluoroscopic guidance Sherin Duradn Comment on above: 90% relief Start: 04-08-2022 Magnetic resonance imaging DUARTE COLINDRES Start: 11-27-2005 Partial hysterectomy ALLY COLNIDRES History of operative procedure on knee DUARTE COLINDRES Plan of Treatment Date Care Activity Detail Author Start: 01-01-2025 End: 01-01-2025 Patient encounter procedure 01/01/2025 3:50 PM EST Office Visit [facility] [address] [place] [address] Kavitha Iglesias PA [address] [place], [place] [id number] [facility] Start: 05-21-2024 End: 05-21-2024 Patient encounter procedure 05/21/2024 10:10 AM EDT Office Visit [facility] [address] [place] [address] uSnni Walker, INDUSTRIAL ORGANIZATION MANAGER-SET MAKING MACHINE OPERATOR [address] [place] [address] [facility] Start: 01-15-2024 End: 01-15-2024 Professional / ancillary services management 01/15/2024 1:00 PM EST Ancillary Procedure [facility] [address] [place] [address] [facility] Start: 12-28-2023 End: 02-25-2025 MG Breast - bilateral Screening Bilateral screening mammogram Imaging Routine Breast cancer screening by mammogram Expected: 12/28/2023, Expires: 02/25/2025 [facility] Work Phone: Comment on above: Expected: 12/28/2023 , Expires: 02/25/2025 Start: 12-28-2023 End: 12-28-2024 US for US PELVIS-TRANSVAG IF INDICATED Imaging Routine Pelvic pain in female Expected: 12/28/2023 (Approximate), Expires: 12/28/2024 [facility] Comment on above: Expected: 12/28/2023 (Approximate), Expires: 12/28/2024 Start: 11-23-2023 Screening for malign ant neoplasm of breast Mammogram [facility] Start: 1990 Screening for malign ant neoplasm of cervix [facility] Start: 1981 Screening for malign ant neoplasm of cervix Pap Smear [facility] Start: 1960 Screening for malign ant neoplasm of colon [facility] THIN PREP TIS PAP AN D HR HPV DNA THIN PREP TIS PAP AND HR HPV DNA Pathology and Cytology Routine Well woman exam with routine gynecological exam Ordered: 12/28/2023 [facility] Comment on above: Ordered: 12/28/2023 Immunizations Immunization Date Immunization Notes Care Provider Moreno kunz 03-12-2021 SARS-CoV-2 (COVID-19 ) mRNA-1273 vaccine DUARTE BERNADINE [facility] 02-10-2021 SARS-CoV-2 (COVID-19 ) mRNA-1273 vaccine DUARTE BERNADINE [facility] Payers Date Payer Category Payer Worker's Compensation 2022 Self-pay [id number] 2021 Unknown BCBS BCBS [id number] 2021-Present [phone] [address] [place] [address] [id number] 1960 Unknown [id number] 2.16.840.1.255924.3.579.2.5 93 1960 Unknown [id number] 2.16.840.1.797190.3.579.2.5 93 1960 Unknown [id number] 2.16.840.1.495720.3.579.2.1 259 1960 Unknown [id number] 2.16.840.1.541378.3.579.2.1 259 1960 Unknown [id number] 2.16.840.1.933450.3.579.2.1 259 1960 Unknown [id number] 2.16.840.1.702385.3.579.2.7 27 1960 Unknown [id number] 2.16.840.1.648407.3.579.2.7 27 1960 Unknown [id number] 2.16.840.1.354072.3.579.2.7 27 1960 Unknown [id number] 2.16.840.1.035576.3.579.2.7 27 1960 Unknown [id number] 2.16.840.1.067643.3.579.2.7 27 1960 Unknown [id number] 2.16.840.1.969149.3.579.2.7 27 1960 Unknown [id number] 2.16.840.1.599059.3.579.2.7 27 1960 Unknown [id number] 2.16.840.1.926026.3.579.2.7 27 1960 Unknown [id number] 2.16.840.1.684660.3.579.2.7 27 1959 Self-pay [id number] 1959 Unknown [id number] 1959 Unknown Unknown [place] [employer]/BS [id number] Unknown [id number] 2.16.840.1.541886.3.579.2.5 31 Unknown [id number] 2.16.840.1.024299.3.579.2.5 31 Unknown [id number] 2.16.840.1.515116.3.579.2.5 93 Social History Date Type Detail Facility Start: 11-24-2021 End: 03-14-2023 Tobacco smoking status Never smoked tobacco (finding) [facility] Tobacco smoking status Never [facility] Start: 12-25-2023 Sex Assigned At Female F [facility] Start: 1960 Sex Assigned At Female F [facility] Start: 11-13-2023 Tobacco use and exposure Smokeless tobacco non-user [facility] Start: 12-28-2023 Alcohol intake Lifetime non-d kaya (finding) [facility] Start: 12-25-2023 History of Social function [facility] Start: 1960 Sex Assigned At Not on file N [facility] Functional Status Date Assessment Result Facility 10-09-2023 Functional Status N/A [facility] 05-05-2023 Functional Status N/A [facility] 03-22-2023 Functional Status N/A [facility] 11-23-2022 Functional Status N/A [facility] 08-05-2022 Functional Status N/A [facility] 07-06-2022 Functional Status N/A [facility] 05-12-2022 Functional Status N/A [facility] Clinical Notes 04-08-2022 to 12-28-2023 LAVONNE Tesfaye - 12/28/2023 3:50 PM EST Note Date & Type Note Facility 12-28-2023 History of Presen t illness Narrative Reason for Appointment: Patient ID: Clarice Dickinson is a 63 y.o. female who presents for Well Women Visit Patient presents today for Annual Exam appointment. Current Medications: has a current medication list which includes the following prescription(s): vitamin c and aspirin. 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 HENT: Negative. Eyes: Negative. Respiratory: Negative. Cardiovascular: Negative. Gastrointestinal: Negative. Genitourinary: Negative. Musculoskeletal: Negative. Skin: Negative. Neurological: Negative. All other systems reviewed and are negative. Hematological: Negative. Endocrine: Negative. Allergic/Immunologic: Negative. Objective Physical Exam Constitutional: Appearance: Normal appearance. She is well-developed. Genitourinary: Vulva normal. Vaginal cuff intact. Right Adnexa: not tender and no mass present. Left Adnexa: not tender and no mass present. Cervix is not absent. Uterus is not absent. Breasts: Breasts are soft. Right: Normal. Left: Normal. Cardiovascular: Rate and Rhythm: Normal rate and regular rhythm. Abdominal: General: Bowel sounds are normal. There is no distension. Palpations: Abdomen is soft. Tenderness: There is no abdominal tenderness. There is no guarding or rebound. Musculoskeletal: General: No swelling. Normal range of motion. Right lower leg: No edema. Left lower leg: No edema. Neurological: Mental Status: She is alert and oriented to person, place, and time. Skin: General: Skin is warm and dry. Psychiatric: Mood and Affect: Mood normal. Behavior: Behavior normal. Vitals and nursing note reviewed. Exam conducted with a middle school history teacher present. Vitals: Estimated body mass index is 42.59 kg/m as calculated from the following: Height as of 11/30/22: 5' 1 . Weight as of this encounter: 225 lb 6.4 oz. BP: 130/84 No LMP recorded. Patient has had a hysterectomy. Assessment/Plan Encounter Diagnoses Name Primary? Well woman exam with routine gynecological exam Breast cancer screening by mammogram Patient presents today for an annual exam. Patient states she is doing well and has no complaints. Pap was obtained without difficulty and patient given mammogram order to have scheduled/obtained. Patient does have some right sided pain and its there every now and then at her hip and nothing was felt on exam, ordered ultrasound at this time. Follow Up: Patient is to return in one year for annual unless needed otherwise. Documented by Lani Rosales LPN on behalf of: LAVONNE Tesfaye documented in this encounter [facility] 10-09-2023 Hospital Discharg e instructions Patient Education 10/09/2023 11:23:07 Managing Anxiety, Adult Managing Anxiety, Adult After being diagnosed with anxiety, you may be relieved to know why you have felt or behaved a certain way. You may also feel overwhelmed about the treatment ahead and what it will mean for your life. With care and support, you can manage this condition. How to manage lifestyle changes Managing stress and anxiety Stress is your body's reaction to life changes and events, both good and bad. Most stress will last just a few hours, but stress can be ongoing and can lead to more than just stress. Although stress can play a major role in anxiety, it is not the same as anxiety. Stress is usually caused by something external, such as a deadline, test, or competition. Stress normally passes after the triggering event has ended. Anxiety is caused by something internal, such as imagining a terrible outcome or worrying that something will go wrong that will devastate you. Anxiety often does not go away even after the triggering event is over, and it can become long-term (chronic) worry. It is important to understand the differences between stress and anxiety and to manage your stress effectively so that it does not lead to an anxious response. Talk with your health care provider or a counselor to learn more about reducing anxiety and stress. He or she may suggest tension reduction techniques, such as: Music therapy. Spend time creating or listening to music that you enjoy and that inspires you. Mindfulness-based meditation. Practice being aware of your normal breaths while not trying to control your breathing. It can be done while sitting or walking. Centering prayer. This involves focusing on a word, phrase, or sacred image that means something to you and brings you peace. Deep breathing. To do this, expand your stomach and inhale slowly through your nose. Hold your breath for 3 5 seconds. Then exhale slowly, letting your stomach muscles relax. Self-talk. Learn to notice and identify thought patterns that lead to anxiety reactions and change those patterns to thoughts that feel peaceful. Muscle relaxation. Taking time to tense muscles and then relax them. Choose a tension reduction technique that fits your lifestyle and personality. These techniques take time and practice. Set aside 5 15 minutes a day to do them. Therapists can offer counseling and training in these techniques. The training to help with anxiety may be covered by some insurance plans. Other things you can do to manage stress and anxiety include: Keeping a stress diary. This can help you learn what triggers your reaction and then learn ways to manage your response. Thinking about how you react to certain situations. You may not be able to control everything, but you can control your response. Making time for activities that help you relax and not feeling guilty about spending your time in this way. Doing visual imagery. This involves imagining or creating mental pictures to help you relax. Practicing yoga. Through yoga poses, you can lower tension and promote relaxation. Medicines Medicines can help ease symptoms. Medicines for anxiety include: Antidepressant medicines. These are usually prescribed for long-term daily control. Anti-anxiety medicines. These may be added in severe cases, especially when panic attacks occur. Medicines will be prescribed by a health care provider. When used together, medicines, psychotherapy, and tension reduction techniques may be the most effective treatment. Relationships Relationships can play a big part in helping you recover. Try to spend more time connecting with trusted friends and family members. Consider going to couples counseling if you have a partner, taking family education classes, or going to family therapy. Therapy can help you and others better understand your condition. How to recognize changes in your anxiety Everyone responds differently to treatment for anxiety. Recovery from anxiety happens when symptoms decrease and stop interfering with your daily activities at home or work. This may mean that you will start to: Have better concentration and focus. Worry will interfere less in your daily thinking. Sleep better. Be less irritable. Have more energy. Have improved memory. It is also important to recognize when your condition is getting worse. Contact your health care provider if your symptoms interfere with home or work and you feel like your condition is not improving. Follow these instructions at home: Activity Exercise. Adults should do the following: ?Exercise for at least 150 minutes each week. The exercise should increase your heart rate and make you sweat (moderate-intensity exercise). ?Strengthening exercises at least twice a week. Get the right amount and quality of sleep. Most adults need 7 9 hours of sleep each night. Lifestyle Eat a healthy diet that includes plenty of vegetables, fruits, whole grains, low-fat dairy products, and lean protein. ?Do not eat a lot of foods that are high in fats, added sugars, or salt (sodium). Make choices that simplify your life. Do not use any products that contain nicotine or tobacco. These products include cigarettes, chewing tobacco, and vaping devices, such as e-cigarettes. If you need help quitting, ask your health care provider. Avoid caffeine, alcohol, and certain kdwx-vfc-tigohew cold medicines. These may make you feel worse. Ask your pharmacist which medicines to avoid. General instructions Take ecxw-xvf-hnhnoji and prescription medicines only as told by your health care provider. Keep all follow-up visits. This is important. Where to find support You can get help and support from these sources: Self-help groups. Online and community organizations. A trusted spiritual leader. Couples counseling. Family education classes. Family therapy. Where to find more information You may find that joining a support group helps you deal with your anxiety. The following sources can help you locate counselors or support groups near you: Mental Health [place]: www.mentalhealthamerica.net Anxiety and Depression Association of [place] (ADAA): www.adaa.org National [employer] Mental Illness (MARYSOL): www.marysol.org Contact a health care provider if: You have a hard time staying focused or finishing daily tasks. You spend many hours a day feeling worried about everyday life. You become exhausted by worry. You start to have headaches or frequently feel tense. You develop chronic nausea or diarrhea. Get help right away if: You have a racing heart and shortness of breath. You have thoughts of hurting yourself or others. If you ever feel like you may hurt yourself or others, or have thoughts about taking your own life, get help right away. Go to your nearest emergency department or: Call your local emergency services (955 in the [place] Call a suicide crisis helpline, such as the National Suicide Prevention Lifeline at or 287 in the [place] This is open 24 hours a day in the [place] Text the Crisis Text Line at 638856 (in the [place] Summary Taking steps to learn and use tension reduction techniques can help calm you and help prevent triggering an anxiety reaction. When used together, medicines, psychotherapy, and tension reduction techniques may be the most effective treatment. Family, friends, and partners can play a big part in supporting you. This information is not intended to replace advice given to you by your health care provider. Make sure you discuss any questions you have with your health care provider. Document Revised: 06/08/2022 Document Reviewed: 03/06/2022 [employer] Patient Education 2022 [employer]. 10/09/2023 11:23:07 Hypertension, Adult Hypertension, Adult High blood pressure (hypertension) is when the force of blood pumping through the arteries is too strong. The arteries are the blood vessels that carry blood from the heart throughout the body. Hypertension forces the heart to work harder to pump blood and may cause arteries to become narrow or stiff. Untreated or uncontrolled hypertension can lead to a heart attack, heart failure, a stroke, kidney disease, and other problems. A blood pressure reading consists of a higher number over a lower number. Ideally, your blood pressure should be below 120/80. The first ( top ) number is called the systolic pressure. It is a measure of the pressure in your arteries as your heart beats. The second ( bottom ) number is called the diastolic pressure. It is a measure of the pressure in your arteries as the heart relaxes. What are the causes? The exact cause of this condition is not known. There are some conditions that result in high blood pressure. What increases the risk? Certain factors may make you more likely to develop high blood pressure. Some of these risk factors are under your control, including: Smoking. Not getting enough exercise or physical activity. Being overweight. Having too much fat, sugar, calories, or salt (sodium) in your diet. Drinking too much alcohol. Other risk factors include: Having a personal history of heart disease, diabetes, high cholesterol, or kidney disease. Stress. Having a family history of high blood pressure and high cholesterol. Having obstructive sleep apnea. Age. The risk increases with age. What are the signs or symptoms? High blood pressure may not cause symptoms. Very high blood pressure (hypertensive crisis) may cause: Headache. Fast or irregular heartbeats (palpitations). Shortness of breath. Nosebleed. Nausea and vomiting. Vision changes. Severe chest pain, dizziness, and seizures. How is this diagnosed? This condition is diagnosed by measuring your blood pressure while you are seated, with your arm resting on a flat surface, your legs uncrossed, and your feet flat on the floor. The cuff of the blood pressure monitor will be placed directly against the skin of your upper arm at the level of your heart. Blood pressure should be measured at least twice using the same arm. Certain conditions can cause a difference in blood pressure between your right and left arms. If you have a high blood pressure reading during one visit or you have normal blood pressure with other risk factors, you may be asked to: Return on a different day to have your blood pressure checked again. Monitor your blood pressure at home for 1 week or longer. If you are diagnosed with hypertension, you may have other blood or imaging tests to help your health care provider understand your overall risk for other conditions. How is this treated? This condition is treated by making healthy lifestyle changes, such as eating healthy foods, exercising more, and reducing your alcohol intake. You may be referred for counseling on a healthy diet and physical activity. Your health care provider may prescribe medicine if lifestyle changes are not enough to get your blood pressure under control and if: Your systolic blood pressure is above 130. Your diastolic blood pressure is above 80. Your personal target blood pressure may vary depending on your medical conditions, your age, and other factors. Follow these instructions at home: Eating and drinking Eat a diet that is high in fiber and potassium, and low in sodium, added sugar, and fat. An example of this eating plan is called the DASH diet. DASH stands for Dietary Approaches to Stop Hypertension. To eat this way: ?Eat plenty of fresh fruits and vegetables. Try to fill one half of your plate at each meal with fruits and vegetables. ?Eat whole grains, such as whole-wheat pasta, brown rice, or whole-grain bread. Fill about one fourth of your plate with whole grains. ?Eat or drink low-fat dairy products, such as skim milk or low-fat yogurt. ?Avoid fatty cuts of meat, processed or cured meats, and poultry with skin. Fill about one fourth of your plate with lean proteins, such as fish, chicken without skin, beans, eggs, or tofu. ?Avoid pre-made and processed foods. These tend to be higher in sodium, added sugar, and fat. Reduce your daily sodium intake. Many people with hypertension should eat less than 1,500 mg of sodium a day. Do not drink alcohol if: ?Your health care provider tells you not to drink. ?You are , may be , or are planning to become . If you drink alcohol: ?Limit how much you have to: ?0 1 drink a day for women. ?0 2 drinks a day for men. ?Know how much alcohol is in your drink. In the [place] one drink equals one 12 oz bottle of beer (355 mL), one 5 oz glass of wine (148 mL), or one 1 oz glass of hard liquor (44 mL). Lifestyle Work with your health care provider to maintain a healthy body weight or to lose weight. Ask what an ideal weight is for you. Get at least 30 minutes of exercise that causes your heart to beat faster (aerobic exercise) most days of the week. Activities may include walking, swimming, or biking. Include exercise to strengthen your muscles (resistance exercise), such as Pilates or lifting weights, as part of your weekly exercise routine. Try to do these types of exercises for 30 minutes at least 3 days a week. Do not use any products that contain nicotine or tobacco. These products include cigarettes, chewing tobacco, and vaping devices, such as e-cigarettes. If you need help quitting, ask your health care provider. Monitor your blood pressure at home as told by your health care provider. Keep all follow-up visits. This is important. Medicines Take gvfn-mru-zabeggy and prescription medicines only as told by your health care provider. Follow directions carefully. Blood pressure medicines must be taken as prescribed. Do not skip doses of blood pressure medicine. Doing this puts you at risk for problems and can make the medicine less effective. Ask your health care provider about side effects or reactions to medicines that you should watch for. Contact a health care provider if you: Think you are having a reaction to a medicine you are taking. Have headaches that keep coming back (recurring). Feel dizzy. Have swelling in your ankles. Have trouble with your vision. Get help right away if you: Develop a severe headache or confusion. Have unusual weakness or numbness. Feel faint. Have severe pain in your chest or abdomen. Vomit repeatedly. Have trouble breathing. These symptoms may be an emergency. Get help right away. Call 911. Do not wait to see if the symptoms will go away. Do not drive yourself to the hospital. Summary Hypertension is when the force of blood pumping through your arteries is too strong. If this condition is not controlled, it may put you at risk for serious complications. Your personal target blood pressure may vary depending on your medical conditions, your age, and other factors. For most people, a normal blood pressure is less than 120/80. Hypertension is treated with lifestyle changes, medicines, or a combination of both. Lifestyle changes include losing weight, eating a healthy, low-sodium diet, exercising more, and limiting alcohol. This information is not intended to replace advice given to you by your health care provider. Make sure you discuss any questions you have with your health care provider. Document Revised: 09/20/2022 Document Reviewed: 09/20/2022 [employer] Patient Education 2022 [employer]. Follow Up Care 10/09/2023 09:39:36 With:Tash Recio Address: [address] [place] [address] Business (1) When:10/12/2023 11:08:34 [facility] 05-08-2023 Note [id number] [facility] 05-08-2023 Note Cystoscopy ? Voiding after the procedure: there may be some pain, burning, urgency, frequency and blood tinged urine following the procedure. These symptoms usually resolve within 2-5 days. Drink the amount of fluid it takes to keep the urine pink to yellow or clear in color. Drinking enough water and fluids will help to ease any discomfort after your procedure. ? If you are having problems that seem out of the ordinary, please call. ? If unable to contact your physician and you feel it is an emergency, go to the nearest emergency room or call 911 ? Diet ? you may resume your normal diet. ? Activity ? you may resume your normal activities ? Call if you have a fever over 100 degrees. [facility] 05-05-2023 Evaluation + Plan note Extrac christiana from: Title:Pain Managment Follow up Author:Sherin Charles Date:05/05/23 Impression and Plan Patient is a 63-year-old female. She has a past medical history significant for a [facility] claim. The approved diagnosis code- S35.5XXA sprain of ligaments of the lumbar spine. She underwent recent repeat bilateral L4 5 transforaminal epidural steroid injection. This was done on 03/22/2023. And she has obtained 100% relief. At this time, she is doing well. She is comfortable and happy. She is able to walk and stand without problem. She is overall very pleased with how much relief she has obtained. At this time, she is going to follow-up in 3 months for reevaluation. Call the clinic sooner if necessary. She will call should she require anything from our services. CAROLYN score: 2% Future Appointments Appointment Date:05/08/2023 09:00:00 AM Scheduled Provider: Location:[facility] Appointment Type:Urology FT [facility]04-26-2023 Evaluation + Plan noteExtracted from: Title:Clinical Document Author:Hector Barber MD Date:03/22/23 SURGERY DATE: 03/22/2023 DIAGNOSIS: Lumbar sprain OPERATION: Bilateral lumbar transforaminal epidural steroid injection under fluoroscopic guidance of the L4 nerve roots at the L4-L5 foramina SOLUTION USED: 1 mL of 2% lidocaine, 3 mL of normal saline and 1 mL of Kenalog 40 mg, 5 mL total, 2.5 mL per site; contrast was 1 mL of Isovue per site; local anesthetic was 2 mL of lidocaine 1% per site ANESTHESIA: Local COMPLICATIONS: None PROCEDURE: After informed consent was obtained, the patient was brought to the Operating Room and placed in the prone position. The area in question was prepped and draped in a sterile fashion. An ipsilateral oblique fluoroscopic view of the lumbar spine was obtained and after a local anesthetic was administered into the skin, a 22 gauge Chiba needle was inserted into the skin and advanced to the 6 o'clock position beneath the left L4 pedicle under intermittent fluoroscopic guidance. Proper needle position was confirmed via AP and lateral fluoroscopy. Contrast was administered under live fluoroscopy in both views and demonstrated appropriate epidural and nerve root uptake and the absence of any intravascular or intrathecal spread. The local anesthetic steroid solution was injected incrementally. The needle was removed. Bleeding was nil. The procedure was repeated in the same manner at the same level on the opposite side. The patient tolerated the procedure well and was transferred to the Recovery Room in good condition. Denny Barber M.D. Future Appointments Appointment Date:05/05/2023 07:30:00 AM Scheduled Provider:Sherin Durand PA-C Location:[facility] Appointment Type:Pain Management - Workmans Comp Follow U [facility]04-26-2023 Note [id number]:127[facility] 08-05-2022 Evaluation + Plan noteExtracted from: Title:Pain management follow-up Author:Sherin Durand PA-C Date:08/05/22 Impression and Plan Patient is a 62-year-old female. She has a past medical history significant for a [facility] claim. The approved diagnosis codes are S35.5XXA sprain of ligaments of the lumbar spine. Recent injection has given her significant relief. 90%. At this time she is comfortable and happy. She is doing well. She does not feel that she requires anything from our services at this time. She is going to keep a close eye on this though because she wants to make sure she is feeling well for November when her daughter is getting . At this time she is going to follow-up as needed. She will call the clinic sooner if necessary. Future Appointments Appointment Date:02/13/2023 12:30:00 PM Scheduled Provider:Maia Hassan MD Location:[facility] Appointment Type:URO Office Visit [facility]05-13-2022 Evaluation + Plan noteExtracted from: Title:Post-anesthesia - General Author:Nathanael Corrales DO Date:04/08/22 Plan Transfer/ Discharge: Condition stable. Extracted from: Title:Pre-anesthesia - Adult Author:Nathanael Lozada Jr., DO Date:04/08/22 Plan [employer] (ASA) physical status classification: Class II. Anesthetic Preoperative Plan Anesthesia: General. . Anesthetic plan, risks, benefits, and alternatives discussed with the patient and/or family. Patient verbalized understanding. Adverse reactions, complications, and alternatives discujssed. Consent signed and on chart.. Future Appointments Appointment Date:02/13/2023 12:30:00 PM Scheduled Provider:Maia Hassan MD Location:[facility] Appointment Type:[facility] Future Appointments Appointment Date:02/13/2023 12:30:00 PM Scheduled Provider:Maia Hassan MD Location:[facility] Appointment Type:[facility] Future Appointments Appointment Date:08/05/2022 01:00:00 PM Scheduled Provider:Sherin Durand PA-C Location:.[facility] Appointment Type:Pain Management - Follow Up (FT) Appointment Date:02/13/2023 12:30:00 PM Scheduled Provider:Maia Hassan MD Location:[facility] Appointment Type[facility] Future Appointments Appointment Date:12/16/2022 08:45:00 AM Scheduled Provider:Sherin Durand PA-C Location:.[facility] Appointment Type:Pain Management - Workmans Comp Follow U Appointment Date:12/16/2022 01:00:00 PM Scheduled Provider: Location:.MAMMOGRAM Appointment Type:MA Screen (FT) Appointment Date:12/16/2022 01:30:00 PM Scheduled Provider: Location:.BD Appointment Type:BD Bone Density (FT) Appointment Date:02/13/2023 12:30:00 PM Scheduled Provider:Maia Hassan MD Location:[facility] Appointment Type:URO Office Visit Future Scheduled Tests Radiology* BD Bone Density DEXA 12/16/22 * MA Mamm Screen w/CAD if perf and 3D Mason 12/16/22 [facility] noteNo assessment information available [facility] Work Phone: Evaluation note* Diagnosis Well woman exam with routine gynecological exam Routine gynecological examination Breast cancer screening by mammogram Pelvic pain in female Unspecified symptom associated with female genital organs documented [facility] Diagnosis Well woman exam with routine gynecological exam Routine gynecological examination Breast cancer screening by mammogram Pelvic pain in female Unspecified symptom associated with female genital organs documented in this encounter [facility] course Narrative No data available for this section [facility] No data available for this section [facility] No data available for this section [facility] Advance Directives No Advanced Directives Records Found Advance Directive Response Recorded Date/ Time Advance Directives No September 5:24pm Advance Directive Response Recorded Date/ Time Advance Directives No September 4:24pm Chief Complaint and Reason for Visit Chief Complaint D49.2 Summary Purpose Family History No Family History Records FoundNo Family History Records Found No data available for this section No Family History Records Found No data available for this section No Family History Records Found Additional Source Comments Care Team (unrecognized sect ion and content) Team Status: Inactive Member Role Status Dates Tash Recio MD Primary Care Provider Active Brett Scott MD Attending Provider Active Team Status: Active Member Role Status Dates Tash Recio MD Primary Care Provider Active Goals (unrecognized section and content) Goals may be documented in a n alternate section INFORMATION SOURCE (unrecogn ized section and content) DATE CREATED AUTHOR 10/12/2022 [facility] DATE CREATED AUTHOR AUTHOR'S ORGANIZ ATION 11/27/2022 [facility] DATE CREATED AUTHOR AUTHOR'S ORGANIZ ATION 12/30/2023 [facility] EPIC DATE CREATED AUTHOR AUTHOR'S ORGANIZ ATION 01/17/2024 [facility] Reason for Visit (unrecogniz ed section and content) Reason Comments Well Women Visit FOR RECORDS PERTAINING TO PATIENTS WHO ARE OR HAVE BEEN ENROLLED IN A CHEMICAL DEPENDENCY/SUBSTANCEABUSE PROGRAM, SOME INFORMATION MAY BE OMITTED. This clinical summary was aggregated from multiple sources. Caution should be exercised in using it in the provision of clinical care. This summary normalizes information from multiple sources, and as a consequence, information in this document may materially change the coding, format and clinical context of patient data. In addition, data may be omitted in some cases. CLINICAL DECISIONS SHOULD BE BASED ON THE PRIMARY CLINICAL RECORDS. [employer] provides no warranty or guarantee of the accuracy or completeness of information in this document.
[2025-01-07 12:07] LABS: Age Gdln ACOG Testing Note (.); HPV Aptima Negative (Negative); IGP, Aptima HPV, rfx 16/18,45 Note (.)
== END 2025-01-01 20:14 | disposition home or self-care (01) ==
LOC: LAB 20:13
PROVIDERS: PCP Family Medicine; Visit Provider Physician Assistant
DX: Z01.419 Encounter for gynecological examination (general) (routine) without abnormal findings (principal)
CPT/HCPCS: 87624; 88175